=== PATIENT | male | born 1960 | race Hispanic/Latino ===

== ENCOUNTER 2017-11-05 21:15 | Emergency (ER) | payer SELFPAY ==
[2017-11-05] MEDS ORDERED: NA CHLORIDE 0.9% 1,000 ML ONE (21:46)
[2017-11-05] MEDS ORDERED: KETOROLAC 30 MG/ML INJ ONE (21:46)
[2017-11-05] MEDS ORDERED: ONDANSETRON 4 MG/2 ML VIAL ONE (21:46)
[2017-11-05 22:11] LABS: Absolute Lymphocytes (CBC) 3.4 K/uL (0.7-4.9); Absolute Monocytes 0.7 K/uL (0.1-1.3); Basophils % 0.6 % (0-1.3); Eosinophils % 7.1 % (0-4.4); Hematocrit 40.2 % (39.6-49.0); Lymphocytes % 43.5 % (15.3-44.8); MCH 32.6 pg (27.0-35.0); MCV 95.3 fL (80-100); MPV 8.2 fL (7.6-11.3); Monocytes % 9.4 % (3.3-12.3); RBC Red Blood Cell Count 4.22 M/uL (4.33-5.43)
[2017-11-05 22:29] LABS: ALT/SGPT 18 U/L (12-78); AST/SGOT 16 U/L (15-37); Albumin 3.7 g/dL (3.4-5.0); Alkaline Phosphatase 83 U/L (45-117); BUN Blood Urea Nitrogen 22 mg/dL (7-18); Bicarbonate 25 mmol/L (21-32); Bilirubin Direct < 0.1 mg/dL (0-0.2); Bilirubin Total 0.2 mg/dL (0.2-1.0); Glucose Level 117 mg/dL (74-106); Lipase 120 U/L (73-393); Potassium 3.7 mmol/L (3.5-5.1); Protein, Total 7.1 g/dL (6.4-8.2); Sodium Level 143 mmol/L (136-145)
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
[2017-11-06 00:49] LABS: Urine Blood NEGATIVE (NEG); Urine Glucose NEGATIVE (NEG); Urine Protein NEGATIVE (NEG); Urine Specific Gravity 1.015 (1.005-1.030)
[2017-11-06 00:50] VITALS: TEMP 99.1
[2017-11-06 00:51] VITALS: O2SAT 100
[2017-11-06 00:53] VITALS: BP 142/95
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
== END 2017-11-06 00:44 | disposition home or self-care (01) ==
LOC: ER 21:15
DX: S29.012A Strain of muscle and tendon of back wall of thorax, initial encounter (principal); V49.9XXA Car occupant (driver) (passenger) injured in unspecified traffic accident, initial encounter; E03.9 Hypothyroidism, unspecified
CPT/HCPCS: 36415; 70450; 71260; 72125; 74177; 80048; 80076; 81003; 83690; 85025; 86850; 86900; 86901; 96361; 96374; 96375; 99285; J2405; J7030; Q9967

== ENCOUNTER 2018-04-03 08:31 | Emergency (ER) | payer SELFPAY ==
--- NOTE | 2018-04-03 09:18 | ER ---
Nurse's Notes [facility] Name: Dario Lindsey Age: 57 yrs Sex: Male : 1960 Arrival Date: 04/03/2018 Time: 08:35 Bed 19 Private MD: None, None Diagnosis: Acute upper respiratory infection, unspecified;Acute pharyngitis Presentation: 04/03 08:38 Presenting complaint: Patient states: Sinus drainage/ congestion, cough and sore throat ss z 2 days. Denies fever. Transition of care: patient was not received from another setting of care. Onset of symptoms was April 01, 2018. Risk Assessment: Do you want to hurt yourself or someone else? Patient reports no desire to harm self or others. Initial Sepsis Screen: Does the patient meet any 2 criteria? No. Patient's initial sepsis screen is negative. Does the patient have a suspected source of infection? No. Patient's initial sepsis screen is negative. Care prior to arrival: None. 08:38 Method Of Arrival: Ambulatory ss 08:38 Acuity: DANIEL 4 ss Historical: - Allergies: 08:39 No Known Allergies; ss - PMHx: 08:39 Hypothyroidism; Hypertension; ss - PSHx: 08:39 None; ss - Immunization history:: Flu vaccine is not up to date. - Social history:: Smoking status: Patient uses tobacco products, denies chronic smoking, but will smoke occasionally. - Ebola Screening: : Patient denies exposure to infectious person Patient denies travel to an Ebola-affected area in the 21 days before illness onset. - Family history:: not pertinent. Screenin:50 Abuse screen: Denies threats or abuse. Denies injuries from another. Nutritional sv screening: No deficits noted. Tuberculosis screening: No symptoms or risk factors identified. Fall Risk None identified. Assessment: 08:50 General: Appears in no apparent distress. uncomfortable, Behavior is calm, cooperative, sv appropriate for age. Pain: Complains of pain in sore throat Pain currently is 7 out of 10 on a pain scale. Neuro: Level of Consciousness is awake, alert, obeys commands, Oriented to person, place, time, situation, Moves all extremities. Full function Gait is steady, Speech is normal. Respiratory: Reports cough that is non-productive, pain with cough Airway is patent Respiratory effort is even, unlabored, Respiratory pattern is regular, symmetrical. EENT: Oral mucosa is moist. Throat is pink. 09:32 Reassessment: Patient appears in no apparent distress at this time. No changes from sv previously documented assessment. Patient and/or family updated on plan of care and expected duration. Pain level reassessed. Patient is alert, oriented x 3, equal unlabored respirations, skin warm/dry/pink. Vital Signs: 08:39 BP 155 / 86; Pulse 86; Resp 17; Temp 97.7(TE); Pulse Ox 99% on R/A; Weight 72.57 kg; ss Pain 7/10; ED Course: 08:35 Patient arrived in ED. sb2 08:35 None, None is Private Physician. sb2 08:38 Triage completed. ss 08:39 Arm band placed on right wrist. ss 08:42 Birdie French, RN is Primary Nurse. sv 08:42 Torrey Goss MD is Attending Physician. curt 08:50 ED physician to see patient. sv 08:50 Patient has correct armband on for positive identification. Bed in low position. Head sv of bed elevated. 09:32 No provider procedures requiring assistance completed. Patient did not have IV access sv during this emergency room visit. Administered Medications: 09:32 Drug: Augmentin 875 mg Route: PO; sv 09:32 Follow up: Response: Medication administered at discharge. sv Outcome: 09:18 Discharge ordered by . [facility] 09:32 Discharged to home ambulatory. sv 09:32 Condition: stable 09:32 Discharge instructions given to patient, Instructed on discharge instructions, follow up and referral plans. medication usage, Demonstrated understanding of instructions, follow-up care, medications, Prescriptions given X 4. 09:32 Patient left the ED. sv Signatures: Birdie French, RN RN Torrey Morales MD MD cha Smirch, Shelby RN RN Adore Amaya sb2
--- NOTE | 2018-04-03 09:18 | EDPHYS ---
Physician Documentation [facility] Name: Dario Lindsey Age: 57 yrs Sex: Male : 1960 Arrival Date: 04/03/2018 Time: 08:35 Bed 19 Private MD: None, None ED Physician Torrey Goss HPI: 04/03 09:11 This 57 yrs old Male presents to ER via Ambulatory with complaints of Sore curt Throat, Cough. 09:11 The patient presents with sore throat. The patient describes throat pain as burning. curt Onset: The symptoms/episode began/occurred 2 day(s) ago. Severity of symptoms: At their worst the symptoms were mild, in the emergency department the symptoms are unchanged. Modifying factors: The symptoms are alleviated by nothing, the symptoms are aggravated by swallowing. Associated signs and symptoms: The patient has no apparent associated signs or symptoms. The patient has experienced similar episodes in the past, a few times. Historical: - Allergies: 08:39 No Known Allergies; ss - PMHx: 08:39 Hypothyroidism; Hypertension; ss - PSHx: 08:39 None; ss - Immunization history:: Flu vaccine is not up to date. - Social history:: Smoking status: Patient uses tobacco products, denies chronic smoking, but will smoke occasionally. - Ebola Screening: : Patient denies exposure to infectious person Patient denies travel to an Ebola-affected area in the 21 days before illness onset. - Family history:: not pertinent. ROS: 09:11 Constitutional: Negative for fever, chills, and weight loss, Eyes: Negative for injury, curt pain, redness, and discharge, Neck: Negative for injury, pain, and swelling, Cardiovascular: Negative for chest pain, palpitations, and edema, Respiratory: Negative for shortness of breath, cough, wheezing, and pleuritic chest pain, Abdomen/GI: Negative for abdominal pain, nausea, vomiting, diarrhea, and constipation, Back: Negative for injury and pain, : Negative for injury, bleeding, discharge, and swelling, MS/Extremity: Negative for injury and deformity, Skin: Negative for injury, rash, and discoloration, Neuro: Negative for headache, weakness, numbness, tingling, and seizure, Psych: Negative for depression, anxiety, suicide ideation, homicidal ideation, and hallucinations, Allergy/Immunology: Negative for hives, rash, and allergies, Endocrine: Negative for neck swelling, polydipsia, polyuria, polyphagia, and marked weight changes, Hematologic/Lymphatic: Negative for swollen nodes, abnormal bleeding, and unusual bruising. 09:11 ENT: Positive for difficulty swallowing, nasal discharge, rhinorrhea, sore throat. Exam: 09:11 Constitutional: This is a well developed, well nourished patient who is awake, alert, curt and in no acute distress. Head/Face: Normocephalic, atraumatic. Eyes: Pupils equal round and reactive to light, extra-ocular motions intact. Lids and lashes normal. Conjunctiva and sclera are non-icteric and not injected. Cornea within normal limits. Periorbital areas with no swelling, redness, or edema. Neck: Trachea midline, no thyromegaly or masses palpated, and no cervical lymphadenopathy. Supple, full range of motion without nuchal rigidity, or vertebral point tenderness. No Meningismus. Chest/axilla: Normal chest wall appearance and motion. Nontender with no deformity. No lesions are appreciated. Cardiovascular: Regular rate and rhythm with a normal S1 and S2. No gallops, murmurs, or rubs. Normal PMI, no JVD. No pulse deficits. Respiratory: Lungs have equal breath sounds bilaterally, clear to auscultation and percussion. No rales, rhonchi or wheezes noted. No increased work of breathing, no retractions or nasal flaring. Abdomen/GI: Soft, non-tender, with normal bowel sounds. No distension or tympany. No guarding or rebound. No evidence of tenderness throughout. Back: No spinal tenderness. No costovertebral tenderness. Full range of motion. Male : Normal genitalia with no discharge or lesions. Skin: Warm, dry with normal turgor. Normal color with no rashes, no lesions, and no evidence of cellulitis. MS/ Extremity: Pulses equal, no cyanosis. Neurovascular intact. Full, normal range of motion. Neuro: Awake and alert, GCS 15, oriented to person, place, time, and situation. Cranial nerves II-XII grossly intact. Motor strength 5/5 in all extremities. Sensory grossly intact. Cerebellar exam normal. Normal gait. Psych: Awake, alert, with orientation to person, place and time. Behavior, mood, and affect are within normal limits. 09:11 ENT: Posterior pharynx: Tonsils: with erythema, Uvula: midline, erythema, swelling, that is mild, erythema, that is mild, exudate, is not appreciated. Vital Signs: 08:39 BP 155 / 86; Pulse 86; Resp 17; Temp 97.7(TE); Pulse Ox 99% on R/A; Weight 72.57 kg; ss Pain 7/10; MDM: 08:43 Patient medically screened. [facility] 09:17 Data reviewed: vital signs, nurses notes. [facility] Administered Medications: 09:32 Drug: Augmentin 875 mg Route: PO; sv 09:32 Follow up: Response: Medication administered at discharge. sv Disposition: 04/03/18 09:18 Discharged to Home. Impression: Acute upper respiratory infection, unspecified, Acute pharyngitis. - Condition is Stable. - Discharge Instructions: Hypertension, Pharyngitis, Upper Respiratory Infection, Adult, Cool Mist Vaporizer, Hypertension, [id number], Pharyngitis, [id number], Cough, Adult, Sore Throat, [id number]. - Prescriptions for Cheratussin AC 10- 100 mg/5 mL Oral liquid - take 10 milliliter by ORAL route every 4 hours; 120 milliliter. Augmentin 875- 125 mg Oral Tablet - take 1 tablet by ORAL route every 12 hours for 10 days; 20 tablet. Claritin 10 mg Oral Tablet - take 1 tablet by ORAL route once daily As needed; 30 tablet. Medrol (Sundeep) 4 mg Oral Tablets, Dose Pack - take 1 tablet by ORAL route as directed - follow package instructions; 1 packet. - Work release form, Medication Reconciliation Form, Thank You Letter, Antibiotic Education, Prescription Opioid Use form. - Follow up: Private Physician; When: 2 - 3 days; Reason: Recheck today's complaints, Continuance of care, Re-evaluation by your physician. - Problem is new. - Symptoms have improved. Signatures: Birdie French RN RN Torrey Morales MD MD cha Smirch, Shelby, RN RN ss Corrections: (The following items were deleted from the chart) 09:32 09:18 04/03/2018 09:18 Discharged to Home. Impression: Acute upper respiratory sv infection, unspecified; Acute pharyngitis. Condition is Stable. Forms are Medication Reconciliation Form, Thank You Letter, Antibiotic Education, Prescription Opioid Use. Follow up: Private Physician; When: 2 - 3 days; Reason: Recheck today's complaints, Continuance of care, Re-evaluation by your physician. Problem is new. Symptoms have improved. curt
[2018-04-03] MEDS ORDERED: AMOX/K CLAV 875 MG TAB ONE (09:38)
[2018-04-03 09:42] VITALS: BP 155/86; TEMP 97.7; O2SAT 99
== END 2018-04-03 09:32 | disposition home or self-care (01) ==
LOC: ER 08:31
DX: J06.9 Acute upper respiratory infection, unspecified (principal); J02.9 Acute pharyngitis, unspecified; E03.9 Hypothyroidism, unspecified; I10 Essential (primary) hypertension
CPT/HCPCS: 99283

== ENCOUNTER 2018-04-11 09:01 | Emergency (ER) | payer BC, SELFPAY ==
--- NOTE | 2018-04-11 10:06 | EDPHYS ---
Physician Documentation [facility] Name: Dario Lindsey Age: 57 yrs Sex: Male : 1960 Arrival Date: 04/11/2018 Time: 09:04 Bed 8 Private MD: ED Physician Torrey Goss HPI: 04/11 09:47 This 57 yrs old Male presents to ER via Ambulatory with complaints of Fever, curt Cough. 09:47 The patient reports fever, that was measured at 100 degrees Fahrenheit. Onset: The curt symptoms/episode began/occurred 3 day(s) ago. Modifying factors: there are no obvious modifying factors. Associated signs and symptoms: Pertinent positives: chills, cough. Severity of symptoms: At their worst the symptoms were moderate in the emergency department the symptoms are unchanged. The patient has not experienced similar symptoms in the past. Historical: - Allergies: 09:10 No Known Allergies; aa5 - PMHx: 09:10 Hypertension; Hypothyroidism; aa5 - PSHx: 09:10 None; aa5 - Immunization history:: Flu vaccine is not up to date. - Social history:: Smoking status: Patient uses tobacco products, 4 cigarettes a day . - Ebola Screening: : No symptoms or risks identified at this time. - Family history:: not pertinent. ROS: 09:47 Eyes: Negative for injury, pain, redness, and discharge, ENT: Negative for injury, curt pain, and discharge, Neck: Negative for injury, pain, and swelling, Cardiovascular: Negative for chest pain, palpitations, and edema, Abdomen/GI: Negative for abdominal pain, nausea, vomiting, diarrhea, and constipation, Back: Negative for injury and pain, : Negative for injury, bleeding, discharge, and swelling, MS/Extremity: Negative for injury and deformity, Skin: Negative for injury, rash, and discoloration, Neuro: Negative for headache, weakness, numbness, tingling, and seizure, Psych: Negative for depression, anxiety, suicide ideation, homicidal ideation, and hallucinations, Allergy/Immunology: Negative for hives, rash, and allergies, Endocrine: Negative for neck swelling, polydipsia, polyuria, polyphagia, and marked weight changes, Hematologic/Lymphatic: Negative for swollen nodes, abnormal bleeding, and unusual bruising. 09:47 Constitutional: Positive for body aches, chills. 09:47 Respiratory: Positive for cough. Exam: 09:47 Constitutional: This is a well developed, well nourished patient who is awake, alert, curt and in no acute distress. Head/Face: Normocephalic, atraumatic. Eyes: Pupils equal round and reactive to light, extra-ocular motions intact. Lids and lashes normal. Conjunctiva and sclera are non-icteric and not injected. Cornea within normal limits. Periorbital areas with no swelling, redness, or edema. ENT: Nares patent. No nasal discharge, no septal abnormalities noted. Tympanic membranes are normal and external auditory canals are clear. Oropharynx with no redness, swelling, or masses, exudates, or evidence of obstruction, uvula midline. Mucous membranes moist. Neck: Trachea midline, no thyromegaly or masses palpated, and no cervical lymphadenopathy. Supple, full range of motion without nuchal rigidity, or vertebral point tenderness. No Meningismus. Chest/axilla: Normal chest wall appearance and motion. Nontender with no deformity. No lesions are appreciated. Cardiovascular: Regular rate and rhythm with a normal S1 and S2. No gallops, murmurs, or rubs. Normal PMI, no JVD. No pulse deficits. Respiratory: Lungs have equal breath sounds bilaterally, clear to auscultation and percussion. No rales, rhonchi or wheezes noted. No increased work of breathing, no retractions or nasal flaring. Abdomen/GI: Soft, non-tender, with normal bowel sounds. No distension or tympany. No guarding or rebound. No evidence of tenderness throughout. Back: No spinal tenderness. No costovertebral tenderness. Full range of motion. Male : Normal genitalia with no discharge or lesions. Skin: Warm, dry with normal turgor. Normal color with no rashes, no lesions, and no evidence of cellulitis. MS/ Extremity: Pulses equal, no cyanosis. Neurovascular intact. Full, normal range of motion. Neuro: Awake and alert, GCS 15, oriented to person, place, time, and situation. Cranial nerves II-XII grossly intact. Motor strength 5/5 in all extremities. Sensory grossly intact. Cerebellar exam normal. Normal gait. Psych: Awake, alert, with orientation to person, place and time. Behavior, mood, and affect are within normal limits. Vital Signs: 09:10 BP 147 / 89; Pulse 80; Resp 18 S; Temp 97.8(O); Pulse Ox 98% on R/A; Weight 73.48 kg aa5 (R); Height 5 ft. 7 in. (170.18 cm) (R); Pain 0/10; 09:10 Body Mass Index 25.37 (73.48 kg, 170.18 cm) aa5 MDM: 09:15 Patient medically screened. [facility] 09:48 Data reviewed: vital signs, nurses notes, lab test result(s), radiologic studies. [facility] 04/11 09:15 Order name: Influenza Screen (a \T\ B); Complete Time: 10:05 [facility] 04/11 09:15 Order name: Chest Pa And Lat (2 Views) XRAY [facility] 04/11 09:46 Order name: EKG; Complete Time: 09:47 [facility] 04/11 09:46 Order name: EKG - Nurse/Tech; Complete Time: 10:23 [facility] Administered Medications: 10:32 Drug: Zithromax 500 mg Route: PO; [facility] 10:38 Follow up: Response: Medication administered at discharge. aa5 Disposition: 04/11/18 10:06 Discharged to Home. Impression: Fever, unspecified, Cough. - Condition is Stable. - Discharge Instructions: Fever, Adult, Cool Mist Vaporizer, Cough, Adult, Faqh-vl-Grjh, Cough, Adult. - Prescriptions for Zithromax 500 mg Oral Tablet - take 1 tablet by ORAL route once daily for 4 days; 4 tablet. - Medication Reconciliation Form, Thank You Letter, Antibiotic Education, Prescription Opioid Use, Work release form form. - Follow up: Private Physician; When: 2 - 3 days; Reason: Recheck today's complaints, Continuance of care, Re-evaluation by your physician. - Problem is new. - Symptoms have improved. Signatures: Dispatcher [employer] EDMS Torrey Goss MD MD cha Calderon, Audri, RN RN aa5 Corrections: (The following items were deleted from the chart) 10:39 10:06 04/11/2018 10:06 Discharged to Home. Impression: Fever, unspecified; Cough. aa5 Condition is Stable. Discharge Instructions: Fever, Adult, Cool Mist Vaporizer, Cough, Adult, Gcrr-[id number], Cough, Adult. Prescriptions for Zithromax 500 mg Oral Tablet - take 1 tablet by ORAL route once daily for 4 days; 4 tablet. and Forms are Medication Reconciliation Form, Thank You Letter, Antibiotic Education, Prescription Opioid Use. Follow up: Private Physician; When: 2 - 3 days; Reason: Recheck today's complaints, Continuance of care, Re-evaluation by your physician. Problem is new. Symptoms have improved. curt
--- NOTE | 2018-04-11 10:06 | ER ---
Nurse's Notes [facility] Name: Dario Lindsey Age: 57 yrs Sex: Male : 1960 Arrival Date: 04/11/2018 Time: 09:04 Bed 8 Private MD: Diagnosis: Fever, unspecified;Cough Presentation: 04/11 09:10 Presenting complaint: Patient states: cough x 1-2 weeks ago. Pt reports cough is aa5 productive at times with whitish sputum. Pt also reports chest congestion and states "I think I had a fever last night". Pt states "my back hurts when I cough". Pt reports being seen here 04/03/18 and prescribed Augmentin. 09:10 Transition of care: patient was not received from another setting of care. Onset of aa5 symptoms was April 2018. Risk Assessment: Do you want to hurt yourself or someone else? Patient reports no desire to harm self or others. Initial Sepsis Screen: Does the patient meet any 2 criteria? No. Patient's initial sepsis screen is negative. Does the patient have a suspected source of infection? No. Patient's initial sepsis screen is negative. Care prior to arrival: None. 09:10 Method Of Arrival: Ambulatory aa5 09:10 Acuity: DANIEL 3 aa5 Historical: - Allergies: 09:10 No Known Allergies; aa5 - PMHx: 09:10 Hypertension; Hypothyroidism; aa5 - PSHx: 09:10 None; aa5 - Immunization history:: Flu vaccine is not up to date. - Social history:: Smoking status: Patient uses tobacco products, 4 cigarettes a day . - Ebola Screening: : No symptoms or risks identified at this time. - Family history:: not pertinent. Screenin:10 Abuse screen: Denies threats or abuse. Nutritional screening: No deficits noted. aa5 Tuberculosis screening: No symptoms or risk factors identified. Fall Risk None identified. Assessment: 09:10 General: Appears comfortable, Behavior is calm, cooperative. Pain: Complains of pain in aa5 back only with cough Pain currently is 0 out of 10 on a pain scale. Quality of pain is described as aching, sore. Neuro: Level of Consciousness is awake, alert, obeys commands, Oriented to person, place, time, situation. Cardiovascular: Heart tones S1 S2 present Rhythm is regular. Respiratory: Reports cough Airway is patent Respiratory effort is even, unlabored, Respiratory pattern is regular, symmetrical, Breath sounds are clear bilaterally. Denies shortness of breath. GI: No signs and/or symptoms were reported involving the gastrointestinal system. : No signs and/or symptoms were reported regarding the genitourinary system. EENT: No signs and/or symptoms were reported regarding the EENT system. Derm: Skin is dry, Skin is normal, Skin temperature is warm. Musculoskeletal: Range of motion: intact in all extremities. 10:38 Neuro: Level of Consciousness is awake, alert, obeys commands, Oriented to person, aa5 place, time, situation. Respiratory: Airway is patent Respiratory effort is even, unlabored, Respiratory pattern is regular, symmetrical. Derm: Skin is dry, Skin is normal, Skin temperature is warm. Vital Signs: 09:10 BP 147 / 89; Pulse 80; Resp 18 S; Temp 97.8(O); Pulse Ox 98% on R/A; Weight 73.48 kg aa5 (R); Height 5 ft. 7 in. (170.18 cm) (R); Pain 0/10; 09:10 Body Mass Index 25.37 (73.48 kg, 170.18 cm) aa5 ED Course: 09:04 Patient arrived in ED. mr 09:13 Hawa Lyle, RN is Primary Nurse. aa5 09:13 Arm band placed on Patient placed in an exam room, on a stretcher. aa5 09:13 Patient has correct armband on for positive identification. Bed in low position. Call aa5 light in reach. Side rails up X 1. Adult w/ patient. 09:14 Triage completed. aa5 09:15 Torrey Goss MD is Attending Physician. curt 09:30 Flu and/or RSV swab sent to lab. jb1 10:01 Patient moved to radiology via wheelchair. jb2 10:03 X-ray completed. Patient tolerated procedure well. Patient moved back from radiology. sw 10:03 Chest Pa And Lat (2 Views) XRAY In Process Unspecified. EDMS 10:24 EKG done, by commercial tire service technician. reviewed by Torrey Goss MD. at1 10:30 No provider procedures requiring assistance completed. Patient did not have IV access aa5 during this emergency room visit. Administered Medications: 10:32 Drug: Zithromax 500 mg Route: PO; aa5 10:38 Follow up: Response: Medication administered at discharge. aa5 Outcome: 10:06 Discharge ordered by . curt 10:38 Discharged to home ambulatory, with significant other. aa5 10:38 Condition: stable 10:38 Discharge instructions given to patient, Instructed on discharge instructions, follow up and referral plans. medication usage, Demonstrated understanding of instructions, follow-up care, medications, Prescriptions given X 1, Pt instructed to continue Augmentin by Dr. Goss. 10:39 Patient left the ED. aa5 Signatures: Dispatcher [employer] EDMS Magdy Suarez jb1 Torrey Goss MD MD cha Rivera, Martha Roblero, Gonsalo jb2 Hawa Lyle, BRITTANY RN aa5 Mariana Culp, casket liner EKG Tat1 Cally Aguilar Corrections: (The following items were deleted from the chart) 09:19 09:10 Presenting complaint: Patient states: cough x 1-2 weeks ago. Pt reports cough is aa5 productive at times with whitish sputum. Pt also reports chest congestion and states "I think I had a fever last night". Pt states "my back hurts when I cough" aa5 10:03 10:02 X-ray completed. Portable x-ray completed in exam room. Patient tolerated sw procedure well. sw
[2018-04-11] MEDS ORDERED: AZITHROMYCIN 250 MG TAB ONE (10:41)
--- NOTE | 2018-04-11 10:45 | RAD REPORT ---
EXAM DESCRIPTION: RAD - Chest Pa And Lat (2 Views) - 04/11/2018 10:05 am CLINICAL HISTORY: COUGH Chest pain. COMPARISON: No comparisons FINDINGS: The lungs are clear. The heart is normal in size. No displaced fractures. IMPRESSION: No acute or concerning finding suspected.
[2018-04-11 10:47] VITALS: BP 147/89; TEMP 97.8; O2SAT 98
--- NOTE | 2018-04-11 12:03 | EKG ---
Test Date: 2018-04-11 Test Time: 10:15:58 Configuration Engineer: VINH MEASUREMENT RESULTS: Intervals: Rate: 69 CO: 120 QRSD: 108 QT: 394 QTc: 422 [place]: P: 73 CO: 120 QRS: -2 T: 48 INTERPRETIVE STATEMENTS: Normal sinus rhythm Right bundle branch block Abnormal ECG No previous ECG available for comparison Electronically Signed On 04-11-18 12:02:42 [employer] by Denver Zarate
== END 2018-04-11 10:39 | disposition home or self-care (01) ==
LOC: ER 09:01
DX: R50.9 Fever, unspecified (principal); R05 Cough; R94.31 Abnormal electrocardiogram [ECG] [EKG]; I45.10 Unspecified right bundle-branch block; F17.210 Nicotine dependence, cigarettes, uncomplicated
CPT/HCPCS: 71046; 87804; 93005; 99284

== ENCOUNTER 2018-05-29 09:08 | Emergency (ER) | payer BC, SELFPAY ==
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
[2018-05-29] MEDS ORDERED: IBUPROFEN 400 MG TAB ONE (09:47)
[2018-05-29 10:11] VITALS: TEMP 97.3
[2018-05-29 10:12] VITALS: BP 148/87; O2SAT 99
== END 2018-05-29 10:07 | disposition home or self-care (01) ==
LOC: ER 09:08
DX: M62.830 Muscle spasm of back (principal); I10 Essential (primary) hypertension; E03.9 Hypothyroidism, unspecified; Z87.891 Personal history of nicotine dependence
CPT/HCPCS: 99282

== ENCOUNTER 2022-03-19 17:41 | Emergency (ER) | payer SELFPAY ==
--- OUTSIDE RECORDS SUMMARY | 2022-03-19 17:46 | XMS REPORT | Continuity of Care Document ---
:1960 Author Organization [facility] t Address [address] [place] [address] Care Team Providers Name Role Phone Nicky Lindsey Primary Care Physician [phone] Problems This patient has no known problems. Allergies, Adverse Reactions, Alerts This patient has no known allergies or adverse reactions. Medications Ordered Filled Start Stop Current Ordering Indication Dosage Frequency Signature Comments Components Source Medication Medication Date Date Medication? Clinician (SIG) Name Name TAKE 1 No TABLET BY 8-29 MOUTH ONCE 00:00: DAILY 00 atorvastati 2021-0 No 1mg n 40 mg 5-25 tablet 00:00: 00 amlodipine 2021-0 No 1mg 10 mg 5-25 tablet 00:00: 00 Dose 2021-0 No Unknown 5-25 00:00: 00 Dose 2021-0 No Unknown 3-12 00:00: 00 Dose 2021-0 No Unknown 3-12 00:00: 00 Dose 2021-0 No Unknown 3-12 00:00: 00 Dose 2021-0 No Unknown 3-12 00:00: 00 Dose 2021-0 No Unknown 3-12 00:00: 00 Dose 2021-0 No Unknown 3-12 00:00: 00 Dose 2021-0 No Unknown 3-12 00:00: 00 Dose 2021-0 No Unknown 3-12 00:00: 00 Dose 2021-0 No Unknown 3-12 00:00: 00 Dose 2021-0 No Unknown 3-12 00:00: 00 Dose 2021-0 No Unknown 3-12 00:00: 00 Dose 2021-0 No Unknown 3-12 00:00: 00 Dose 2021-0 No Unknown 3-12 00:00: 00 Dose 2022-0 No Unknown 3-12 00:00: 00 Dose 2022-0 No Unknown 3-12 00:00: 00 Dose 2022-0 No Unknown 3-12 00:00: 00 Dose 2022-0 No Unknown 3-12 00:00: 00 Dose 2022-0 No Unknown 3-12 00:00: 00 Dose 2022-0 No Unknown 3-12 00:00: 00 Dose 2022-0 No Unknown 3-12 00:00: 00 Dose 2022-0 No Unknown 3-12 00:00: 00 Dose 2022-0 No Unknown 3-12 00:00: 00 Dose 2022-0 No Unknown 3-12 00:00: 00 Dose 2022-0 No Unknown 3-12 00:00: 00 Dose 2022-0 No Unknown 3-12 00:00: 00 Dose 2022-0 No Unknown 3-12 00:00: 00 Dose 2022-0 No Unknown 3-12 00:00: 00 Dose 2022-0 No Unknown 3-12 00:00: 00 Dose 2022-0 No Unknown 3-12 00:00: 00 Dose 2022-0 No Unknown 3-12 00:00: 00 Dose 2022-0 No Unknown 3-12 00:00: 00 Dose 2022-0 No Unknown 3-12 00:00: 00 Dose 2022-0 No Unknown 3-12 00:00: 00 Dose 2022-0 No Unknown 3-12 00:00: 00 Dose 2022-0 No Unknown 3-12 00:00: 00 Dose 2022-0 No Unknown 3-12 00:00: 00 Dose 2022-0 No Unknown 3-12 00:00: 00 Dose 2022-0 No Unknown 3-12 00:00: 00 Dose 2022-0 No Unknown 3-12 00:00: 00 Dose 2022-0 No Unknown 3-12 00:00: 00 Dose 2022-0 No Unknown 3-12 00:00: 00 Dose 2022-0 No Unknown 3-12 00:00: 00 Dose 2022-0 No Unknown 3-12 00:00: 00 Dose 2022-0 No Unknown 3-12 00:00: 00 Dose 2022-0 No Unknown 3-12 00:00: 00 Dose 2022-0 No Unknown 3-12 00:00: 00 Dose 2022-0 No Unknown 3-12 00:00: 00 Dose 2022-0 No Unknown 3-12 00:00: 00 Dose 2022-0 No Unknown 3-12 00:00: 00 Dose 2022-0 No Unknown 3-12 00:00: 00 Dose 2022-0 No Unknown 3-12 00:00: 00 Dose 2022-0 No Unknown 3-12 00:00: 00 Dose 2022-0 No Unknown 3-12 00:00: 00 Dose 2022-0 No Unknown 3-12 00:00: 00 Dose 2022-0 No Unknown 3-12 00:00: 00 Dose 2022-0 No Unknown 3-12 00:00: 00 Dose 2022-0 No Unknown 3-12 00:00: 00 Dose 2-0 No Unknown 3-12 00:00: 00 Dose 2-0 No Unknown 3-12 00:00: 00 Dose 2022-0 No Unknown 3-12 00:00: 00 Dose 2022-0 No Unknown 3-12 00:00: 00 Dose 2-0 No Unknown 3-12 00:00: 00 Dose 2-0 No Unknown 3-12 00:00: 00 Dose 2-0 No Unknown 3-12 00:00: 00 amlodipine 2-0 No 1mg 10 mg 3-12 tablet 00:00: 00 Dose 2-0 No Unknown 3-12 00:00: 00 atorvastati 2-0 No 1mg n 40 mg 3-12 tablet 00:00: 00 Dose 2-0 No Unknown 3-12 00:00: 00 Dose 2022-0 No Unknown 3-12 00:00: 00 Dose 2022-0 No Unknown 3-12 00:00: 00 Dose 2022-0 No Unknown 3-12 00:00: 00 Dose 2022-0 No Unknown 3-12 00:00: 00 Dose 2022-0 No Unknown 3-12 00:00: 00 Dose 2022-0 No Unknown 3-12 00:00: 00 Dose 2022-0 No Unknown 3-12 00:00: 00 Dose 2022-0 No Unknown 3-12 00:00: 00 Dose 2022-0 No Unknown 3-12 00:00: 00 Dose 2022-0 No Unknown 3-12 00:00: 00 Dose 1-1 No Unknown 1-18 00:00: 00 amlodipine 2020-1 No 1mg 10 mg 1-18 tablet 00:00: 00 atorvastati 2020-1 No 1mg n 40 mg 1-18 tablet 00:00: 00 atorvastati 2020-0 No 1mg n 40 mg 8-12 tablet 00:00: 00 pravastatin 2020-0 No 1mg 20 mg 8-11 tablet 00:00: 00 Dose 2019-0 No Unknown 7-02 00:00: 00 cetirizine 2019-0 No 1mg 5 7-02 mg-pseudoep 00:00: hedrine ER 00 120 mg tablet,exte nded release,12h r prednisone 2019-0 No 1mg 20 mg 7-02 tablet 00:00: 00 fluticasone 2019-0 No 1mcg/ac propionate 7-02 tuation 50 00:00: mcg/actuati 00 on nasal spray,suspe nsion amoxicillin 2019-0 No 1mg 500 mg 7-02 capsule 00:00: 00 amlodipine 2019-0 No 1mg 10 mg 7-02 tablet 00:00: 00 amlodipine 2019-0 No 1mg 10 mg 7-02 tablet 00:00: 00 amlodipine 2018-0 No 1mg 5 mg tablet 9-29 00:00: 00 benazepril 2018-0 No 1mg 20 mg 9-29 tablet 00:00: 00 naproxen 2016-0 No 1mg 500 mg 7-29 tablet 00:00: 00 cyclobenzap 2016-0 No 1mg rine 10 mg 7-29 tablet 00:00: 00 amoxicillin 2015-0 No 2mg 500 mg 8-02 capsule 00:00: 00 Immunizations Ordered Immunization Filled Immunization Date Status Commen ts Source Name Name influenza, high-dose, 2021-06-11 Completed quadrivalent 00:00:00 Pneumococcal conjugate 2021-06-11 Completed P 00:00:00 Vital Signs Vital Name Observation Time Observation Value Comments Source BP Systolic 2022-03-11 13:36:00 126 mm[Hg] BP Diastolic 2022-03-11 13:36:00 75 mm[Hg] Weight Measured 2022-03-11 13:36:00 151.20 pounds Height Measured 2022-03-11 13:36:00 68.98 inches Body Temperature 2022-03-11 13:36:00 98.10 degrees Heart Rate 2022-03-11 13:36:00 68.00 /min Respiratory Rate 2022-03-11 13:36:00 BP Systolic 2022-01-25 16:09:00 154 mm[Hg] BP Diastolic 2022-01-25 16:09:00 82 mm[Hg] Weight Measured 2022-01-25 16:09:00 152.60 pounds Height Measured 2022-01-25 16:09:00 68.98 inches Body Temperature 2022-01-25 16:09:00 97.70 degrees Heart Rate 2022-01-25 16:09:00 67.00 /min Respiratory Rate 2022-01-25 16:09:00 16.00 /min BP Systolic 2021-08-24 16:41:00 129 mm[Hg] BP Diastolic 2021-08-24 16:41:00 72 mm[Hg] Weight Measured 2021-08-24 16:41:00 151.40 pounds Height Measured 2021-08-24 16:41:00 68.98 inches Body Temperature 2021-08-24 16:41:00 98.20 degrees Heart Rate 2021-08-24 16:41:00 75.00 /min Respiratory Rate 2021-08-24 16:41:00 18.00 /min BP Systolic 2021-06-11 09:20:00 136 mm[Hg] BP Diastolic 2021-06-11 09:20:00 74 mm[Hg] Weight Measured 2021-06-11 09:20:00 155.60 pounds Height Measured 2021-06-11 09:20:00 68.98 inches Body Temperature 2021-06-11 09:20:00 98.10 degrees Heart Rate 2021-06-11 09:20:00 63.00 /min Respiratory Rate 2021-06-11 09:20:00 21.00 /min BP Systolic 2021-02-17 16:36:00 126 mm[Hg] BP Diastolic 2021-02-17 16:36:00 67 mm[Hg] Weight Measured 2021-02-17 16:36:00 152.80 pounds Height Measured 2021-02-17 16:36:00 68.98 inches Body Temperature 2021-02-17 16:36:00 98.40 degrees Heart Rate 2021-02-17 16:36:00 76.00 /min Respiratory Rate 2021-02-17 16:36:00 24.00 /min BP Systolic 2020-10-30 08:43:00 131 mm[Hg] BP Diastolic 2020-10-30 08:43:00 71 mm[Hg] Weight Measured 2020-10-30 08:43:00 153.20 pounds Height Measured 2020-10-30 08:43:00 68.98 inches Body Temperature 2020-10-30 08:43:00 98.20 degrees Heart Rate 2020-10-30 08:43:00 67.00 /min Respiratory Rate 2020-10-30 08:43:00 17.00 /min BP Systolic 2020-06-19 09:38:00 116 mm[Hg] BP Diastolic 2020-06-19 09:38:00 72 mm[Hg] Weight Measured 2020-06-19 09:38:00 157.00 pounds Height Measured 2020-06-19 09:38:00 68.98 inches Body Temperature 2020-06-19 09:38:00 97.80 degrees Heart Rate 2020-06-19 09:38:00 77.00 /min Respiratory Rate 2020-06-19 09:38:00 16.00 /min BP Systolic 2018-10-01 08:21:00 138 mm[Hg] BP Diastolic 2018-10-01 08:21:00 79 mm[Hg] Weight Measured 2018-10-01 08:21:00 160.00 pounds Height Measured 2018-10-01 08:21:00 68.98 inches Body Temperature 2018-10-01 08:21:00 98.50 degrees Heart Rate 2018-10-01 08:21:00 72.00 /min Respiratory Rate 2018-10-01 08:21:00 16.00 /min BP Systolic 2017-12-29 13:48:00 158 mm[Hg] BP Diastolic 2017-12-29 13:48:00 88 mm[Hg] Weight Measured 2017-12-29 13:48:00 161.20 pounds Height Measured 2017-12-29 13:48:00 68.98 inches Body Temperature 2017-12-29 13:48:00 98.60 degrees Heart Rate 2017-12-29 13:48:00 75.00 /min Respiratory Rate 2017-12-29 13:48:00 18.00 /min BP Systolic 2015-10-29 08:43:00 138 mm[Hg] BP Diastolic 2015-10-29 08:43:00 90 mm[Hg] Weight Measured 2015-10-29 08:43:00 155.80 pounds Height Measured 2015-10-29 08:43:00 68.98 inches Body Temperature 2015-10-29 08:43:00 98.00 degrees Heart Rate 2015-10-29 08:43:00 78.00 /min Respiratory Rate 2015-10-29 08:43:00 17.00 /min Procedures This patient has no known procedures. Plan of Care Planned Activity Planned Date Details Comments Source Goal Plan of Care Note [code = 72489-7] Goal Plan of Care Note [code = 13880-4] Goal Plan of Care Note [code = 38818-2] Goal Plan of Care Note [code = 76011-7] Goal Plan of Care Note [code = 91022-3] Goal Plan of Care Note [code = 32202-3] Goal Plan of Care Note [code = 76295-2] Goal Plan of Care Note [code = 91472-7] Goal Plan of Care Note [code = 02126-7] Goal Plan of Care Note [code = 72657-9] Goal Plan of Care Note [code = 98352-4] Goal Plan of Care Note [code = 95225-8] Goal Plan of Care Note [code = 28933-7] Goal Plan of Care Note [code = 26899-9] Goal Plan of Care Note [code = 98302-7] Goal Plan of Care Note [code = 30406-8] Goal Plan of Care Note [code = 84900-8] Goal Plan of Care Note [code = 81601-1] Goal Plan of Care Note [code = 51920-6] Goal Plan of Care Note [code = 34286-4] Goal Plan of Care Note [code = 58468-1] Encounters Start End Encounter Admission Attending Care Care Encounter Source Date/Time Date/Time Type Type Clinicians Facility Department ID 2022-03-11 2022-03-11 Outpatient [facility] [id number] 022 Howie 13:26:46 13:26:46 1210 F Jose 2022-03-11 2022-03-11 Outpatient [id number] 00:00:00 00:00:00 Visit [id number] 2022-02-20 2022-02-20 Outpatient [facility] [id number] 022 Howie 14:10:30 14:10:30 1121 F Jose 2022-01-27 2022-01-27 Outpatient [facility] SFA [id number] 022 Howie 14:24:08 14:24:08 1028 F Jose 2022-01-25 2022-01-25 Outpatient [facility] [id number] 022 Howie 16:04:52 16:04:52 1026 F Jose Results Test Description Test Time Test Comments Results Result Comments Source CBC W/AUTO DIFF 2022-02-21 00:00:00 Test Item Value Reference Range Interpretation Comme nts WBC (test code = 1001) 8.9 K/UL RBC (test code = 1002) 4.12 M/UL HEMOGLOBIN (test code = 1003) 12.8 G/DL HEMATOCRIT (test code = 1004) 37.6 % MCV (test code = 1005) 91.3 fL MCH (test code = 1006) 31.1 PG MCHC (test code = 1007) 34.0 G/DL RDW (test code = 1038) 12.4 % NEUTROPHILS (test code = 1008) 46.3 % LYMPHOCYTES (test code = 1010) 31.4 % MONOCYTES (test code = 1011) 10.9 % EOSINOPHILS (test code = 1012) 10.4 % BASOPHILS (test code = 1013) 0.8 % IMMATURE GRANULOCYTES (test code = 1036) 0.2 % NUCLEATED RBCS (test code = 1065) 0.0 /100WBC'S PLATELET COUNT (test code = 1015) 233 K/UL ABSOLUTE NEUTROPHILS (test code = 1066) 4.14 K/UL ABSOLUTE LYMPHOCYTES (test code = 1067) 2.80 K/UL ABSOLUTE MONOCYTES (test code = 1068) 0.97 K/UL ABSOLUTE EOSINOPHILS (test code = 1040) 0.93 K/UL ABSOLUTE BASOPHILS (test code = 1069) 0.07 K/UL ABS IMMATURE GRANULOCYTES (test code = 1020) 0.02 K/UL ABS NUCLEATED RBCS (test code = 74474) 0.00 K/UL CBC W/AUTO [id number] 00:00:00 Test Item Value Reference Range Interpretation Comments WBC (test code = 1001) 8.9 K/UL RBC (test code = 1002) 4.12 M/UL HEMOGLOBIN (test code = 1003) 12.8 G/DL HEMATOCRIT (test code = 1004) 37.6 % MCV (test code = 1005) 91.3 fL MCH (test code = 1006) 31.1 PG MCHC (test code = 1007) 34.0 G/DL RDW (test code = 1038) 12.4 % NEUTROPHILS (test code = 1008) 46.3 % LYMPHOCYTES (test code = 1010) 31.4 % MONOCYTES (test code = 1011) 10.9 % EOSINOPHILS (test code = 1012) 10.4 % BASOPHILS (test code = 1013) 0.8 % IMMATURE GRANULOCYTES (test 0.2 % code = 1036) NUCLEATED RBCS (test code = 0.0 /100WBC'S 1065) PLATELET COUNT (test code = 233 K/UL 1015) ABSOLUTE NEUTROPHILS (test code 4.14 K/UL = 1066) ABSOLUTE LYMPHOCYTES (test code 2.80 K/UL = 1067) ABSOLUTE MONOCYTES (test code = 0.97 K/UL 1068) ABSOLUTE EOSINOPHILS (test code 0.93 K/UL = 1040) ABSOLUTE BASOPHILS (test code = 0.07 K/UL 1069) ABS IMMATURE GRANULOCYTES (test 0.02 K/UL code = 1020) ABS NUCLEATED RBCS (test code = 0.00 K/UL 45758) CBC W/AUTO [id number] 00:00:00 Test Item Value Reference Range Interpretation Comments WBC (test code = 1001) 8.9 K/UL RBC (test code = 1002) 4.12 M/UL HEMOGLOBIN (test code = 1003) 12.8 G/DL HEMATOCRIT (test code = 1004) 37.6 % MCV (test code = 1005) 91.3 fL MCH (test code = 1006) 31.1 PG MCHC (test code = 1007) 34.0 G/DL RDW (test code = 1038) 12.4 % NEUTROPHILS (test code = 1008) 46.3 % LYMPHOCYTES (test code = 1010) 31.4 % MONOCYTES (test code = 1011) 10.9 % EOSINOPHILS (test code = 1012) 10.4 % BASOPHILS (test code = 1013) 0.8 % IMMATURE GRANULOCYTES (test 0.2 % code = 1036) NUCLEATED RBCS (test code = 0.0 /100WBC'S 1065) PLATELET COUNT (test code = 233 K/UL 1015) ABSOLUTE NEUTROPHILS (test code 4.14 K/UL = 1066) ABSOLUTE LYMPHOCYTES (test code 2.80 K/UL = 1067) ABSOLUTE MONOCYTES (test code = 0.97 K/UL 1068) ABSOLUTE EOSINOPHILS (test code 0.93 K/UL = 1040) ABSOLUTE BASOPHILS (test code = 0.07 K/UL 1069) ABS IMMATURE GRANULOCYTES (test 0.02 K/UL code = 1020) ABS NUCLEATED RBCS (test code = 0.00 K/UL 23672) HEMOGLOBIN [id number] 00:00:00 Test Item Value Reference Range Interpretation Comments HEMOGLOBIN A1c (test code = 33826) 5.9 % HEMOGLOBIN [id number] 00:00:00 Test Item Value Reference Range Interpretation Comments HEMOGLOBIN A1c (test code = 98342) 5.9 % HEMOGLOBIN [id number] 00:00:00 Test Item Value Reference Range Interpretation Comments HEMOGLOBIN A1c (test code = 62179) 5.9 % LIPID [id number] 00:00:00 Test Item Value Reference Range Interpretation Comments CHOLESTEROL (test code = 2210) 130 MG/DL TRIGLYCERIDES (test code = 2232) 207 MG/DL HDL CHOLESTEROL (test code = 2220) 47 MG/DL CALC LDL CHOL (test code = 2237) 56 MG/DL RISK RATIO LDL/HDL (test code = 1.19 RATIO 2238) LIPID [id number] 00:00:00 Test Item Value Reference Range Interpretation Comments CHOLESTEROL (test code = 2210) 130 MG/DL TRIGLYCERIDES (test code = 2232) 207 MG/DL HDL CHOLESTEROL (test code = 2220) 47 MG/DL CALC LDL CHOL (test code = 2237) 56 MG/DL RISK RATIO LDL/HDL (test code = 1.19 RATIO 2238) COMPREHENSIVE METABOLIC [id number] 00:00:00 Test Item Value Reference Range Interpretation Comments GLUCOSE (test code = 2217) 114 MG/DL BUN (test code = 2208) 12 MG/DL CREATININE (test code = 2214) 0.69 MG/DL eGFR (2020 CKD-EPI) (test 105 ML/MIN/1.73 code = 70636) CALC BUN/CREAT (test code = 17 RATIO 2235) SODIUM (test code = 2231) 143 MEQ/L POTASSIUM (test code = 2228) 4.3 MEQ/L CHLORIDE (test code = 2215) 109 MEQ/L CARBON DIOXIDE (test code = 23 MEQ/L 2205) CALCIUM (test code = 2209) 9.3 MG/DL PROTEIN, TOTAL (test code = 7.1 G/DL 2228) ALBUMIN (test code = 2201) 4.8 G/DL CALC GLOBULIN (test code = 2.3 G/DL 224) CALC A/G RATIO (test code = 2.1 RATIO 2234) BILIRUBIN, TOTAL (test code = <0.2 MG/DL 2206) ALKALINE PHOSPHATASE (test 95 U/L code = 220) AST (test code = 2218) 26 U/L ALT (test code = 2219) 18 U/L COMPREHENSIVE METABOLIC [id number] 00:00:00 Test Item Value Reference Range Interpretation Comments GLUCOSE (test code = 2217) 114 MG/DL BUN (test code = 2208) 12 MG/DL CREATININE (test code = 2214) 0.69 MG/DL eGFR (2020 CKD-EPI) (test 105 ML/MIN/1.73 code = 51300) CALC BUN/CREAT (test code = 17 RATIO 2235) SODIUM (test code = 2231) 143 MEQ/L POTASSIUM (test code = 2228) 4.3 MEQ/L CHLORIDE (test code = 2215) 109 MEQ/L CARBON DIOXIDE (test code = 23 MEQ/L 2205) CALCIUM (test code = 2209) 9.3 MG/DL PROTEIN, TOTAL (test code = 7.1 G/DL 2228) ALBUMIN (test code = 2201) 4.8 G/DL CALC GLOBULIN (test code = 2.3 G/DL 224) CALC A/G RATIO (test code = 2.1 RATIO 2234) BILIRUBIN, TOTAL (test code = <0.2 MG/DL 2206) ALKALINE PHOSPHATASE (test 95 U/L code = 2204) AST (test code = 2218) 26 U/L ALT (test code = 2219) 18 U/L PSA, [id number] 01:31:10 Test Item Value Reference Range Interpretation Comments PSA, TOTAL 0.99 NG/ML See_Comment NOTE: Methodol ogy is Eulogio (test code = Jerry Electroch emiluminescence 2606) Immunoassay tra ceable to WHO reference stand juan 96/760. UNLESS OTHERWIS E INDICATED, ALL TESTING PERFORM ED ATCLINICAL PATHOLOGY [facility]. [address] [place] [id number] LABORATORY DIRE CTOR: JERAD SERRANO M.D. CLIA NUMBER [id number] [place]. [id number] [A utomated message] The sy stem which generated this result transmitted ref erence range: <=4.00. The ref erence range was not used to int erpret this result as fely l/abnormal. LIPID [id number] 00:11:50 Test Item Value Reference Range Interpretation Comments CHOLESTEROL (test 158 MG/DL <200 code = 2210) TRIGLYCERIDES (test 70 MG/DL <150 code = 2232) HDL CHOLESTEROL (test 59 MG/DL >39 code = 2220) CALC LDL CHOL (test 84 MG/DL <100 NOTE: C ALCULATED LDL code = 2237) IS BASED ON BIJAL-ROCA METHOD WHICHINCLUDES ADJUSTABLE TRIGLYCERIDE:VL DL CHOLESTEROL RAT IO.THIS FACTOR VARIES B Y MEASURED TRIGLY CERIDE AND NON-HDLCHOL ESTEROL CONCENTRATIONS WITH INCREASED CALCU LATED LDL SEENIN HIGH ER TRIGLYCERIDE OR LOWER NON-HDL SPECIME NS. FOR MOREINFORMATION , SEE CLIENT ANNOUNCE MENT AT [email or web address] [email or web address] LDL/HDL 1.42 RATIO <3.55 (test code = 2238) COMPREHENSIVE METABOLIC [id number] 00:11:50 Test Item Value Reference Range Interpretation Comments GLUCOSE (test code = 106 MG/DL 70-99 H 2216) BUN (test code = 14 MG/DL 11-22) CREATININE (test 0.75 MG/DL 0.80-1.40 L code = 2214) eGFR (2020 CKD-EPI) 103 >60 (test code = 18461) ML/MIN/1.73 CALC BUN/CREAT (test 19 RATIO 6-28 code = 2235) SODIUM (test code = 141 MEQ/L 044-590 1695) POTASSIUM (test code 4.5 MEQ/L 3.5-5.4 = 2228) CHLORIDE (test code 104 MEQ/L 95-107 = 2215) CARBON DIOXIDE (test 23 MEQ/L 19-31 code = 2206) CALCIUM (test code = 9.4 MG/DL 8.5-10.5 2208) PROTEIN, TOTAL (test 7.1 G/DL 6.1-8.3 code = 2229) ALBUMIN (test code = 4.6 G/DL 3.5-5.2 2200) CALC GLOBULIN (test 2.5 G/DL 1.9-3.7 code = 2240) CALC A/G RATIO (test 1.8 RATIO 1.0-2.6 code = 2234) BILIRUBIN, TOTAL 0.5 MG/DL See_Comment [Automated message] (test code = 2207) The syste m which generated this result transmit tiffany reference range : <=1.2. The refe rence range was not u sed to interpret th is result as normal/abnormal . ALKALINE PHOSPHATASE 83 U/L 40-123 (test code = 2204) AST (test code = 18 U/L 9-50 2217) ALT (test code = 11 U/L 5-50 2218) LIPID [id number] 00:00:00 Test Item Value Reference Range Interpretation Comments CHOLESTEROL (test code = 2210) 158 MG/DL TRIGLYCERIDES (test code = 2232) 70 MG/DL HDL CHOLESTEROL (test code = 2220) 59 MG/DL CALC LDL CHOL (test code = 2237) 84 MG/DL RISK RATIO LDL/HDL (test code = 1.42 RATIO 2238) LIPID [id number] 00:00:00 Test Item Value Reference Range Interpretation Comments CHOLESTEROL (test code = 2210) 158 MG/DL TRIGLYCERIDES (test code = 2232) 70 MG/DL HDL CHOLESTEROL (test code = 2220) 59 MG/DL CALC LDL CHOL (test code = 2237) 84 MG/DL RISK RATIO LDL/HDL (test code = 1.42 RATIO 2238) COMPREHENSIVE METABOLIC [id number] 00:00:00 Test Item Value Reference Range Interpretation Comments GLUCOSE (test code = 2217) 106 MG/DL BUN (test code = 2208) 14 MG/DL CREATININE (test code = 2214) 0.75 MG/DL eGFR (2020 CKD-EPI) (test 103 ML/MIN/1.73 code = 74149) CALC BUN/CREAT (test code = 19 RATIO 2235) SODIUM (test code = 2231) 141 MEQ/L POTASSIUM (test code = 2228) 4.5 MEQ/L CHLORIDE (test code = 2215) 104 MEQ/L CARBON DIOXIDE (test code = 23 MEQ/L 220) CALCIUM (test code = 2209) 9.4 MG/DL PROTEIN, TOTAL (test code = 7.1 G/DL 2228) ALBUMIN (test code = 2201) 4.6 G/DL CALC GLOBULIN (test code = 2.5 G/DL 2240) CALC A/G RATIO (test code = 1.8 RATIO 2234) BILIRUBIN, TOTAL (test code = 0.5 MG/DL 2206) ALKALINE PHOSPHATASE (test 83 U/L code = 220) AST (test code = 2218) 18 U/L ALT (test code = 2219) 11 U/L COMPREHENSIVE METABOLIC [id number] 00:00:00 Test Item Value Reference Range Interpretation Comments GLUCOSE (test code = 2217) 106 MG/DL BUN (test code = 2208) 14 MG/DL CREATININE (test code = 2214) 0.75 MG/DL eGFR (2020 CKD-EPI) (test 103 ML/MIN/1.73 code = 82755) CALC BUN/CREAT (test code = 19 RATIO 2235) SODIUM (test code = 2231) 141 MEQ/L POTASSIUM (test code = 2228) 4.5 MEQ/L CHLORIDE (test code = 2215) 104 MEQ/L CARBON DIOXIDE (test code = 23 MEQ/L 2206) CALCIUM (test code = 2209) 9.4 MG/DL PROTEIN, TOTAL (test code = 7.1 G/DL 2228) ALBUMIN (test code = 2201) 4.6 G/DL CALC GLOBULIN (test code = 2.5 G/DL 2240) CALC A/G RATIO (test code = 1.8 RATIO 2234) BILIRUBIN, TOTAL (test code = 0.5 MG/DL 2206) ALKALINE PHOSPHATASE (test 83 U/L code = 2204) AST (test code = 2218) 18 U/L ALT (test code = 2219) 11 U/L PSA, [id number] 00:00:00 Test Item Value Reference Range Interpretation Comments PSA, TOTAL (test code = 2606) 0.99 NG/ML PSA, [id number] 00:00:00 Test Item Value Reference Range Interpretation Comments PSA, TOTAL (test code = 2606) 0.99 NG/ML PSA, [id number] 00:00:00 Test Item Value Reference Range Interpretation Comments PSA, TOTAL (test code = 2606) 0.99 NG/ML CBC W/AUTO DIFF WITH [id number] 05:34:29 Test Item Value Reference Range Interpretation Comments WBC (test code = 9.5 K/UL 3.5-11.0 1001) RBC (test code = 4.35 M/UL 4.50-6.10 L 1002) HEMOGLOBIN (test code 13.8 G/DL 13.5-17.0 = 1003) HEMATOCRIT (test code 40.1 % 40.0-51.0 = 1004) MCV (test code = 92.2 fL 80.0-99.0 1005) MCH (test code = 31.7 PG 25.0-33.0 1006) MCHC (test code = 34.4 G/DL 31.0-36.0 1007) RDW (test code = 13.4 % 11.5-15.0 1038) NEUTROPHILS (test 43.8 % code = 1008) LYMPHOCYTES (test 37.1 % code = 1010) MONOCYTES (test code 7.4 % = 1011) EOSINOPHILS (test 10.9 % code = 1012) BASOPHILS (test code 0.6 % = 1013) IMMATURE GRANULOCYTES 0.2 % (test code = 1036) NUCLEATED RBCS (test 0.0 /100 WBC'S See_Comment [Aut omated code = 1065) message] The sy stem which generated this result transmitted reference range : 0.0. The refere nce range was not u sed to interpret th is result as normal/abnormal . PLATELET COUNT (test 293 K/UL 130-400 code = 1015) ABSOLUTE NEUTROPHILS 4.14 K/UL 1.50-7.50 (test code = 1066) ABSOLUTE LYMPHOCYTES 3.51 K/UL 1.00-4.00 (test code = 1067) ABSOLUTE MONOCYTES 0.70 K/UL 0.20-1.00 (test code = 1068) ABSOLUTE EOSINOPHILS 1.03 K/UL 0.00-0.50 H (test code = 1040) ABSOLUTE BASOPHILS 0.06 K/UL 0.00-0.20 (test code = 1069) ABS IMMATURE 0.02 K/UL 0.00-0.10 GRANULOCYTES (test code = 1020) ABS NUCLEATED RBCS 0.00 K/UL 0.00-0.11 (test code = 47347) HEMOGLOBIN [id number] 04:28:13 Test Item Value Reference Range Interpretation Comments HEMOGLOBIN A1c (test code = 73952) 5.6 % 4.2-5.6 CBC W/AUTO [id number] 00:00:00 Test Item Value Reference Range Interpretation Comments WBC (test code = 1001) 9.5 K/UL RBC (test code = 1002) 4.35 M/UL HEMOGLOBIN (test code = 1003) 13.8 G/DL HEMATOCRIT (test code = 1004) 40.1 % MCV (test code = 1005) 92.2 fL MCH (test code = 1006) 31.7 PG MCHC (test code = 1007) 34.4 G/DL RDW (test code = 1038) 13.4 % NEUTROPHILS (test code = 1008) 43.8 % LYMPHOCYTES (test code = 1010) 37.1 % MONOCYTES (test code = 1011) 7.4 % EOSINOPHILS (test code = 1012) 10.9 % BASOPHILS (test code = 1013) 0.6 % IMMATURE GRANULOCYTES (test 0.2 % code = 1036) NUCLEATED RBCS (test code = 0.0 /100WBC'S 1065) PLATELET COUNT (test code = 293 K/UL 1015) ABSOLUTE NEUTROPHILS (test code 4.14 K/UL = 1066) ABSOLUTE LYMPHOCYTES (test code 3.51 K/UL = 1067) ABSOLUTE MONOCYTES (test code = 0.70 K/UL 1068) ABSOLUTE EOSINOPHILS (test code 1.03 K/UL = 1040) ABSOLUTE BASOPHILS (test code = 0.06 K/UL 1069) ABS IMMATURE GRANULOCYTES (test 0.02 K/UL code = 1020) ABS NUCLEATED RBCS (test code = 0.00 K/UL 00104) CBC W/AUTO [id number] 00:00:00 Test Item Value Reference Range Interpretation Comments WBC (test code = 1001) 9.5 K/UL RBC (test code = 1002) 4.35 M/UL HEMOGLOBIN (test code = 1003) 13.8 G/DL HEMATOCRIT (test code = 1004) 40.1 % MCV (test code = 1005) 92.2 fL MCH (test code = 1006) 31.7 PG MCHC (test code = 1007) 34.4 G/DL RDW (test code = 1038) 13.4 % NEUTROPHILS (test code = 1008) 43.8 % LYMPHOCYTES (test code = 1010) 37.1 % MONOCYTES (test code = 1011) 7.4 % EOSINOPHILS (test code = 1012) 10.9 % BASOPHILS (test code = 1013) 0.6 % IMMATURE GRANULOCYTES (test 0.2 % code = 1036) NUCLEATED RBCS (test code = 0.0 /100WBC'S 1065) PLATELET COUNT (test code = 293 K/UL 1015) ABSOLUTE NEUTROPHILS (test code 4.14 K/UL = 1066) ABSOLUTE LYMPHOCYTES (test code 3.51 K/UL = 1067) ABSOLUTE MONOCYTES (test code = 0.70 K/UL 1068) ABSOLUTE EOSINOPHILS (test code 1.03 K/UL = 1040) ABSOLUTE BASOPHILS (test code = 0.06 K/UL 1069) ABS IMMATURE GRANULOCYTES (test 0.02 K/UL code = 1020) ABS NUCLEATED RBCS (test code = 0.00 K/UL 96798) CBC W/AUTO [id number] 00:00:00 Test Item Value Reference Range Interpretation Comments WBC (test code = 1001) 9.5 K/UL RBC (test code = 1002) 4.35 M/UL HEMOGLOBIN (test code = 1003) 13.8 G/DL HEMATOCRIT (test code = 1004) 40.1 % MCV (test code = 1005) 92.2 fL MCH (test code = 1006) 31.7 PG MCHC (test code = 1007) 34.4 G/DL RDW (test code = 1038) 13.4 % NEUTROPHILS (test code = 1008) 43.8 % LYMPHOCYTES (test code = 1010) 37.1 % MONOCYTES (test code = 1011) 7.4 % EOSINOPHILS (test code = 1012) 10.9 % BASOPHILS (test code = 1013) 0.6 % IMMATURE GRANULOCYTES (test 0.2 % code = 1036) NUCLEATED RBCS (test code = 0.0 /100WBC'S 1065) PLATELET COUNT (test code = 293 K/UL 1015) ABSOLUTE NEUTROPHILS (test code 4.14 K/UL = 1066) ABSOLUTE LYMPHOCYTES (test code 3.51 K/UL = 1067) ABSOLUTE MONOCYTES (test code = 0.70 K/UL 1068) ABSOLUTE EOSINOPHILS (test code 1.03 K/UL = 1040) ABSOLUTE BASOPHILS (test code = 0.06 K/UL 1069) ABS IMMATURE GRANULOCYTES (test 0.02 K/UL code = 1020) ABS NUCLEATED RBCS (test code = 0.00 K/UL 40023) HEMOGLOBIN [id number] 00:00:00 Test Item Value Reference Range Interpretation Comments HEMOGLOBIN A1c (test code = 50302) 5.6 % HEMOGLOBIN [id number] 00:00:00 Test Item Value Reference Range Interpretation Comments HEMOGLOBIN A1c (test code = 65363) 5.6 % HEMOGLOBIN [id number] 00:00:00 Test Item Value Reference Range Interpretation Comments HEMOGLOBIN A1c (test code = 39043) 5.6 % LIPID [id number] 00:00:00 Test Item Value Reference Range Interpretation Comments CHOLESTEROL (test code = 2210) 178 MG/DL TRIGLYCERIDES (test code = 2232) 126 MG/DL HDL CHOLESTEROL (test code = 2220) 41 MG/DL CALC LDL CHOL (test code = 2237) 113 MG/DL RISK RATIO LDL/HDL (test code = 2.76 RATIO 2238) LIPID [id number] 00:00:00 Test Item Value Reference Range Interpretation Comments CHOLESTEROL (test code = 2210) 178 MG/DL TRIGLYCERIDES (test code = 2232) 126 MG/DL HDL CHOLESTEROL (test code = 2220) 41 MG/DL CALC LDL CHOL (test code = 2237) 113 MG/DL RISK RATIO LDL/HDL (test code = 2.76 RATIO 2238) CBC W/AUTO [id number] 00:00:00 Test Item Value Reference Range Interpretation Comments WBC (test code = 1001) 9.7 K/UL RBC (test code = 1002) 4.37 M/UL HEMOGLOBIN (test code = 1003) 13.8 G/DL HEMATOCRIT (test code = 1004) 40.4 % MCV (test code = 1005) 92.4 fL MCH (test code = 1006) 31.6 PG MCHC (test code = 1007) 34.2 G/DL RDW (test code = 1038) 12.6 % NEUTROPHILS (test code = 1008) 41.4 % LYMPHOCYTES (test code = 1010) 41.5 % MONOCYTES (test code = 1011) 8.0 % EOSINOPHILS (test code = 1012) 8.1 % BASOPHILS (test code = 1013) 0.8 % IMMATURE GRANULOCYTES (test 0.2 % code = 1036) NUCLEATED RBCS (test code = 0.0 /100WBC'S 1065) PLATELET COUNT (test code = 286 K/UL 1015) ABSOLUTE NEUTROPHILS (test code 4.02 K/UL = 1066) ABSOLUTE LYMPHOCYTES (test code 4.03 K/UL = 1067) ABSOLUTE MONOCYTES (test code = 0.78 K/UL 1068) ABSOLUTE EOSINOPHILS (test code 0.79 K/UL = 1040) ABSOLUTE BASOPHILS (test code = 0.08 K/UL 1069) ABS IMMATURE GRANULOCYTES (test 0.02 K/UL code = 1020) ABS NUCLEATED RBCS (test code = 0.00 K/UL 27623) CBC W/AUTO [id number] 00:00:00 Test Item Value Reference Range Interpretation Comments WBC (test code = 1001) 9.7 K/UL RBC (test code = 1002) 4.37 M/UL HEMOGLOBIN (test code = 1003) 13.8 G/DL HEMATOCRIT (test code = 1004) 40.4 % MCV (test code = 1005) 92.4 fL MCH (test code = 1006) 31.6 PG MCHC (test code = 1007) 34.2 G/DL RDW (test code = 1038) 12.6 % NEUTROPHILS (test code = 1008) 41.4 % LYMPHOCYTES (test code = 1010) 41.5 % MONOCYTES (test code = 1011) 8.0 % EOSINOPHILS (test code = 1012) 8.1 % BASOPHILS (test code = 1013) 0.8 % IMMATURE GRANULOCYTES (test 0.2 % code = 1036) NUCLEATED RBCS (test code = 0.0 /100WBC'S 1065) PLATELET COUNT (test code = 286 K/UL 1015) ABSOLUTE NEUTROPHILS (test code 4.02 K/UL = 1066) ABSOLUTE LYMPHOCYTES (test code 4.03 K/UL = 1067) ABSOLUTE MONOCYTES (test code = 0.78 K/UL 1068) ABSOLUTE EOSINOPHILS (test code 0.79 K/UL = 1040) ABSOLUTE BASOPHILS (test code = 0.08 K/UL 1069) ABS IMMATURE GRANULOCYTES (test 0.02 K/UL code = 1020) ABS NUCLEATED RBCS (test code = 0.00 K/UL 30841) CBC W/AUTO [id number] 00:00:00 Test Item Value Reference Range Interpretation Comments WBC (test code = 1001) 9.7 K/UL RBC (test code = 1002) 4.37 M/UL HEMOGLOBIN (test code = 1003) 13.8 G/DL HEMATOCRIT (test code = 1004) 40.4 % MCV (test code = 1005) 92.4 fL MCH (test code = 1006) 31.6 PG MCHC (test code = 1007) 34.2 G/DL RDW (test code = 1038) 12.6 % NEUTROPHILS (test code = 1008) 41.4 % LYMPHOCYTES (test code = 1010) 41.5 % MONOCYTES (test code = 1011) 8.0 % EOSINOPHILS (test code = 1012) 8.1 % BASOPHILS (test code = 1013) 0.8 % IMMATURE GRANULOCYTES (test 0.2 % code = 1036) NUCLEATED RBCS (test code = 0.0 /100WBC'S 1065) PLATELET COUNT (test code = 286 K/UL 1015) ABSOLUTE NEUTROPHILS (test code 4.02 K/UL = 1066) ABSOLUTE LYMPHOCYTES (test code 4.03 K/UL = 1067) ABSOLUTE MONOCYTES (test code = 0.78 K/UL 1068) ABSOLUTE EOSINOPHILS (test code 0.79 K/UL = 1040) ABSOLUTE BASOPHILS (test code = 0.08 K/UL 1069) ABS IMMATURE GRANULOCYTES (test 0.02 K/UL code = 1020) ABS NUCLEATED RBCS (test code = 0.00 K/UL 32582) CBC W/AUTO [id number] 00:00:00 Test Item Value Reference Range Interpretation Comments WBC (test code = 1001) 10.6 K/UL RBC (test code = 1002) 4.27 M/UL HEMOGLOBIN (test code = 1003) 13.3 G/DL HEMATOCRIT (test code = 1004) 39.1 % MCV (test code = 1005) 91.6 fL MCH (test code = 1006) 31.1 PG MCHC (test code = 1007) 34.0 G/DL RDW (test code = 1038) 12.7 % NEUTROPHILS (test code = 1008) 43.7 % LYMPHOCYTES (test code = 1010) 38.3 % MONOCYTES (test code = 1011) 7.3 % EOSINOPHILS (test code = 1012) 10.0 % BASOPHILS (test code = 1013) 0.7 % PLATELET COUNT (test code = 1015) 269 K/UL CBC W/AUTO [id number] 00:00:00 Test Item Value Reference Range Interpretation Comments WBC (test code = 1001) 10.6 K/UL RBC (test code = 1002) 4.27 M/UL HEMOGLOBIN (test code = 1003) 13.3 G/DL HEMATOCRIT (test code = 1004) 39.1 % MCV (test code = 1005) 91.6 fL MCH (test code = 1006) 31.1 PG MCHC (test code = 1007) 34.0 G/DL RDW (test code = 1038) 12.7 % NEUTROPHILS (test code = 1008) 43.7 % LYMPHOCYTES (test code = 1010) 38.3 % MONOCYTES (test code = 1011) 7.3 % EOSINOPHILS (test code = 1012) 10.0 % BASOPHILS (test code = 1013) 0.7 % PLATELET COUNT (test code = 1015) 269 K/UL CBC W/AUTO [id number] 00:00:00 Test Item Value Reference Range Interpretation Comments WBC (test code = 1001) 10.6 K/UL RBC (test code = 1002) 4.27 M/UL HEMOGLOBIN (test code = 1003) 13.3 G/DL HEMATOCRIT (test code = 1004) 39.1 % MCV (test code = 1005) 91.6 fL MCH (test code = 1006) 31.1 PG MCHC (test code = 1007) 34.0 G/DL RDW (test code = 1038) 12.7 % NEUTROPHILS (test code = 1008) 43.7 % LYMPHOCYTES (test code = 1010) 38.3 % MONOCYTES (test code = 1011) 7.3 % EOSINOPHILS (test code = 1012) 10.0 % BASOPHILS (test code = 1013) 0.7 % PLATELET COUNT (test code = 1015) 269 K/UL HEMOGLOBIN [id number] 00:00:00 Test Item Value Reference Range Interpretation Comments HEMOGLOBIN A1c (test code = 99746) 6.0 % HEMOGLOBIN [id number] 00:00:00 Test Item Value Reference Range Interpretation Comments HEMOGLOBIN A1c (test code = 09816) 6.0 % HEMOGLOBIN [id number] 00:00:00 Test Item Value Reference Range Interpretation Comments HEMOGLOBIN A1c (test code = 59305) 6.0 % TROPONIN T [ADDED]2020-07-02 00:00:00 Test Item Value Reference Range Interpretation Comments TROPONIN T (test code = 4017) <0.010 UG/L TROPONIN T [ADDED]2020-07-02 00:00:00 Test Item Value Reference Range Interpretation Comments TROPONIN T (test code = 4017) <0.010 UG/L TROPONIN T [ADDED]2020-06-24 00:00:00 Test Item Value Reference Range Interpretation Comments TROPONIN T (test code TEST NOT PERFORMED UG/L = 4017) TROPONIN T [ADDED]2020-06-24 00:00:00 Test Item Value Reference Range Interpretation Comments TROPONIN T (test code TEST NOT PERFORMED UG/L = 4017) CBC W/AUTO [id number] 00:00:00 Test Item Value Reference Range Interpretation Comments WBC (test code = 1001) TEST NOT PERFORMED K/UL RBC (test code = 1002) TEST NOT PERFORMED M/UL HEMOGLOBIN (test code = TEST NOT PERFORMED 1003) G/DL HEMATOCRIT (test code = TEST NOT PERFORMED % 1004) MCV (test code = 1005) TEST NOT PERFORMED fL MCH (test code = 1006) TEST NOT PERFORMED PG MCHC (test code = 1007) TEST NOT PERFORMED G/DL RDW (test code = 1038) TEST NOT PERFORMED % NEUTROPHILS (test code = TEST NOT PERFORMED % 1008) LYMPHOCYTES (test code = TEST NOT PERFORMED % 1010) MONOCYTES (test code = TEST NOT PERFORMED % 1011) EOSINOPHILS (test code = TEST NOT PERFORMED % 1012) BASOPHILS (test code = TEST NOT PERFORMED % 1013) PLATELET COUNT (test TEST NOT PERFORMED code = 1015) K/UL CBC W/AUTO [id number] 00:00:00 Test Item Value Reference Range Interpretation Comments WBC (test code = 1001) TEST NOT PERFORMED K/UL RBC (test code = 1002) TEST NOT PERFORMED M/UL HEMOGLOBIN (test code = TEST NOT PERFORMED 1003) G/DL HEMATOCRIT (test code = TEST NOT PERFORMED % 1004) MCV (test code = 1005) TEST NOT PERFORMED fL MCH (test code = 1006) TEST NOT PERFORMED PG MCHC (test code = 1007) TEST NOT PERFORMED G/DL RDW (test code = 1038) TEST NOT PERFORMED % NEUTROPHILS (test code = TEST NOT PERFORMED % 1008) LYMPHOCYTES (test code = TEST NOT PERFORMED % 1010) MONOCYTES (test code = TEST NOT PERFORMED % 1011) EOSINOPHILS (test code = TEST NOT PERFORMED % 1012) BASOPHILS (test code = TEST NOT PERFORMED % 1013) PLATELET COUNT (test TEST NOT PERFORMED code = 1015) K/UL CBC W/AUTO [id number] 00:00:00 Test Item Value Reference Range Interpretation Comments WBC (test code = 1001) TEST NOT PERFORMED K/UL RBC (test code = 1002) TEST NOT PERFORMED M/UL HEMOGLOBIN (test code = TEST NOT PERFORMED 1003) G/DL HEMATOCRIT (test code = TEST NOT PERFORMED % 1004) MCV (test code = 1005) TEST NOT PERFORMED fL MCH (test code = 1006) TEST NOT PERFORMED PG MCHC (test code = 1007) TEST NOT PERFORMED G/DL RDW (test code = 1038) TEST NOT PERFORMED % NEUTROPHILS (test code = TEST NOT PERFORMED % 1008) LYMPHOCYTES (test code = TEST NOT PERFORMED % 1010) MONOCYTES (test code = TEST NOT PERFORMED % 1011) EOSINOPHILS (test code = TEST NOT PERFORMED % 1012) BASOPHILS (test code = TEST NOT PERFORMED % 1013) PLATELET COUNT (test TEST NOT PERFORMED code = 1015) K/UL HEMOGLOBIN [id number] 00:00:00 Test Item Value Reference Range Interpretation Comments HEMOGLOBIN A1c (test TEST NOT PERFORMED % code = 41514) HEMOGLOBIN [id number] 00:00:00 Test Item Value Reference Range Interpretation Comments HEMOGLOBIN A1c (test TEST NOT PERFORMED % code = 92857) HEMOGLOBIN [id number] 00:00:00 Test Item Value Reference Range Interpretation Comments HEMOGLOBIN A1c (test TEST NOT PERFORMED % code = 74555) COMPREHENSIVE METABOLIC [id number] 00:00:00 Test Item Value Reference Range Interpretation Comments GLUCOSE (test code = 2217) 103 MG/DL BUN (test code = 2208) 13 MG/DL CREATININE (test code = 2214) 0.73 MG/DL eGFR AMER. (test code 117 ML/MIN/1.73 = 06415) eGFR NON- AMER. (test 101 ML/MIN/1.73 code = 37949) CALC BUN/CREAT (test code = 18 RATIO 2235) SODIUM (test code = 2231) 139 MEQ/L POTASSIUM (test code = 2228) 4.4 MEQ/L CHLORIDE (test code = 2215) 106 MEQ/L CARBON DIOXIDE (test code = 22 MEQ/L 2205) CALCIUM (test code = 2209) 9.1 MG/DL PROTEIN, TOTAL (test code = 7.3 G/DL 2228) ALBUMIN (test code = 2201) 4.7 G/DL CALC GLOBULIN (test code = 2.6 G/DL 2239) CALC A/G RATIO (test code = 1.8 RATIO 2234) BILIRUBIN, TOTAL (test code = 0.4 MG/DL 2206) ALKALINE PHOSPHATASE (test 79 U/L code = 2204) AST (test code = 2218) 18 U/L ALT (test code = 2219) 13 U/L COMPREHENSIVE METABOLIC [id number] 00:00:00 Test Item Value Reference Range Interpretation Comments GLUCOSE (test code = 2217) 103 MG/DL BUN (test code = 2208) 13 MG/DL CREATININE (test code = 2214) 0.73 MG/DL eGFR AMER. (test code 117 ML/MIN/1.73 = 81136) eGFR NON- AMER. (test 101 ML/MIN/1.73 code = 34147) CALC BUN/CREAT (test code = 18 RATIO 2235) SODIUM (test code = 2231) 139 MEQ/L POTASSIUM (test code = 2228) 4.4 MEQ/L CHLORIDE (test code = 2215) 106 MEQ/L CARBON DIOXIDE (test code = 22 MEQ/L 220) CALCIUM (test code = 2209) 9.1 MG/DL PROTEIN, TOTAL (test code = 7.3 G/DL 2228) ALBUMIN (test code = 2201) 4.7 G/DL CALC GLOBULIN (test code = 2.6 G/DL 2239) CALC A/G RATIO (test code = 1.8 RATIO 2233) BILIRUBIN, TOTAL (test code = 0.4 MG/DL 2206) ALKALINE PHOSPHATASE (test 79 U/L code = 2204) AST (test code = 2218) 18 U/L ALT (test code = 2219) 13 U/L LIPID [id number] 00:00:00 Test Item Value Reference Range Interpretation Comments CHOLESTEROL (test code = 2210) 186 MG/DL TRIGLYCERIDES (test code = 2232) 142 MG/DL HDL CHOLESTEROL (test code = 2220) 47 MG/DL CALC LDL CHOL (test code = 2237) 114 MG/DL RISK RATIO LDL/HDL (test code = 2.43 RATIO 2238) LIPID [id number] 00:00:00 Test Item Value Reference Range Interpretation Comments CHOLESTEROL (test code = 2210) 186 MG/DL TRIGLYCERIDES (test code = 2232) 142 MG/DL HDL CHOLESTEROL (test code = 2220) 47 MG/DL CALC LDL CHOL (test code = 2237) 114 MG/DL RISK RATIO LDL/HDL (test code = 2.43 RATIO 2238)
[2022-03-19 18:21] LABS: Absolute Lymphocytes (CBC) 3.7 K/uL (0.7-4.9); Hematocrit 39.5 % (39.6-49.0); Lymphocytes % 44.9 % (15.3-44.8); MPV 7.4 fL (7.6-11.3)
[2022-03-19 18:34] LABS: Potassium 3.8 mmol/L (3.5-5.1)
[2022-03-19 18:35] LABS: Albumin 3.9 g/dL (3.4-5.0); Bilirubin Total 0.4 mg/dL (0.2-1.0); Protein, Total 7.5 g/dL (6.4-8.2)
--- NOTE | 2022-03-19 18:42 | RAD REPORT ---
EXAM DESCRIPTION: CT - Stone Protocol - 03/19/2022 6:24 pm CLINICAL HISTORY: left flank pain COMPARISON: <Comparisons> TECHNIQUE: Axial 3 mm thick images were obtained without oral or IV contrast. The [id number]-[id number] span s the entirety of the system including uppermost abdomen and lung bases. All CT scans are performed using dose optimization technique as appropriate and may include automated exposure control or mA/KV adjustment according to patient size. FINDINGS: No hydronephrosis is present and no obstructing ureteral calculi. No suspicious renal mass es. Isodense masses and pyelonephritis are not excluded on a stone protocol CT scan. No significant a drenal finding. Urinary bladder is mostly contracted which limits assessment. Wall thickening is not suspected and no bladder calculi present. Prostate gland and seminal vesicles within range of normal. Imaged portions of the liver, spleen and pancreas show no suspicious findings on non-contrast imaging . Gallbladder is tightly contracted. No biliary tree dilatation. No stomach or small bowel abnormality. Stomach is filled with food and fluid. No wall thickening seen . Moderately large stool volume fills the right-side of the colon. No appendicitis. No mass or bulky lymphadenopathy. Fat extends into the origin of each inguinal canal. Minimal fat onl y umbilical hernia present. No free air, free fluid or inflammatory stranding. No significant bony abnormality. IMPRESSION: Noncontrast CT abdomen and pelvis imaging, as detailed above, shows no acute or emergent finding. Isodense masses and pyelonephritis are not excluded on stone protocol technique.
[2022-03-19] MEDS ORDERED: KETOROLAC 30 MG/ML INJ ONE (18:52)
[2022-03-19 19:00] LABS: Urine Blood Negative (Negative); Urine Glucose Negative (Negative); Urine Protein Negative (Negative)
[2022-03-19 19:22] LABS: Blood Morphology Comment NOT SEEN (NOT SEEN); Platelet Estimate ADEQ
--- NOTE | 2022-03-19 19:22 | EDPHYS ---
Physician Documentation [facility] Name: Dario Dey Age: 61 yrs Sex: Male : 1960 Arrival Date: 03/19/2022 Time: 17:45 Bed 14 Private MD: ED Physician Alvina Hughes HPI: 03/19 17:36 This 61 yrs old Male presents to ER via Ambulatory with complaints of Flank [facility] Pain, repeated falls. 17:36 61-year-old male with history of hypertension, hypothyroidism the presents emerged [facility] department with complaints of left-sided back pain beginning approximately a month ago. Patient states symptoms are worse with range of motion. Patient now complains of pain and weakness in his left leg. Patient has had previous episode of sciatica which was relieved after an injection years ago per . Patient denies any urinary or bowel issues. Patient also states having a right knee abscess which she is currently on antibiotics for which has improved with antibiotics. Denies fever or chills. Historical: - Allergies: 17:57 No Known Allergies; hb - Home Meds: 17:57 levothyroxine oral [Active]; lisinopril Oral [Active]; hb - PMHx: 17:57 Hypertension; Hypothyroidism; hb - Immunization history:: Adult Immunizations up to date. - Social history:: Smoking status: Patient denies any tobacco usage or history of. ROS: 17:36 Constitutional: Negative for fever, chills, and weight loss, Cardiovascular: Negative [facility] for chest pain, palpitations, and edema, Respiratory: Negative for shortness of breath, cough, wheezing, and pleuritic chest pain. 17:36 Back: Positive for pain with movement. 17:36 MS/extremity: Positive for pain. 17:36 Skin: Positive for abscess. 17:36 All other systems are negative. Exam: 17:36 Constitutional: This is a well developed, well nourished patient who is awake, alert, jmm and in no acute distress. Head/Face: atraumatic. Eyes: EOMI, no conjunctival erythema appreciated ENT: Moist Mucus Membranes Neck: Trachea midline, Supple Chest/axilla: Normal chest wall appearance and motion. Cardiovascular: Regular rate and rhythm. No edema appreciated Respiratory: Normal respirations, no respiratory distress appreciated Abdomen/GI: Non distended Back: Normal ROM 17:36 Back: muscle spasm, is appreciated in the left low back. 17:36 Skin: Small abscess noted to the right knee, no purulent drainage or surrounding erythema appreciated. 17:36 Neuro: Extensor hallucis longus intact bilaterally. 17:36 Psych: Behavior/mood is pleasant, cooperative. Vital Signs: 17:56 BP 165 / 79; Pulse 84; Resp 16; Temp 97.8; Pulse Ox 100% on R/A; Weight 77.11 kg; hb Height 5 ft. 6 in. (167.64 cm); Pain 3/10; 19:10 BP 143 / 83; Pulse 64; Resp 16; Pulse Ox 100% on R/A; jb4 17:56 Body Mass Index 27.44 (77.11 kg, 167.64 cm) hb MDM: 17:56 Patient medically screened. [facility] 19:20 Data reviewed: vital signs, nurses notes. Counseling: I had a detailed discussion with giovanni the patient and/or guardian regarding: the historical points, exam findings, and any diagnostic results supporting the discharge/admit diagnosis, radiology results, the need for outpatient follow up, to return to the emergency department if symptoms worsen or persist or if there are any questions or concerns that arise at home. ED course: Pain is alleviated in the ED. Physical exam appears consistent with muscle spasm/sciatica. I do not currently suspect cord compression or cauda equina. Patient advised to follow spine and otherwise given strict return precautions. Patient understood and agrees to plan of care.. 03/19 17:56 Order name: CBC with Diff; Complete Time: 19:25 [facility] 03/19 17:56 Order name: CMP; Complete Time: 18:35 [facility] 03/19 17:56 Order name: CT Stone Protocol; Complete Time: 18:44 [facility] 03/19 18:24 Order name: Manual Differential; Complete Time: 19:25 [facility] 03/19 19:00 Order name: Urine Dipstick-Ancillary; Complete Time: 19:04 [facility] 03/19 17:56 Order name: Saline Lock; Complete Time: 18:07 [facility] 03/19 17:58 Order name: Urine Dipstick-Ancillary (obtain specimen); Complete Time: 18:59 [facility] 03/19 19:05 Order name: Wound Care: wrap the right knee; Complete Time: 19:14 [facility] Administered Medications: 18:53 Drug: Ketorolac 30 mg Route: IVP; Site: right forearm; kc6 19:40 Follow up: Response: No adverse reaction jb4 Disposition Summary: 03/19/22 19:21 Discharge Ordered Location: Home [facility] Condition: Stable jm Diagnosis - Sciatica, left side jmm - Cutaneous abscess of the right knee [facility] Followup: [facility] - With: Private Physician - When: 2 - 3 days - Reason: Recheck today's complaints, Continuance of care, Re-evaluation by your physician Discharge Instructions: - Discharge Summary Sheet [facility] - Back Exercises jmm - Sciatica Rehab-SportsMed [facility] Forms: - Medication Reconciliation Form [facility] - Thank You Letter [facility] - Antibiotic Education [facility] - Prescription Opioid Use [facility] - Work release form jb4 Prescriptions: - Zanaflex 4 mg Oral Tablet - take 1 tablet by ORAL route every 8 hours As needed; 20 tablet; Refills: 0, [facility] Product Selection Permitted - Diclofenac Sodium 75 mg Oral Tablet Sustained Release - take 1 tablet by ORAL route 2 times per day; 30 tablet; Refills: 0, Product [facility] Selection Permitted Signatures: Dispatcher [employer] Nitin Brumfield PA PA Haylie Parisi RN RN Idania Abarca RN RN kc6 Rufino Stubbs RN jb4
--- NOTE | 2022-03-19 19:22 | ER ---
Nurse's Notes [facility] Name: Dario Dey Age: 61 yrs Sex: Male : 1960 Arrival Date: 03/19/2022 Time: 17:45 Bed 14 Private MD: Diagnosis: Sciatica, left side;Cutaneous abscess of the right knee Presentation: 03/19 17:56 Chief complaint: Left low back pain and left leg weakness x 1 month. Coronavirus hb screen: At this time, the client does not indicate any symptoms associated with coronavirus-19. Ebola Screen: No symptoms or risks identified at this time. Initial Sepsis Screen: Does the patient meet any 2 criteria? No. Patient's initial sepsis screen is negative. Does the patient have a suspected source of infection? No. Patient's initial sepsis screen is negative. Risk Assessment: Do you want to hurt yourself or someone else? Patient reports no desire to harm self or others. Onset of symptoms was January 2022. 17:56 Method Of Arrival: Ambulatory hb 17:56 Acuity: DANIEL 3 hb Historical: - Allergies: 17:57 No Known Allergies; hb - Home Meds: 17:57 levothyroxine oral [Active]; lisinopril Oral [Active]; hb - PMHx: 17:57 Hypertension; Hypothyroidism; hb - Immunization history:: Adult Immunizations up to date. - Social history:: Smoking status: Patient denies any tobacco usage or history of. Screenin:12 [facility] ED Fall Risk Assessment (Adult) History of falling in the last 3 months, kc6 including since admission Yes- fall prone (multiple falls) (3 pts) Confusion or Disorientation No (0 pts) Intoxicated or Sedated No (0 pts) Impaired Gait Yes (1 pt) Mobility Assist Device Used No (0 pt) Altered Elimination No (0 pt) Score/Fall Risk Level 3 or more points = High Risk Oriented to surroundings, Maintained a safe environment, Educated pt \T\ family on fall prevention, incl call for assistance when getting out of bed, Assessed \T\ reinforced patient's understanding of fall precautions, Provided non-skid footwear, Hourly rounding (assess needs \T\ fall precautionary measures) done, Used ambulatory aids as needed (educated on \T\ assisted with), Used gait belt as appropriate Apply high fall risk patient identification: yellow non skid footwear/ fall signage, Remained w/in arm's length of patient and in sight while toileting, Offered frequent toileting (1:1 observation), Remained with patient while ambulating, Utilized family, sitter, or virtual cork tipper as indicated. Abuse screen: Denies threats or abuse. Denies injuries from another. Nutritional screening: No deficits noted. Tuberculosis screening: No symptoms or risk factors identified. Assessment: 18:13 General: Appears in no apparent distress. comfortable, Behavior is calm, cooperative, kc6 appropriate for age. Pain: Denies pain. Neuro: Fleming Agitation-Sedation Scale (RASS): 0 - Alert and Calm Level of Consciousness is awake, alert, obeys commands, Oriented to person, place, time, situation, Appropriate for age. Cardiovascular: Heart tones S1 S2 present Capillary refill < 3 seconds. Respiratory: Airway is patent Trachea midline Respiratory effort is even, unlabored, Respiratory pattern is regular, symmetrical, Breath sounds are clear bilaterally. GI: No signs and/or symptoms were reported involving the gastrointestinal system. : No signs and/or symptoms were reported regarding the genitourinary system. EENT: No signs and/or symptoms were reported regarding the EENT system. Derm: No signs and/or symptoms reported regarding the dermatologic system. Derm: Skin is intact, Skin is pink, warm \T\ dry. Musculoskeletal: Reports weakness in left leg. 19:10 Reassessment: Patient appears in no apparent distress at this time. Patient and/or jb4 family updated on plan of care and expected duration. Pain level reassessed. Patient is alert, oriented x 3, equal unlabored respirations, skin warm/dry/pink. Vital Signs: 17:56 BP 165 / 79; Pulse 84; Resp 16; Temp 97.8; Pulse Ox 100% on R/A; Weight 77.11 kg; hb Height 5 ft. 6 in. (167.64 cm); Pain 3/10; 19:10 BP 143 / 83; Pulse 64; Resp 16; Pulse Ox 100% on R/A; jb4 17:56 Body Mass Index 27.44 (77.11 kg, 167.64 cm) hb ED Course: 17:45 Patient arrived in ED. as 17:47 Nitin Whitman PA is PHCP. kay 17:47 Alvina Hughes MD is Attending Physician. [facility] 17:57 Triage completed. hb 17:58 Arm band placed on. hb 18:08 Idania Santoyo, RN is Primary Nurse. kc6 18:08 Inserted saline lock: 18 gauge in right antecubital area, using aseptic technique. kb3 Blood collected. 18:15 Patient has correct armband on for positive identification. Bed in low position. Call kc6 light in reach. Side rails up X2. Adult w/ patient. 18:26 CT Stone Protocol In Process Unspecified. EDMS 19:10 No provider procedures requiring assistance completed. IV discontinued, intact, jb4 bleeding controlled, No redness/swelling at site. Pressure dressing applied. Administered Medications: 18:53 Drug: Ketorolac 30 mg Route: IVP; Site: right forearm; kc6 19:40 Follow up: Response: No adverse reaction jb4 Medication: 18:15 VIS not applicable for this client. kc6 Outcome: 19:21 Discharge ordered by MD. [facility] 19:39 Discharged to home ambulatory. jb4 19:39 Condition: stable 19:39 Discharge instructions given to patient, family, Instructed on discharge instructions, no drinking with medication, no driving heavy equipment, medication usage, Demonstrated understanding of instructions, follow-up care, medications, Prescriptions given X 2. 19:41 Patient left the ED. jb4 Signatures: Dispatcher [employer] EDMS Nitin Whitman PA PA jmm Martinez, Amelia as Baxter, Heather, RN RN Rufino Stubbs RN RN jb4 Idania Santoyo, RN BRITTANY kc6 Peg Nogueira, BRITTANY RN kb3
[2022-03-19 20:21] VITALS: TEMP 97.8; O2SAT 100
[2022-03-19 20:22] VITALS: BP 143/83
== END 2022-03-19 19:41 | disposition home or self-care (01) ==
LOC: ER 17:41
DX: M54.32 Sciatica, left side (principal); L02.415 Cutaneous abscess of right lower limb; I10 Essential (primary) hypertension; E03.9 Hypothyroidism, unspecified
CPT/HCPCS: 36415; 74176; 76377; 80053; 81003; 85025; 96374; 99284

== ENCOUNTER 2023-03-04 17:54 | Emergency (ER) | payer SELFPAY ==
--- OUTSIDE RECORDS SUMMARY | 2023-03-04 18:00 | XMS REPORT | Continuity of Care Document ---
:1960 Author Organization [facility] t Address [address] [facility] [address] [place] [address] Care Team Providers Name Role Phone PCP, PATIENT DOES NOT HAVE A Primary Care Physician UnavailABIMAEL Lockhart Attending Clinician Unavailable KRYSTLE CRUZ Attending Clinician Unavailable JESUS ALBERTO WORRELL Attending Clinician Unavailable LJ FISCHER Attending Clinician Unavailable EUNICE ZUNIGA Attending Clinician Unavailable CLARA SAVAGE Attending Clinician Unavailable KRYSTA KOO Attending Clinician Unavailable LAW ERNST Attending Clinician Unavailable OLIVIA CAMPOVERDE Attending Clinician Unavailable ROGER PARSON Attending Clinician Unavailable MICHAELA ROBISON Attending Clinician Unavailable SARAH VEGA Attending Clinician Unavailable LAB90 Attending Clinician Unavailable Miguel Shelton MD Attending Clinician MIGUEL SHELTON Attending Clinician Unavailable CAMERON MERCADO Attending Clinician Unavailable ADAL TA Attending Clinician Unavailable Adal Ta MD Attending Clinician Doctor Unassigned, [place] Attending Clinician Unavailable Cameron Mercado MD Attending Clinician JESUS ALBERTO WORRELL Admitting Clinician Unavailable ADAL TA Admitting Clinician Unavailable Payers Payer Name Policy Type Policy Number Effective Date Expiration Date Bam DUVAL SEYBOLD - [id number] 2022 [employer] 00:00:00 [employer]ET[employer] MP CVS 9 [id number] 2022 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 00:00:00 ON 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 MEDICARE PART A [id number] 2022 \\T\\ B 00:00:00 Problems Condition Condition Condition Status Onset Resolution Last Treating Co mments Source Name Details Category Date Date Treatment Clinician Date Leg Leg Disease Active 2022-04 Univers swelling swelling 1-14 ity of 00:00: [place] 00 Medical Branch Edema of Edema of Disease Active 2022-04 Kelse y both lower both lower 0-20 Se ybold extremitie extremitie 00:00: - s s 00 Externa l 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 ic lateral ic lateral 00:00: - sclerosis) sclerosis) 00 Ex terna (multi (multi l HCC) HCC) Dysphonia Dysphonia Disease Active Maya sey 9-22 Seybold 00:00: - 00 Externa l Screening Screening Disease Active Maya sey for lung for lung 10-09 Seybol d cancer cancer 00:00: - 00 Externa l Prediabete Prediabete Disease Active Negro bourgeois s s 7-10 Seybold 00:00: - 00 Externa l Hypertensi Hypertensi Disease Active Negro bourgeois on on 09-08 Seybold 00:00: - 00 Externa l Hyperlipid Hyperlipid Disease Active Negro bourgeois emia emia 09-08 Seybold 00:00: - 00 Externa l Cervical Cervical Disease Active Kelse y spinal spinal 09-08 Seybold stenosis stenosis 00:00: - 00 Externa l Cauda Cauda Disease Active Alejandra equina equina 09-08 Seybold spinal spinal 00:00: - cord cord 00 Externa injury injury l Lumbar Lumbar Disease Active Alejandra stenosis stenosis 09-08 Seybol d 00:00: - 00 Externa l Back pain Back pain Disease Active Maya sey with with 09-08 Seybold history of history of 00:00: - spinal spinal 00 Externa surgery surgery l Allergies, Adverse Reactions, Alerts Allergy Allergy Status Severity Reaction(s) Onset Inactive Treating Comm ents Source Name Type Date Date Clinician NO KNOWN Drug Active [facility] [place] Social [facility] Social Habit Start Date Stop Date Quantity Comments Source Sexual orientation Univer [facility] Gender identity Alejandra cartwright - External History of tobacco Cigarette Smoker Alejandra Gama - use External History of Social 2023-02-13 2023-02-13 Univers ity of function 00:00:00 00:00:00 [facility] Alcohol intake 2023-01-26 2023-01-26 Ex-drinker Alejandra tabor - 00:00:00 00:00:00 (finding) External Education 2022-10-09 2022-10-09 9 Alejandra Gama - 00:00:00 00:00:00 External Tobacco Comment 2022-09-07 2022-09-07 Stopped 5-6 Alejandra foster - 00:00:00 00:00:00 months ago External Cigarettes smoked 2022-09-07 2022-09-07 Alejandra Gama - current (pack per 00:00:00 00:00:00 Externa l day) - Reported Cigarette 2022-09-07 2022-09-07 Alejandra Gama - pack-years 00:00:00 00:00:00 External Exposure to 2022-06-12 2022-06-22 Not sure [facility] SARS-CoV-2 (event) 00:00:00 08:49:00 [facility] Tobacco use and 2022-05-02 2022-05-02 Smokeless Universit y of exposure 00:00:00 00:00:00 tobacco non-user [facility] Sex Ass[birth year] At [birth year] Alejandra cartwright - 00:00:00 00:00:00 External Smoking Status Start Date Stop Date Source Ex-smoker 2022-09-07 00:00:00 2022-09-07 00:00:00 Alejandra foster - External Never smoked tobacco [facility] Medications Ordered Filled Start Stop Current Ordering Indication Dosage Frequency Signature Comments Components Source Medication Medication Date Date Medication? Clinician (SIG) Name Name furosemide 2022-04 No 40mg 40 mg, IV U nivers (LASIX) 04-15 Push, ity of injection 23:00: 23:[place] :[place] dose, On Medical Tue Branch 02/13/23 at 1700, JUDD HYDROcodone 2022-04- No 1{tbl} 1 tablet, Univers -acetaminop 04-15 Oral, ity of hen (NORCO 22:30: 22:46 ONCE, 1 Bhavesh as 5) 5-325 mg 00 :00 dose, On Medi gokul tablet 1 Tue Branch tablet 02/13/23 at 1630, JUDD hydroCHLORO 2022-04 Yes [id number] 25mg Take 1 Alejandra thiazide 25 0-23 tablet (25 Se ybold MG oral 00:00: mg total) - Tablet 00 by mouth Externa daily. l hydroCHLORO 2022-04 Yes [id number] 25mg Take 1 Alejandra thiazide 25 0-23 tablet (25 Se ybold MG oral 00:00: mg total) - Tablet 00 by mouth Externa daily. l hydroCHLORO 2022-04 Yes [id number] 25mg Take 1 Alejandra thiazide 25 0-20 tablet (25 Se ybold MG oral 00:00: mg total) - Tablet 00 by mouth Externa daily. l Sertraline 2022-04 Yes [id number] 25mg Take 1 K elsey HCl 25 MG 0-20 tablet (25 Seyb old oral Tablet 00:00: mg total) - 00 by mouth Externa daily. l Sertraline 2022-04 Yes [id number] 25mg Take 1 K elsey HCl 25 MG 0-20 tablet (25 Seyb old oral Tablet 00:00: mg total) - 00 by mouth Externa daily. l Sertraline 2022-04 Yes [id number] 25mg Take 1 K elsey HCl 25 MG 0-20 tablet (25 Seyb old oral Tablet 00:00: mg total) - 00 by mouth Externa daily. l Pantoprazol 2022-04 Yes 40mg Take 1 Precious ey e Sodium 40 0-10 tablet (40 Se ybold MG oral 00:00: mg total) - Tablet 00 by mouth Externa Delayed daily. l Response Pantoprazol 2022-04 Yes 40mg Take 1 Precious ey e Sodium 40 0-10 tablet (40 Se ybold MG oral 00:00: mg total) - Tablet 00 by mouth Externa Delayed daily. l Response Pantoprazol 2022-1 Yes 40mg Take 1 Precious ey e Sodium 40 0-10 tablet (40 Se ybold MG oral 00:00: mg total) - Tablet 00 by mouth Externa Delayed daily. l Response Riluzole 50 2022-0 Yes [id number] 1{tbl} TAKE 1 Alejandra MG oral 9-28 TABLET BY Seybold Tablet 00:00: MOUTH - 00 TWICE A Externa DAY l Riluzole 50 2022-0 Yes [id number] 1{tbl} TAKE 1 Alejandra MG oral 9-28 TABLET BY Seybold Tablet 00:00: MOUTH - 00 TWICE A Externa DAY l Riluzole 50 2022-0 Yes [id number] 1{tbl} TAKE 1 Alejandra MG oral 9-28 TABLET BY Seybold Tablet 00:00: MOUTH - 00 TWICE A Externa DAY l Riluzole 50 2022-0 Yes [id number] 50{tbl} TAKE 50 Alejandra MG oral 9-26 TABLETS BY Seybol d Tablet 00:00: MOUTH 2 - 00 TIMES Externa DAILY. l Riluzole 50 2022-0 Yes [id number] 50{tbl} TAKE 50 Alejandra MG oral 9-26 TABLETS BY Seybol d Tablet 00:00: MOUTH 2 - 00 TIMES Externa DAILY. l Riluzole 50 2022-0 2023- No [id number] 50{tbl} Take 50 Alejandra MG oral 9-26 09-26 tablets by Seybo ld Tablet 00:00: 00:00 mouth 2 - 00 :00 times Externa daily. l Pantoprazol 2022-0 Yes Alejandra e Sodium 40 9-12 Seybold MG oral 00:00: - Tablet 00 Externa Delayed l Response Benzonatate 2022-0 Yes Alejandra 100 MG oral 9-12 Seybold Capsule 00:00: - 00 Externa l FLUTICASONE 2022-0 Yes Alejandra PROPIONATE, 9-12 Seybold NASAL, 50 00:00: - MCG/ACT 00 Externa nasal l Suspension Pantoprazol 2022-0 Yes Alejandra e Sodium 40 9-12 Seybold MG oral 00:00: - Tablet 00 Externa Delayed l Response Benzonatate 3-0 Yes Alejandra 100 MG oral 9-12 Seybold Capsule 00:00: - 00 Externa l FLUTICASONE 3-0 Yes Alejandra PROPIONATE, 9-12 Seybold NASAL, 50 00:00: - MCG/ACT 00 Externa nasal l Suspension Pantoprazol 3-0 Yes Alejandra e Sodium 40 9-12 Seybold MG oral 00:00: - Tablet 00 Externa Delayed l Response Benzonatate 3-0 Yes Alejandra 100 MG oral 9-12 Seybold Capsule 00:00: - 00 Externa l FLUTICASONE 3-0 Yes Alejandra PROPIONATE, 9-12 Seybold NASAL, 50 00:00: - MCG/ACT 00 Externa nasal l Suspension Pantoprazol 3-0 Yes Alejandra e Sodium 40 9-12 Seybold MG oral 00:00: - Tablet 00 Externa Delayed l Response FLUTICASONE 2022-0 Yes Alejandra PROPIONATE, 9-12 Seybold NASAL, 50 00:00: - MCG/ACT 00 Externa nasal l Suspension Pantoprazol 2022-0 Yes Alejandra e Sodium 40 9-12 Seybold MG oral 00:00: - Tablet 00 Externa Delayed l Response FLUTICASONE 3-0 Yes Alejandra PROPIONATE, 9-12 Seybold NASAL, 50 00:00: - MCG/ACT 00 Externa nasal l Suspension FLUTICASONE 3-0 Yes Alejandra PROPIONATE, 9-12 Seybold NASAL, 50 00:00: - MCG/ACT 00 Externa nasal l Suspension FLUTICASONE 3-0 Yes Alejandra PROPIONATE, 9-12 Seybold NASAL, 50 00:00: - MCG/ACT 00 Externa nasal l Suspension FLUTICASONE 3-0 Yes Alejandra PROPIONATE, 9-12 Seybold NASAL, 50 00:00: - MCG/ACT 00 Externa nasal l Suspension Benzonatate 2022-0 2023- No Kelse y 100 MG oral 12-12 Seybold Capsule 00:00: 00:00 - 00 :00 Externa l Benzonatate 3-0 2023- No Kelse y 100 MG oral 12-12 Seybold Capsule 00:00: 00:00 - 00 :00 Externa l Baclofen 10 2022-0 Yes 1 po q HS K elsey MG oral 9 x 7 days, Seybold Tablet 00:00: then 1 po - 00 BID x 7 Externa days, then l 1 po TID. Baclofen 10 Yes 1 po q HS K elsey MG oral 12-01 x 7 days, Seybold Tablet 00:00: then 1 po - 00 BID x 7 Externa days, then l 1 po TID. Baclofen Yes 1 po q HS K elsey MG oral 9 x 7 days, Seybold Tablet 00:00: then 1 po - 00 BID x 7 Externa days, then l 1 po TID. Baclofen Yes 1 po q HS K elsey MG oral 12-01 x 7 days, Seybold Tablet 00:00: then 1 po - 00 BID x 7 Externa days, then l 1 po TID. Baclofen 2022- No 1 po q HS Alejandra MG oral 12-01 x 7 days, Seybol d Tablet 00:00: 00:00 then 1 po - 00 :00 BID x 7 Externa days, then l 1 po TID. Baclofen 10 2022- No 1 po q HS Alejandra MG oral 12-01 x 7 days, Seybol d Tablet 00:00: 00:00 then 1 po - 00 :00 BID x 7 Externa days, then l 1 po TID. Baclofen Yes 1 po q HS K elsey MG oral 11-16 x 7 days, Seybold Tablet 00:00: then 1 po - 00 BID x 7 Externa days, then l 1 po TID Baclofen 10 2022- No 1 po q HS Alejandra MG oral 11-16 x 7 days, Seybol d Tablet 00:00: 00:00 then 1 po - 00 :00 BID x 7 Externa days, then l 1 po TID Pregabalin 2022- No [id number] 75mg Take 1 Alejandra 75 MG oral 10-11-17 capsule Seybo ld Capsule 00:00: 00:00 (75 mg - 00 :00 total) by Externa mouth l daily Diclofenac 2023-0 Yes [id number] 75mg Q.5D Take 1 K elsey Sodium 75 7-10 tablet (75 Seyb old MG oral 00:00: mg total) - Tablet 00 by mouth 2 Externa Delayed times l Response daily as needed Diclofenac 2022-0 Yes [id number] 75mg Q.5D Take 1 K elsey Sodium 75 7-10 tablet (75 Seyb old MG oral 00:00: mg total) - Tablet 00 by mouth 2 Externa Delayed times l Response daily as needed Diclofenac 2022-0 Yes [id number] 75mg Q.5D Take 1 K elsey Sodium 75 7-10 tablet (75 Seyb old MG oral 00:00: mg total) - Tablet 00 by mouth 2 Externa Delayed times l Response daily as needed Diclofenac 2022-0 Yes [id number] 75mg Q.5D Take 1 K elsey Sodium 75 7-10 tablet (75 Seyb old MG oral 00:00: mg total) - Tablet 00 by mouth 2 Externa Delayed times l Response daily as needed Diclofenac 2022-0 Yes [id number] 75mg Q.5D Take 1 K elsey Sodium 75 7-10 tablet (75 Seyb old MG oral 00:00: mg total) - Tablet 00 by mouth 2 Externa Delayed times l Response daily as needed Diclofenac 2022-0 Yes [id number] 75mg Q.5D Take 1 Alejandra Sodium 75 7-10 tablet (75 Seyb old MG oral 00:00: mg total) - Tablet 00 by mouth 2 Externa Delayed times l Response daily as needed Diclofenac 2022-0 Yes [id number] 75mg Q.5D Take 1 Alejandra Sodium 75 7-10 tablet (75 Seyb old MG oral 00:00: mg total) - Tablet 00 by mouth 2 Externa Delayed times l Response daily as needed Diclofenac 2022-0 Yes [id number] 75mg Q.5D Take 1 K elsey Sodium 75 7-10 tablet (75 Seyb old MG oral 00:00: mg total) - Tablet 00 by mouth 2 Externa Delayed times l Response daily as needed Diclofenac 2022-0 202- No [id number] 75mg Q.5D Take 1 Alejandra Sodium 75 7-10 10-20 tablet (75 Sey bold MG oral 00:00: 00:00 mg total) - Tablet 00 :00 by mouth 2 Externa Delayed times l Response daily as needed Diclofenac 2022-0 2023- No [id number] 75mg Q.5D Take 1 Alejandra Sodium 75 7-10 07-10 tablet (75 Sey bold MG oral 00:00: 00:00 mg total) - Tablet 00 :00 by mouth 2 Externa Delayed times l Response daily as needed LOSARTAN 0 2022- No Take by Kelse y POTASSIUM - 06-09 mouth Seybold OR 11:17: 00:00 - 05 :00 Externa l amLODIPine- 2022-0 2022- No 1{tbl} Take 1 K elsey Atorvastati -12 06- tablet by Se ybold n 10-10 MG 11:08: 00:00 mouth - oral Tablet 49 :00 daily Externa l Losartan 2022-0 Yes [id number] 50mg Take 1 Maya sey Potassium 6-09 tablet (50 Seyb old (COZAAR) 50 00:00: mg total) - MG oral 00 by mouth Externa Tablet daily l Atorvastati 2022-0 Yes [id number] 40mg Take 1 Alejandra n Calcium 6-09 tablet (40 Seyb old 40 MG oral 00:00: mg total) - Tablet 00 by mouth Externa nightly l Amlodipine 2022-0 Yes [id number] 10mg Take 1 K elsey Besylate 6-09 tablet (10 Seybo ld (Norvasc) 00:00: mg total) - 10 MG oral 00 by mouth Exter na Tablet daily l Losartan 2022-0 Yes [id number] 50mg Take 1 Maya sey Potassium 6-09 tablet (50 Seyb old (COZAAR) 50 00:00: mg total) - MG oral 00 by mouth Externa Tablet daily l Atorvastati 2022-0 Yes [id number] 40mg Take 1 Alejandra n Calcium 6-09 tablet (40 Seyb old 40 MG oral 00:00: mg total) - Tablet 00 by mouth Externa nightly l Amlodipine 2022-0 Yes [id number] 10mg Take 1 K elsey Besylate 6-09 tablet (10 Seybo ld (Norvasc) 00:00: mg total) - 10 MG oral 00 by mouth Exter na Tablet daily l Losartan 2022-0 Yes [id number] 50mg Take 1 Maya sey Potassium 6-09 tablet (50 Seyb old (COZAAR) 50 00:00: mg total) - MG oral 00 by mouth Externa Tablet daily l Atorvastati 3-0 Yes [id number] 40mg Take 1 Alejandra n Calcium 6-09 tablet (40 Seyb old 40 MG oral 00:00: mg total) - Tablet 00 by mouth Externa nightly l Amlodipine 2023-0 Yes [id number] 10mg Take 1 K elsey Besylate 6-09 tablet (10 Seybo ld (Norvasc) 00:00: mg total) - 10 MG oral 00 by mouth Exter na Tablet daily l Losartan 3-0 Yes [id number] 50mg Take 1 Maya sey Potassium 6-09 tablet (50 Seyb old (COZAAR) 50 00:00: mg total) - MG oral 00 by mouth Externa Tablet daily l Atorvastati 3-0 Yes [id number] 40mg Take 1 Alejandra n Calcium 6-09 tablet (40 Seyb old 40 MG oral 00:00: mg total) - Tablet 00 by mouth Externa nightly l Amlodipine 3-0 Yes [id number] 10mg Take 1 K elsey Besylate 6-09 tablet (10 Seybo ld (Norvasc) 00:00: mg total) - 10 MG oral 00 by mouth Exter na Tablet daily l Losartan 3-0 Yes [id number] 50mg Take 1 Maya sey Potassium 6-09 tablet (50 Seyb old (COZAAR) 50 00:00: mg total) - MG oral 00 by mouth Externa Tablet daily l Atorvastati 3-0 Yes [id number] 40mg Take 1 Alejandra n Calcium 6-09 tablet (40 Seyb old 40 MG oral 00:00: mg total) - Tablet 00 by mouth Externa nightly l Amlodipine 3-0 Yes [id number] 10mg Take 1 K elsey Besylate 6-09 tablet (10 Seybo ld (Norvasc) 00:00: mg total) - 10 MG oral 00 by mouth Exter na Tablet daily l Losartan 3-0 Yes [id number] 50mg Take 1 Maya sey Potassium 6-09 tablet (50 Seyb old (COZAAR) 50 00:00: mg total) - MG oral 00 by mouth Externa Tablet daily l Atorvastati 3-0 Yes [id number] 40mg Take 1 Alejandra n Calcium 6-09 tablet (40 Seyb old 40 MG oral 00:00: mg total) - Tablet 00 by mouth Externa nightly l Amlodipine 2023-0 Yes [id number] 10mg Take 1 K elsey Besylate 6-09 tablet (10 Seybo ld (Norvasc) 00:00: mg total) - 10 MG oral 00 by mouth Exter na Tablet daily l Losartan 3-0 Yes [id number] 50mg Take 1 Maya sey Potassium 6-09 tablet (50 Seyb old (COZAAR) 50 00:00: mg total) - MG oral 00 by mouth Externa Tablet daily l Atorvastati 3-0 Yes [id number] 40mg Take 1 Alejandra n Calcium 6-09 tablet (40 Seyb old 40 MG oral 00:00: mg total) - Tablet 00 by mouth Externa nightly l Amlodipine 3-0 Yes [id number] 10mg Take 1 K elsey Besylate 6-09 tablet (10 Seybo ld (Norvasc) 00:00: mg total) - 10 MG oral 00 by mouth Exter na Tablet daily l Losartan 3-0 Yes [id number] 50mg Take 1 Maya sey Potassium 6-09 tablet (50 Seyb old (COZAAR) 50 00:00: mg total) - MG oral 00 by mouth Externa Tablet daily l Atorvastati 3-0 Yes [id number] 40mg Take 1 Alejandra n Calcium 6-09 tablet (40 Seyb old 40 MG oral 00:00: mg total) - Tablet 00 by mouth Externa nightly l Losartan 2023-0 Yes [id number] 50mg Take 1 Maya sey Potassium 6-09 tablet (50 Seyb old (COZAAR) 50 00:00: mg total) - MG oral 00 by mouth Externa Tablet daily l Atorvastati 3-0 Yes [id number] 40mg Take 1 Alejandra n Calcium 6-09 tablet (40 Seyb old 40 MG oral 00:00: mg total) - Tablet 00 by mouth Externa nightly l Losartan 2023-0 Yes [id number] 50mg Take 1 Maya sey Potassium 6-09 tablet (50 Seyb old (COZAAR) 50 00:00: mg total) - MG oral 00 by mouth Externa Tablet daily l Atorvastati 3-0 Yes [id number] 40mg Take 1 Alejandra n Calcium 6-09 tablet (40 Seyb old 40 MG oral 00:00: mg total) - Tablet 00 by mouth Externa nightly l Losartan 3-0 Yes [id number] 50mg Take 1 Maya sey Potassium 6-09 tablet (50 Seyb old (COZAAR) 50 00:00: mg total) - MG oral 00 by mouth Externa Tablet daily l Atorvastati 2022-0 Yes [id number] 40mg Take 1 Alejandra n Calcium 6-09 tablet (40 Seyb old 40 MG oral 00:00: mg total) - Tablet 00 by mouth Externa nightly l Amlodipine 2022-0 Yes [id number] 10mg Take 1 K elsey Besylate 6-09 tablet (10 Seybo ld (Norvas) 00:00: mg total) - 10 MG oral 00 by mouth Exter na Tablet daily l Losartan 2022-0 Yes [id number] 50mg Take 1 Maya sey Potassium 6-09 tablet (50 Seyb old (COZAAR) 50 00:00: mg total) - MG oral 00 by mouth Externa Tablet daily l Atorvastati 2022-0 Yes [id number] 40mg Take 1 Alejandra n Calcium 6-09 tablet (40 Seyb old 40 MG oral 00:00: mg total) - Tablet 00 by mouth Externa nightly l Amlodipine 3-0 Yes [id number] 10mg Take 1 K elsey Besylate 6-09 tablet (10 Seybo ld (Norvasc) 00:00: mg total) - 10 MG oral 00 by mouth Exter na Tablet daily l Amlodipine 3-0 2023- No [id number] 10mg Take 1 Alejandra Besylate 6-09 10-20 tablet (10 Seyb old (Norvasc) 00:00: 00:00 mg total) - 10 MG oral 00 :00 by mouth Exter na Tablet daily l Atorvastati 3-0 2023- No 40mg Take 1 Maya sey n Calcium 5-26 06-09 tablet (40 Sey bold 40 MG oral 00:00: 00:00 mg total) - Tablet 00 :00 by mouth Externa nightly l Pregabalin 2023-0 Yes 75mg Take 1 Kelse y 75 MG oral 5-15 capsule Seybol d Capsule 00:00: (75 mg - 00 total) by Externa mouth l daily Pregabalin 3-0 Yes 75mg Take 1 Kelse y 75 MG oral 5-15 capsule Seybol d Capsule 00:00: (75 mg - 00 total) by Externa mouth l daily gabapentin 2023-0 Yes [id number] 300mg Take 1 Univers 300 mg 1-31 capsule by ity of capsule 00:00: mouth in [place] 00 the Medical morning Branch and 1 capsule at noon and 1 capsule in the evening. methylPREDN 2023-0 Yes [id number] Take by Univers ISolone 4 1-31 mouth ity of mg tablets 00:00: [place] CT[place]. Medical follow Branch package directions meloxicam 2023-0 Yes [id number] 15mg Take 1 U nivers (MOBIC) 15 1-31 tablet by ity of mg tablet 00:00: mouth in [facility] 00 the Medical morning. Branch methocarbam 2023-0 Yes [id number] 750mg Take 1 Univers oL 750 mg 1-31 tablet by ity o f tablet 00:00: mouth in [place] [address] the Medical morning Branch and 1 tablet in the evening. gabapentin 2023-0 Yes [id number] 300mg Take 1 Univers 300 mg 1-31 capsule by ity of capsule 00:00: mouth in [place] the Medical morning Branch and 1 capsule at noon and 1 capsule in the evening. methylPREDN 2023-0 Yes [id number] Take by Univers ISolone 4 -31 mouth ity of mg tablets 00:00: [place] CTIONS. Medical follow Branch package directions meloxicam 2023-0 Yes [id number] 15mg Take 1 U nivers (MOBIC) 15 1-31 tablet by ity of mg tablet 00:00: mouth in [facility] 00 the Medical morning. Branch methocarbam 2023-0 Yes [id number] 750mg Take 1 Univers oL 750 mg 1-31 tablet by ity o f tablet 00:00: mouth in [place] [address] the Medical morning Branch and 1 tablet in the evening. gabapentin 2023-0 Yes [id number] 300mg Take 1 Univers 300 mg 1-31 capsule by ity of capsule 00:00: mouth in [place] [address] the Medical morning Branch and 1 capsule at noon and 1 capsule in the evening. methylPREDN 2023-0 Yes [id number] Take by Univers ISolone 4 1-31 mouth ity of mg tablets 00:00: [place] CTIONS. Medical follow Branch package directions meloxicam 2023-0 Yes [id number] 15mg Take 1 U nivers (MOBIC) 15 1-31 tablet by ity of mg tablet 00:[place]: [place] the Medical morning. Branch methocarbam 2023-0 Yes [id number] 750mg Take 1 Univers oL 750 mg 1-31 tablet by ity o f tablet 00:00: mouth in [place] 00 the Medical morning Branch and 1 tablet in the evening. gabapentin 2023-0 Yes [id number] 300mg Take 1 Univers 300 mg 1-31 capsule by ity of capsule 00:00: mouth in [place] 00 the Medical morning Branch and 1 capsule at noon and 1 capsule in the evening. methylPREDN 2023-0 Yes [id number] Take by Univers ISolone 4 1-31 mouth ity of mg tablets 00:00: [place] CTIONS. Medical follow Branch package directions meloxicam 3-0 Yes [id number] 15mg Take 1 U nivers (MOBIC) 15 1-31 tablet by ity of mg tablet 00:00: [place] the Medical morning. Branch methocarbam 3-0 Yes [id number] 750mg Take 1 Univers oL 750 mg 1-31 tablet by ity o f tablet 00:00: mouth in [place] 00 the Medical morning Branch and 1 tablet in the evening. gabapentin 2023-0 Yes [id number] 300mg Take 1 Univers 300 mg 1-31 capsule by ity of capsule 00:00: mouth in [place] 00 the Medical morning Branch and 1 capsule at noon and 1 capsule in the evening. methylPREDN 2023-0 Yes [id number] Take by Univers ISolone 4 1-31 mouth ity of mg tablets 00:00: [place] CTIONS. Medical follow Branch package directions meloxicam 3-0 Yes [id number] 15mg Take 1 U nivers (MOBIC) 15 1-31 tablet by ity of mg tablet 00:00: [place] the Medical morning. Branch methocarbam 2023-0 Yes [id number] 750mg Take 1 Univers oL 750 mg 1-31 tablet by ity o f tablet 00:00: mouth in [place] 00 the Medical morning Branch and 1 tablet in the evening. gabapentin 2023-0 Yes [id number] 300mg Take 1 Univers 300 mg 1-31 capsule by ity of capsule 00:00: mouth in [place] 00 the Medical morning Branch and 1 capsule at noon and 1 capsule in the evening. methylPREDN 2023-0 Yes [id number] Take by Univers ISolone 4 1-31 mouth ity of mg tablets 00:00: [place] CTIONS. Medical follow Branch package directions meloxicam 2023-0 Yes [id number] 15mg Take 1 U nivers (MOBIC) 15 1-31 tablet by ity of mg tablet 00:00: mouth in [facility] 00 the Medical morning. Branch methocarbam 2023-0 Yes [id number] 750mg Take 1 Univers oL 750 mg 1-31 tablet by ity o f tablet 00:00: mouth in [place] the Medical morning Branch and 1 tablet in the evening. gabapentin 2023-0 Yes [id number] 300mg Take 1 Univers 300 mg 1-31 capsule by ity of capsule 00:00: mouth in [place] [address] the Medical morning Branch and 1 capsule at noon and 1 capsule in the evening. methylPREDN 2023-0 Yes [id number] Take by Univers ISolone 4 1-31 mouth ity of mg tablets 00:00: [place] CTIONS. Medical follow Branch package directions meloxicam 2023-0 Yes [id number] 15mg Take 1 U nivers (MOBIC) 15 1-31 tablet by ity of mg tablet 00:00: mouth in [facility] 00 the Medical morning. Branch methocarbam 2023-0 Yes [id number] 750mg Take 1 Univers oL 750 mg 1-31 tablet by ity o f tablet 00:00: mouth in [place] 00 the Medical morning Branch and 1 tablet in the evening. gabapentin 2023-0 Yes [id number] 300mg Take 1 Univers 300 mg 1-31 capsule by ity of capsule 00:00: mouth in [place] [address] the Medical morning Branch and 1 capsule at noon and 1 capsule in the evening. methylPREDN 2023-0 Yes [id number] Take by Univers ISolone 4 1-31 mouth ity of mg tablets 00:00: [place] CTIONS. Medical follow Branch package directions meloxicam 2023-0 Yes [id number] 15mg Take 1 [facility] nivers (MOBIC) 15 1-31 tablet by ity of mg tablet 00:[place] the Medical morning. Branch methocarbam 2023-0 Yes [id number] 750mg Take 1 [facility] oL 750 mg 1-31 tablet by ity o f tablet 00:00: mouth in [place] 00 the Medical morning Branch and 1 tablet in the evening. gabapentin 2023-0 Yes [id number] 300mg Take 1 [facility] 300 mg 1-31 capsule by ity of capsule 00:00: mouth in [place] 00 the Medical morning Branch and 1 capsule at noon and 1 capsule in the evening. methylPREDN 2023-0 Yes [id number] Take by [facility] ISolone 4 1-31 mouth ity of mg tablets 00:00: [place] CTIONS. Medical follow Branch package directions meloxicam 3-0 Yes [id number] 15mg Take 1 U nivers (MOBIC) 15 1-31 tablet by ity of mg tablet 00:00: [facility]. Branch methocarbam 3-0 Yes [id number] 750mg Take 1 [facility] oL 750 mg 1-31 tablet by ity o f tablet 00:00: mouth in [place] the Medical morning Branch and 1 tablet in the evening. gabapentin 3-0 Yes [id number] 300mg Take 1 [facility] 300 mg 1-31 capsule by ity of capsule 00:00: mouth in [place] 00 the Medical morning Branch and 1 capsule at noon and 1 capsule in the evening. methylPREDN 2023-0 Yes [id number] Take by [facility] ISolone 4 31 mouth ity of mg tablets 00:00: [place] CTIONS. Medical follow Branch package directions meloxicam 3-0 Yes [id number] 15mg Take 1 [facility] nivers (MOBIC) 15 1-31 tablet by ity of mg tablet 00:00: [place] the Medical morning. Branch methocarbam 2023-0 Yes [id number] 750mg Take 1 [facility] oL 750 mg 1-31 tablet by ity o f tablet 00:00: mouth in [place] 00 the Medical morning Branch and 1 tablet in the evening. gabapentin 2023-0 Yes [id number] 300mg Take 1 [facility] 300 mg 1-31 capsule by ity of capsule 00:00: mouth in [place] 00 the Medical morning Branch and 1 capsule at noon and 1 capsule in the evening. methylPREDN 2023-0 Yes [id number] Take by [facility] ISolone 4 1-31 mouth ity of mg tablets 00:00: [place] 00 CTIONS. Medical follow Branch package directions meloxicam 2023-0 Yes [id number] 15mg Take 1 U nivers (MOBIC) 15 1-31 tablet by ity of mg tablet 00:00: mouth in [facility] 00 the Medical morning. Branch methocarbam 2023-0 Yes [id number] 750mg Take 1 [facility] oL 750 mg 1-31 tablet by ity o f tablet 00:00: mouth in [place] 00 the Medical morning Branch and 1 tablet in the evening. gabapentin 2023-0 Yes [id number] 300mg Take 1 [facility] 300 mg 1-31 capsule by ity of capsule 00:00: mouth in [place] the Medical morning Branch and 1 capsule at noon and 1 capsule in the evening. methylPREDN 2023-0 Yes [id number] Take by [facility] ISolone 4 1-31 mouth ity of mg tablets 00:00: [place] CTIONS. Medical follow Branch package directions meloxicam 2023-0 Yes [id number] 15mg Take 1 [facility] nivers (MOBIC) 15 1-31 tablet by ity of mg tablet 00:00: mouth in [facility] 00 the Medical morning. Branch methocarbam 2023-0 Yes [id number] 750mg Take 1 [facility] oL 750 mg 1-31 tablet by ity o f tablet 00:00: mouth in [place] 00 the Medical morning Branch and 1 tablet in the evening. gabapentin 2023-0 Yes [id number] 300mg Take 1 [facility] 300 mg 1-31 capsule by ity of capsule 00:00: mouth in [place] 00 the Medical morning Branch and 1 capsule at noon and 1 capsule in the evening. methylPREDN 2023-0 Yes [id number] Take by [facility] ISolone 4 1-31 mouth ity of mg tablets 00:00: [place] CTIONS. Medical follow Branch package directions meloxicam 2023-0 Yes [id number] 15mg Take 1 U nivers (MOBIC) 15 1-31 tablet by ity of mg tablet 00:00: [place] the Medical morning. Branch methocarbam 2023-0 Yes [id number] 750mg Take 1 [facility] oL 750 mg 1-31 tablet by ity o f tablet 00:00: mouth in [place] 00 the Medical morning Branch and 1 tablet in the evening. gabapentin 2023-0 Yes [id number] 300mg Take 1 [facility] 300 mg 1-31 capsule by ity of capsule 00:00: mouth in [place] 00 the Medical morning Branch and 1 capsule at noon and 1 capsule in the evening. methylPREDN 2023-0 Yes [id number] Take by [facility] ISolone 4 1-31 mouth ity of mg tablets 00:00: [place] 00 CTIONS. Medical follow Branch package directions meloxicam 2023-0 Yes [id number] 15mg Take 1 U nivers (MOBIC) 15 1-31 tablet by ity of mg tablet 00:00: mouth in [facility] the Medical morning. Branch methocarbam 3-0 Yes [id number] 750mg Take 1 [facility] oL 750 mg 1-31 tablet by ity o f tablet 00:00: mouth in [place] the Medical morning Branch and 1 tablet in the evening. gabapentin 3-0 Yes [id number] 300mg Take 1 [facility] 300 mg 1-31 capsule by ity of capsule 00:00: mouth in [place] the Medical morning Branch and 1 capsule at noon and 1 capsule in the evening. methylPREDN 2023-0 Yes [id number] Take by [facility] ISolone 4 1-31 mouth ity of mg tablets 00:00: [place] 00 CTIONS. Medical follow Branch package directions meloxicam 2023-0 Yes [id number] 15mg Take 1 U nivers (MOBIC) 15 1-31 tablet by ity of mg tablet 00:00: [place] the Medical morning. Branch methocarbam 2023-0 Yes [id number] 750mg Take 1 [facility] oL 750 mg 1-31 tablet by ity o f tablet 00:00: mouth in [place] 00 the Medical morning Branch and 1 tablet in the evening. gabapentin 2023-0 Yes [id number] 300mg Take 1 [facility] 300 mg 1-31 capsule by ity of capsule 00:00: mouth in [place] 00 the Medical morning Branch and 1 capsule at noon and 1 capsule in the evening. methylPREDN 2023-0 Yes [id number] Take by [facility] ISolone 4 1-31 mouth ity of mg tablets 00:00: [place] CTIONS. Medical follow Branch package directions meloxicam 2023-0 Yes [id number] 15mg Take 1 [facility] nivers (MOBIC) 15 1-31 tablet by ity of mg tablet 00:00: [place] 00 the Medical morning. Branch methocarbam 2023-0 Yes [id number] 750mg Take 1 [facility] oL 750 mg 1-31 tablet by ity o f tablet 00:00: mouth in [place] 00 the Medical morning Branch and 1 tablet in the evening. gabapentin 2023-0 Yes [id number] 300mg Take 1 [facility] 300 mg 1-31 capsule by ity of capsule 00:00: mouth in [place] 00 the Medical morning Branch and 1 capsule at noon and 1 capsule in the evening. methylPREDN 2023-0 Yes [id number] Take by [facility] ISolone 4 1-31 mouth ity of mg tablets 00:00: [place] 00 CTIONS. Medical follow Branch package directions meloxicam 2023-0 Yes [id number] 15mg Take 1 U nivers (MOBIC) 15 1-31 tablet by ity of mg tablet 00:00: mouth in [facility] 00 the Medical morning. Branch methocarbam 2023-0 Yes [id number] 750mg Take 1 [facility] oL 750 mg 1-31 tablet by ity o f tablet 00:00: mouth in [place] 00 the Medical morning Branch and 1 tablet in the evening. gabapentin 2023-0 Yes [id number] 300mg Take 1 [facility] 300 mg 1-31 capsule by ity of capsule 00:00: mouth in [place] 00 the Medical morning Branch and 1 capsule at noon and 1 capsule in the evening. methylPREDN 2023-0 Yes [id number] Take by [facility] ISolone 4 1-31 mouth ity of mg tablets 00:00: [place] 00 CTIONS. Medical follow Branch package directions meloxicam 2023-0 Yes [id number] 15mg Take 1 U nivers (MOBIC) 15 1-31 tablet by ity of mg tablet 00:00: mouth in [place] the Medical morning. Branch methocarbam 3-0 Yes [id number] 750mg Take 1 [facility] oL 750 mg 1-31 tablet by ity o f tablet 00:00: mouth in [place] 00 the Medical morning Branch and 1 tablet in the evening. gabapentin 2023-0 Yes [id number] 300mg Take 1 [facility] 300 mg 1-31 capsule by ity of capsule 00:00: mouth in [place] 00 the Medical morning Branch and 1 capsule at noon and 1 capsule in the evening. methylPREDN 2023-0 Yes [id number] Take by [facility] ISolone 4 1-31 mouth ity of mg tablets 00:00: [place] CTIONS. Medical follow Branch package directions meloxicam 3-0 Yes [id number] 15mg Take 1 U nivers (MOBIC) 15 1-31 tablet by ity of mg tablet 00:00: mouth in [facility] 00 the Medical morning. Branch methocarbam 3-0 Yes [id number] 750mg Take 1 [facility] oL 750 mg 1-31 tablet by ity o f tablet 00:00: mouth in [place] the Medical morning Branch and 1 tablet in the evening. methylPREDN 2023-0 Yes [id number] Take by [facility] ISolone 4 1-31 mouth ity of mg tablets 00:00: [place] CTIONS. Medical follow Branch package directions meloxicam 3-0 Yes [id number] 15mg Take 1 U nivers (MOBIC) 15 1-31 tablet by ity of mg tablet 00:00: mouth in [facility] 00 the Medical morning. Branch methocarbam 3-0 Yes [id number] 750mg Take 1 [facility] oL 750 mg 1-31 tablet by ity o f tablet 00:00: mouth in [place] 00 the Medical morning Branch and 1 tablet in the evening. gabapentin 2023-0 Yes [id number] 300mg Take 1 [facility] 300 mg 1-31 capsule by ity of capsule 00:00: mouth in [place] 00 the Medical morning Branch and 1 capsule at noon and 1 capsule in the evening. methylPREDN 2023-0 Yes [id number] Take by [facility] ISolone 4 1-31 mouth ity of mg tablets 00:00: [place] CTIONS. Medical follow Branch package directions meloxicam 2023-0 Yes [id number] 15mg Take 1 U nivers (MOBIC) 15 1-31 tablet by ity of mg tablet 00:00: mouth in [place] [address] the Medical morning. Branch methocarbam 2023-0 Yes [id number] 750mg Take 1 [facility] oL 750 mg 1-31 tablet by ity o f tablet 00:00: mouth in [place] [address] the Medical morning Branch and 1 tablet in the evening. gabapentin 2023-0 Yes [id number] 300mg Take 1 [facility] 300 mg 1-31 capsule by ity of capsule 00:00: mouth in [place] [address] the Medical morning Branch and 1 capsule at noon and 1 capsule in the evening. methylPREDN 2023-0 Yes [id number] Take by [facility] ISolone 4 1-31 mouth ity of mg tablets 00:00: [place] 00 CTIONS. Medical follow Branch package directions meloxicam 2023-0 Yes [id number] 15mg Take 1 U nivers (MOBIC) 15 1-31 tablet by ity of mg tablet 00:00: mouth in [place] [address] the Medical morning. Branch methocarbam 3-0 Yes [id number] 750mg Take 1 [facility] oL 750 mg 1-31 tablet by ity o f tablet 00:00: mouth in [place] [address] the Medical morning Branch and 1 tablet in the evening. gabapentin 2023-0 Yes [id number] 300mg Take 1 [facility] 300 mg 1-31 capsule by ity of capsule 00:00: mouth in [place] [address] the Medical morning Branch and 1 capsule at noon and 1 capsule in the evening. TAKE 1 2021-0 No TABLET BY 8-29 MOUTH ONCE 00:00: DAILY 00 atorvastati 2-0 No 1mg n 40 mg 5-25 tablet 00:00: 00 amlodipine 2-0 No 1mg 10 mg 5-25 tablet 00:00: 00 Dose 2-0 No Unknown 5-25 00:00: 00 amlodipine 2022-0 No 1mg 10 mg 3-12 tablet 00:00: 00 Dose 2-0 No Unknown 3-12 00:00: 00 atorvastati 2-0 No 1mg n 40 mg 3-12 tablet 00:00: 00 Dose 2022-0 No Unknown 3-12 [...] 2022-0 No Unknown 3-12 00:00: 00 Dose 2021-1 No Unknown 1-18 00:00: 00 amlodipine 2020-1 No 1mg 10 mg 1-18 tablet 00:00: 00 atorvastati 2020-1 No 1mg n 40 mg 1-18 tablet 00:00: 00 atorvastati 2020-0 No 1mg n 40 mg 8-12 tablet 00:00: 00 pravastatin 1-0 No 1mg 20 mg 8-11 tablet 00:00: 00 Dose 2019-0 No Unknown 7-02 00:00: 00 cetirizine 2018-0 No 1mg 5 7-02 mg-pseudoep 00:00: hedrine ER 00 120 mg tablet,exte nded release,12h r prednisone 2019-0 No 1mg 20 mg 7-02 tablet 00:00: 00 fluticasone 2019-0 No 1mcg/ac propionate 7-02 tuation 50 00:00: mcg/actuati 00 on nasal spray,suspe nsion amoxicillin 2018-0 No 1mg 500 mg 7-02 capsule 00:00: 00 amlodipine 2019-0 No 1mg 10 mg 7-02 tablet 00:00: 00 amlodipine 2019-0 No 1mg 10 mg 7-02 tablet 00:00: 00 amlodipine 2018-0 No 1mg 5 mg tablet 9-29 00:00: 00 benazepril 2018-0 No 1mg 20 mg 9-29 tablet 00:00: 00 naproxen 2016-0 No 1mg 500 mg 7-29 tablet 00:00: 00 cyclobenzap 2015-0 No 1mg rine 10 mg 7-29 tablet 00:00: 00 amoxicillin 2015-0 No 2mg 500 mg 8-02 capsule 00:00: 00 Immunizations Ordered Filled Date Status Comments Source Immunization Name Immunization Name influenza, 2021-06-11 Completed high-dose, 00:00:00 quadrivalent Pneumococcal 2021-06-11 Completed conjugate P 00:00:00 SARS-COV-2 COVID-19 2020-07-13 Completed Unive rsity of PFIZER VACCINE 00:00:00 [facility] SARS-COV-2 COVID-19 2020-07-13 Completed Unive rsity of PFIZER VACCINE 00:00:00 [facility] SARS-COV-2 COVID-19 2020-07-13 Completed Unive rsity of PFIZER VACCINE 00:00:00 [facility] SARS-COV-2 COVID-19 2020-07-13 Completed Unive rsity of PFIZER VACCINE 00:00:00 [facility] SARS-COV-2 COVID-19 2020-07-13 Completed Unive rsity of PFIZER VACCINE 00:00:00 [facility] SARS-COV-2 COVID-19 2020-07-13 Completed Unive rsity of PFIZER VACCINE 00:00:00 [facility] SARS-COV-2 COVID-19 2020-07-13 Completed Unive rsity of PFIZER VACCINE 00:00:00 [facility] SARS-COV-2 COVID-19 2020-07-13 Completed Unive rsity of PFIZER VACCINE 00:00:00 [facility] SARS-COV-2 COVID-19 2020-07-13 Completed Unive rsity of PFIZER VACCINE 00:00:00 [facility] SARS-COV-2 COVID-19 2020-07-13 Completed Unive rsity of PFIZER VACCINE 00:00:00 [facility] SARS-COV-2 COVID-19 2020-07-13 Completed Unive rsity of PFIZER VACCINE 00:00:00 [facility] SARS-COV-2 COVID-19 2020-07-13 Completed Unive rsity of PFIZER VACCINE 00:00:00 [facility] SARS-COV-2 COVID-19 2020-07-13 Completed Unive rsity of PFIZER VACCINE 00:00:00 [facility] SARS-COV-2 COVID-19 2020-07-13 Completed Unive rsity of PFIZER VACCINE 00:00:00 [facility] SARS-COV-2 COVID-19 2020-07-13 Completed Unive rsity of PFIZER VACCINE 00:00:00 [facility] Branch SARS-COV-2 COVID-19 2020-07-13 Completed Unive rsity of PFIZER VACCINE 00:00:00 [place] [facility] Branch SARS-COV-2 COVID-19 2020-07-13 Completed Unive rsity of PFIZER VACCINE 00:00:00 [facility] Branch SARS-COV-2 COVID-19 2020-07-13 Completed Unive rsity of PFIZER VACCINE 00:00:00 [facility] Branch SARS-COV-2 COVID-19 2020-07-13 Completed Unive rsity of PFIZER VACCINE 00:00:00 [facility] Branch SARS-COV-2 COVID-19 2020-07-13 Completed Unive rsity of PFIZER VACCINE 00:00:00 [facility] Branch SARS-COV-2 COVID-19 2020-07-13 Completed Unive rsity of PFIZER VACCINE 00:00:00 [facility] Branch SARS-COV-2 COVID-19 2020-06-22 Completed Unive rsity of PFIZER VACCINE 00:00:00 [facility] Branch SARS-COV-2 COVID-19 2020-06-22 Completed Unive rsity of PFIZER VACCINE 00:00:00 [facility] Branch SARS-COV-2 COVID-19 2020-06-22 Completed Unive rsity of PFIZER VACCINE 00:00:00 [facility] Branch SARS-COV-2 COVID-19 2020-06-22 Completed Unive rsity of PFIZER VACCINE 00:00:00 [facility] Branch SARS-COV-2 COVID-19 2020-06-22 Completed Unive rsity of PFIZER VACCINE 00:00:00 [facility] Branch SARS-COV-2 COVID-19 2020-06-22 Completed Unive rsity of PFIZER VACCINE 00:00:00 [facility] Branch SARS-COV-2 COVID-19 2020-06-22 Completed Unive rsity of PFIZER VACCINE 00:00:00 [facility] Branch SARS-COV-2 COVID-19 2020-06-22 Completed Unive rsity of PFIZER VACCINE 00:00:00 [facility] Branch SARS-COV-2 COVID-19 2020-06-22 Completed Unive rsity of PFIZER VACCINE 00:00:00 [facility] Branch SARS-COV-2 COVID-19 2020-06-22 Completed Unive rsity of PFIZER VACCINE 00:00:00 [facility] SARS-COV-2 COVID-19 2020-06-22 Completed Unive rsity of PFIZER VACCINE 00:00:00 [facility] SARS-COV-2 COVID-19 2020-06-22 Completed Unive rsity of PFIZER VACCINE 00:00:00 [facility] SARS-COV-2 COVID-19 2020-06-22 Completed Unive rsity of PFIZER VACCINE 00:00:00 [facility] SARS-COV-2 COVID-19 2020-06-22 Completed Unive rsity of PFIZER VACCINE 00:00:00 [facility] SARS-COV-2 COVID-19 2020-06-22 Completed Unive rsity of PFIZER VACCINE 00:00:00 [facility] SARS-COV-2 COVID-19 2020-06-22 Completed Unive rsity of PFIZER VACCINE 00:00:00 [facility] SARS-COV-2 COVID-19 2020-06-22 Completed Unive rsity of PFIZER VACCINE 00:00:00 [facility] SARS-COV-2 COVID-19 2020-06-22 Completed Unive rsity of PFIZER VACCINE 00:00:00 [facility] SARS-COV-2 COVID-19 2020-06-22 Completed Unive rsity of PFIZER VACCINE 00:00:00 [facility] SARS-COV-2 COVID-19 2020-06-22 Completed Unive rsity of PFIZER VACCINE 00:00:00 [facility] SARS-COV-2 COVID-19 2020-06-22 Completed Unive rsity of PFIZER VACCINE 00:00:00 [facility] Influenza Virus Unknown Completed Alejandra Se ybold - Vaccine, External Quadrivalent, High Dose, Age 65 And Up Pneumococcal Unknown Completed Alejandra Seybo ld - Vaccine, Conjugate [employer] 13 Influenza Virus Unknown Completed Alejandra Se ybold - Vaccine, External Quadrivalent, High Dose, Age 65 And Up Pneumococcal Unknown Completed Alejandra Seybo ld - Vaccine, Conjugate [employer] 13 Influenza Virus Unknown Completed Alejandra Se ybold - Vaccine, External Quadrivalent, High Dose, Age 65 And Up Pneumococcal Unknown Completed Alejandra Seybo ld - Vaccine, Conjugate [employer] 13 Influenza Virus Unknown Completed Alejandra Se ybold - Vaccine, External Quadrivalent, High Dose, Age 65 And Up Pneumococcal Unknown Completed Alejandra Seybo ld - Vaccine, Conjugate [employer] 13 Influenza Virus Unknown Completed Alejandra Se ybold - Vaccine, External Quadrivalent, High Dose, Age 65 And Up Pneumococcal Unknown Completed Alejandra Seybo ld - Vaccine, Conjugate [employer] 13 Influenza Virus Unknown Completed Alejandra Se ybold - Vaccine, External Quadrivalent, High Dose, Age 65 And Up Pneumococcal Unknown Completed Alejandra Seybo ld - Vaccine, Conjugate [employer] 13 Influenza Virus Unknown Completed Alejandra Se ybold - Vaccine, External Quadrivalent, High Dose, Age 65 And Up Pneumococcal Unknown Completed Alejandra Seybo ld - Vaccine, Conjugate [employer] 13 Influenza Virus Unknown Completed Alejandra Se ybold - Vaccine, External Quadrivalent, High Dose, Age 65 And Up Pneumococcal Unknown Completed Alejandra Seybo ld - Vaccine, Conjugate [employer] 13 SARS-COV-2 COVID-19 Unknown Completed Unive rsity of PFIZER VACCINE [facility] SARS-COV-2 COVID-19 Unknown Completed Unive rsity of PFIZER VACCINE [facility] Vital Signs Vital Name Observation Time Observation Value Comments Source Systolic blood 2023-02-13 22:57:00 135 [facility] Diastolic blood 2023-02-13 22:57:00 70 mm[Hg] [facility] Heart rate 2023-02-13 22:57:00 94 /min [facility] Body temperature 2023-02-13 22:57:00 36.89 [facility] Respiratory rate 2023-02-13 22:57:00 17 /min [facility] Oxygen saturation in 2023-02-13 22:57:00 97 /min [facility] Arterial blood by [facility] Pulse oximetry [place] Body height 2023-02-13 19:28:00 170.2 cm [facility] Body weight 2023-02-13 19:28:00 68.04 kg [facility] BMI 2023-02-13 19:28:00 23.49 kg/m2 [facility] Systolic blood 2023-01-19 18:09:00 112 mm[Hg] Alejandra [facility] pressure External Diastolic blood 2023-01-19 18:09:00 62 mm[Hg] Mayase y Seybold - pressure External Heart rate 2023-01-19 18:09:00 84 /min Alejandra Kuhn eybold - External Body temperature 2023-01-19 18:09:00 36.56 Albertina Precious ey Seybold - External Respiratory rate 2023-01-19 18:09:00 18 /min Precious ey Seybold - External Body height 2023-01-19 18:09:00 180.3 cm Alejandra Kuhn eybold - External Body weight 2023-01-19 18:09:00 68.04 kg Alejandra Kuhn eybold - External BMI 2023-01-19 18:09:00 20.92 kg/m2 Alejandra Kuhn eybold - External Oxygen saturation in 2023-01-19 18:09:00 96 /min Alejandra Seybold - Arterial blood by External Pulse oximetry Systolic blood 2022-12-27 16:03:00 114 mm[Hg] Alejandra Seybold - pressure External Diastolic blood 2022-12-27 16:03:00 69 mm[Hg] Mayase y Seybold - pressure External Heart rate 2022-12-27 16:03:00 86 /min Alejandra Kuhn eybold - External Body temperature 2022-12-27 16:03:00 37.22 Alberitna Precious ey Seybold - External Respiratory rate 2022-12-27 16:03:00 16 /min Precious jarrell Seybold - External Body height 2022-12-27 16:03:00 180.3 cm Alejandra Kuhn eybold - External Oxygen saturation in 2022-12-27 16:03:00 99 /min Alejandra Seybold - Arterial blood by External Pulse oximetry Systolic blood 2022-12-26 13:27:00 121 mm[Hg] Alejandra Seybold - pressure External Diastolic blood 2022-12-26 13:27:00 76 mm[Hg] Mayase y Seybold - pressure External Heart rate 2022-12-26 13:27:00 91 /min Alejandra S eybold - External Body temperature 2022-12-26 13:27:00 36.67 Albertina Precious ey Seybold - External Respiratory rate 2022-12-26 13:27:00 17 /min Precious ey Seybold - External Body height 2022-12-26 13:27:00 180.3 cm Alejandra S eybold - External Body weight 2022-12-26 13:27:00 68.04 kg Alejandra S eybold - External BMI 2022-12-26 13:27:00 20.92 kg/m2 Alejandra S eybold - External Oxygen saturation in 2022-12-26 13:27:00 99 /min Alejandra Seybold - Arterial blood by External Pulse oximetry Systolic blood 2022-12-22 21:25:00 122 mm[Hg] Alejandra Seybold - pressure External Diastolic blood 2022-12-22 21:25:00 65 mm[Hg] Tamra y Seybold - pressure External Heart rate 2022-12-22 21:25:00 89 /min Alejandra S eybold - External Body temperature 2022-12-22 21:25:00 37.06 Albertina Precious ey Seybold - External Respiratory rate 2022-12-22 21:25:00 15 /min Precious ey Seybold - External Body height 2022-12-22 21:25:00 180.3 cm Alejandra S eybold - External Body weight 2022-12-22 21:25:00 68.04 kg Alejandra S eybold - External BMI 2022-12-22 21:25:00 20.92 kg/m2 Alejandra S eybold - External Oxygen saturation in 2022-12-22 21:25:00 99 /min Alejandra Lexold - Arterial blood by External Pulse oximetry Body height 2022-12-01 14:32:00 180.3 cm Alejandra S eybold - External Body weight 2022-12-01 14:32:00 68.04 kg Alejandra S eybold - External BMI 2022-12-01 14:32:00 20.92 kg/m2 Alejandra S eybold - External Body height 2022-11-16 14:47:00 177.8 cm Alejandra S eybold - External Body weight 2022-11-16 14:47:00 68.493 kg Alejandra S eybold - External BMI 2022-11-16 14:47:00 21.67 kg/m2 Alejandra S eybold - External Systolic blood 2022-10-09 15:21:00 124 mm[Hg] Alejandra Seybold - pressure External Diastolic blood 2022-10-09 15:21:00 64 mm[Hg] Mayase y Seybold - pressure External Heart rate 2022-10-09 15:21:00 91 /min Alejandra Kuhn eybold - External Body temperature 2022-10-09 15:21:00 36 Albertina Precious ey Seybold - External Respiratory rate 2022-10-09 15:21:00 20 /min Precious ey Seybold - External Body height 2022-10-09 15:21:00 170.2 cm Alejandra Kuhn eybold - External Body weight 2022-10-09 15:21:00 70.308 kg Alejandra Kuhn eybold - External BMI 2022-10-09 15:21:00 24.28 kg/m2 Alejandra Kuhn eybold - External Oxygen saturation in 2022-10-09 15:21:00 100 /min Alejandra Lexkelly - Arterial blood by External Pulse oximetry Systolic blood 2022-09-08 15:53:00 152 mm[Hg] Alejandra Seybold - pressure External Diastolic blood 2022-09-08 15:53:00 84 mm[Hg] Tamra y Seybold - pressure External Heart rate 2022-09-08 15:53:00 87 /min Alejandra Kuhn eybold - External Body temperature 2022-09-08 15:53:00 36.61 Albertina Precious ey Seybold - External Respiratory rate 2022-09-08 15:53:00 15 /min Precious jarrell Seybold - External Body height 2022-09-08 15:53:00 170.2 cm Alejandra Kuhn eybold - External Body weight 2022-09-08 15:53:00 68.04 kg Alejandra Kuhn eybold - External BMI 2022-09-08 15:53:00 23.49 kg/m2 Alejandra Kuhn eybold - External Oxygen saturation in 2022-09-08 15:53:00 99 /min Alejandra Krugerybold - Arterial blood by External Pulse oximetry Systolic blood 2022-06-28 20:00:00 122 mm[Hg] [facility] of [facility] [facility] Diastolic blood 2022-06-28 20:00:00 88 mm[Hg] [facility] Heart rate 2022-06-28 20:00:00 69 /min [facility] Respiratory rate 2022-06-28 20:00:00 20 /min [facility] Oxygen saturation in 2022-06-28 20:00:00 100 /min [facility] Arterial blood by [facility] Pulse oximetry Branch Body temperature 2022-06-28 16:57:00 36.5 Albertina [facility] Body weight 2022-06-28 16:57:00 68.493 kg [facility] BMI 2022-06-28 16:57:00 23.65 kg/m2 [facility] Systolic blood 2022-06-22 14:08:00 131 mm[Hg] [facility] Diastolic blood 2022-06-22 14:08:00 83 mm[Hg] [facility] Heart rate 2022-06-22 14:08:00 74 /min [facility] Body temperature 2022-06-22 14:08:00 36.11 Albertina [facility] Body height 2022-06-22 14:08:00 170.2 cm [facility] Body weight 2022-06-22 14:08:00 68.493 kg [facility] BMI 2022-06-22 14:08:00 23.65 kg/m2 [facility] Systolic blood 2022-06-22 14:08:00 131 mm[Hg] [facility] Diastolic blood 2022-06-22 14:08:00 83 mm[Hg] [facility] Heart rate 2022-06-22 14:08:00 74 /min [facility] Body temperature 2022-06-22 14:08:00 36.11 Albertina [facility] Body height 2022-06-22 14:08:00 170.2 cm [facility] Body weight 2022-06-22 14:08:00 68.493 kg [facility] BMI 2022-06-22 14:08:00 23.65 kg/m2 [facility] Systolic blood 2022-06-22 14:08:00 131 mm[Hg] [facility] Diastolic blood 2022-06-22 14:08:00 83 mm[Hg] [facility] Heart rate 2022-06-22 14:08:00 74 /min [facility] Body temperature 2022-06-22 14:08:00 36.11 Albertina [facility] Body height 2022-06-22 14:08:00 170.2 cm [facility] Body weight 2022-06-22 14:08:00 68.493 kg [facility] BMI 2022-06-22 14:08:00 23.65 kg/m2 [facility] Systolic blood 2022-06-22 14:08:00 131 mm[Hg] [facility] Diastolic blood 2022-06-22 14:08:00 83 mm[Hg] [facility] Heart rate 2022-06-22 14:08:00 74 /min [facility] Body temperature 2022-06-22 14:08:00 36.11 Albertina [facility] Body height 2022-06-22 14:08:00 170.2 cm [facility] Body weight 2022-06-22 14:08:00 68.493 kg [facility] BMI 2022-06-22 14:08:00 23.65 kg/m2 [facility] Systolic blood 2022-05-02 19:59:00 121 mm[Hg] [facility] Diastolic blood 2022-05-02 19:59:00 68 mm[Hg] [facility] Heart rate 2022-05-02 19:59:00 71 /min [facility] Body temperature 2022-05-02 19:59:00 35.78 Albertina [facility] Body weight 2022-05-02 19:59:00 68.901 kg [facility] BP Systolic 2022-03-11 13:36:00 126 mm[Hg] BP [...] Respiratory Rate 2015-10-29 08:43:00 17.00 /min Procedures Procedure Date / Time Performed Performing Clinician [facility] e ASSIGNMENT OF BENEFITS 2023-02-13 22:23:31 Doctor Unassigned, No [facility] Name [facility] AC PANEL 21 + LACTIC 2023-02-13 21:58:00 Jesus Alberto Worrell [facility] ACID [facility] TROPONIN I 2023-02-13 21:57:00 Jesus Alberto [facility] HEPATIC FUNCTION PANEL 2023-02-13 21:57:00 Jesus Alberto Worrell [facility] ([id number]) [facility] (ALB,T.PRO,BILI T,BU/BC,ALT,AST,ALK PHOS) BASIC METABOLIC PANEL 2023-02-13 21:57:00 Jesus Alberto Worrell [facility] (NA, K, CL, CO2, Medical Branch GLUCOSE, BUN, CREATININE, CA) CBC WITH DIFF 2023-02-13 21:57:00 Jesus Alberto [facility] N-TERMINAL PRO-BNP 2023-02-13 21:57:00 Jesus Alberto Worrell [facility] XR CHEST 1 VW 2023-02-13 20:47:32 Jesus Alberto [facility] CONSENT/REFUSAL FOR 2023-02-13 19:23:45 Doctor Unassigned, No [facility] [place] DI[facility] AND Name Medical Branch TREATMENT CERVICAL SPINE - 2 2022-11-16 16:22:30 Krystle Cruz Se ybold - VIEW External XR CHEST 2 VW 2022-06-28 18:26:23 Keyon Adal [facility] XR NECK SOFT TISSUE 2022-06-28 18:26:23 [facility]al [facility] TROPONIN I 2022-06-28 18:10:00 Keyon Adal [facility] COMP. METABOLIC PANEL 2022-06-28 18:10:[address] [facility] ([id number]) Medical Branch CBC WITH DIFF 2022-06-28 18:10:00 Keyon Adal [facility] N-TERMINAL PRO-BNP 2022-06-28 18:10:00 Adal Ta [facility] COVID-19 (ID NOW RAPID 2022-06-28 18:10:00 Adal Ta [facility] TESTING) Medical Branch NOTICE OF PRIVACY 2022-06-28 16:56:56 Doctor Unassigned, No [facility] CONSENT/REFUSAL FOR 2022-06-28 16:52:21 Doctor Unassigned, No [facility] [place] DI[facility]IS AND Name Medical Branch TREATMENT CONSENT/REFUSAL FOR 2022-06-22 13:51:24 Doctor Unassigned, No [facility] [place] DIAGNOSIS AND Name Medical Branch TREATMENT EXTERNAL PROVIDER 2022-05-31 06:01:00 Doctor Unassigned, No Univ ersity [facility] RECORDS Name Medical Branch Plan of Care Planned Activity Planned Date Details Comments Source Goal Plan of Care Note [code = 97581-2] Goal Plan of Care Note [code = 11243-7] Goal Plan of Care Note [code = 46267-7] Goal Plan of Care Note [code = 05487-0] Goal Plan of Care Note [code = 56236-8] Goal Plan of Care Note [code = 97235-8] Goal Plan of Care Note [code = 78206-9] Goal Plan of Care Note [code = 57177-1] Goal Plan of Care Note [code = 94091-5] Goal Plan of Care Note [code = 86513-6] Goal Plan of Care Note [code = 11429-9] Goal Plan of Care Note [code = 27250-3] Goal Plan of Care Note [code = 26691-3] Goal Plan of Care Note [code = 47653-3] Goal Plan of Care Note [code = 73002-8] Goal Plan of Care Note [code = 69381-7] Goal Plan of Care Note [code = 17046-4] Goal Plan of Care Note [code = 31804-4] Goal Plan of Care Note [code = 61124-1] Goal Plan of Care Note [code = 93713-5] Goal Plan of Care Note [code = 05736-7] Encounters Start End Encounter Admission Attending Care Care Encounter Source Date/Time Date/Time Type Type Clinicians Facility Department ID 2022-10-19 Outpatient [facility] [id number] [place] 13:45:24 [id number] 2023-05-11 2023-05-11 Outpatient TANIA [facility] [id number] [place] 10:00:00 10:00:00 [facility] 2023-04-25 2023-04-25 Outpatient KRYSTLE CRUZ [id number] Alejandra 13:15:00 13:15:00 Seybol d 2023-02-13 2023-02-13 Emergency X STILGENBAUE [facility] ERT [id number] Univers 13:33:00 17:12:00 JESUS ALBERTO Fuentes o f [facility] 2023-02-13 2023-02-13 Emergency Stilgenbaue [facility] 1.2.840.114 [id number] Univers 13:33:00 17:12:00 [facility] 350.1.13.10 kita hancock [place] 4.2.7.2.686 [facility] [phone] [address] 2023-02-13 2023-02-13 Outpatient ALEJANDRA FISCHER [id number] Alejandra 10:00:00 10:00:00 LJ Lexol d 2023-02-12 2023-02-12 Outpatient ALEJANDRA ZUNIGA [id number] Alejandra 00:00:00 00:00:00 EUNICE Seybol d 2023-02-10 2023-02-10 Outpatient PREZAS, ALEJANDRA DUVAL [id number] Alejandra 00:00:00 00:00:00 EUNICE Seybol d 2023-02-05 2023-02-05 Outpatient PREZASALEJANDRA [id number] Alejandra 11:15:00 11:15:00 EUNICE Seybol d 2023-01-29 2023-01-29 Outpatient ALEJANDRA SAVAGE [id number] Alejandra 00:00:00 00:00:00 CLARA Seybol d 2023-01-26 2023-01-26 Outpatient KRYSTA KOO [id number] Alejandra 09:00:00 09:00:00 Seybol d 2023-01-26 2023-01-26 Outpatient ALEJANDRA ERNST [id number] Alejandra 08:00:00 08:00:00 LAW Seybol d 2023-01-26 2023-01-26 Outpatient PREZAS, ALEJANDRA DUVAL [id number] Alejandra 00:00:00 00:00:00 EUNICE Seybol d 2023-01-24 2023-01-24 Outpatient ALEJANDRA ERNST [id number] Alejandra 13:15:00 13:15:00 LAW Seybol d 2023-01-24 2023-01-24 Outpatient PREZAALEJANDRA Kuhn [id number] Alejandra 00:00:00 00:00:00 EUNICE Seybol d 2023-01-22 2023-01-22 Outpatient PREZASALEJANDRA [id number] Alejandra 00:00:00 00:00:00 EUNICE Seybol d 2023-01-22 2023-01-22 Outpatient PREZASALEJANDRA [id number] Alejandra 00:00:00 00:00:00 EUNICE Seybol d 2023-01-19 2023-01-19 Outpatient PREZASALEJANDRA [id number] Alejandra 13:15:00 13:15:00 EUNICE Seybol d 2023-01-18 2023-01-18 Outpatient KRYSTA KOO ALEJANDRA [id number] Alejandra 13:00:00 13:00:00 Seybol d 2023-01-18 2023-01-18 Outpatient ALEAJNDRA ZUNIGA [id number] Alejandra 00:00:00 00:00:00 EUNICE Seybol d 2023-01-10 2023-01-10 Outpatient ALEJANDRA SAVAGE [id number] Alejandra 13:30:00 13:30:00 CLARA Seybol d 2023-01-09 2023-01-09 Outpatient ALEJANDRA ZUNIGA [id number] Alejandra 10:45:00 10:45:00 EUNICE Seybol d 2023-01-09 2023-01-09 Outpatient ALEJANDRA SAVAGE [id number] Alejandra 00:00:00 00:00:00 CLARA Seybol d 2023-01-05 2023-01-05 Outpatient OLIVIA CAMPOVERDE [id number] Alejandra 00:00:00 00:00:00 Seybol d 2023-01-04 2023-01-04 Outpatient OLIVIA CAMPOVERDE [id number] Alejandra 00:00:00 00:00:00 Seybol d 2023-01-04 2023-01-04 Outpatient OLIVIA CAMPOVERDE [id number] Alejandra 00:00:00 00:00:00 Seybol d 2023-01-03 2023-01-03 Outpatient ALEJANDRA SAVAGE [id number] Alejandra 14:00:00 14:00:00 CLARA Seybol d 2023-01-02 2023-01-02 Outpatient ALEJANDRA ZUNIGA [id number] Alejandra 13:30:00 13:30:00 EUNICE Seybol d 2023-01-02 2023-01-02 Outpatient ALEJANDRA SAVAGE [id number] Alejandra 10:00:00 10:00:00 CLARA Seybol d 2023-01-02 2023-01-02 Outpatient ALEJANDRA PARSON [id number] Alejandra 10:00:00 10:00:00 ROGER Seybo ld 2023-01-02 2023-01-02 Outpatient OLIVIA CAMPOVERDE ALEJANDRA DUVAL [id number] Alejandra 00:00:00 00:00:00 Seybol d 2023-01-02 2023-01-02 Outpatient KRYSTA KOO ALEJANDRA DUVAL [id number] Alejandra 00:00:00 00:00:00 Seybol d 2023-01-01 2023-01-01 Outpatient ALEJANDRA ZUNIGA [id number] Alejandra 00:00:00 00:00:00 EUNICE Seybol d 2022-12-28 2022-12-28 Outpatient ALEJANDRA SAVAGE [id number] Alejandra 00:00:00 00:00:00 CLAAR Seybol d 2022-12-28 2022-12-28 Outpatient GILLESERICEBENEZER DUVAL [id number] Alejandra 00:00:00 00:00:00 Seybol d 2022-12-27 2022-12-27 Outpatient ALEJANDRA SAVAGE [id number] Alejandra 10:30:00 10:30:00 CLARA Seybol d 2022-12-27 2022-12-27 Outpatient ERIC CAMPOVERDEEBENEZER DUVAL [id number] Alejandra 09:00:00 09:00:00 Seybol d 2022-12-27 2022-12-27 Outpatient OLIVIA CAMPOVERDE ALEJANDRA DUVAL [id number] Alejandra 00:00:00 00:00:00 Seybol d 2022-12-27 2022-12-27 Outpatient GILLES OLIVIA DUVAL [id number] Alejandra 00:00:00 00:00:00 Seybol d 2022-12-26 2022-12-26 Outpatient ALEJANDRA ROBISON [id number] Alejandra 15:00:00 15:00:00 MICHAELA Seybol d 2022-12-26 2022-12-26 Outpatient ALEJANDRA SAVAGE [id number] Alejandra 08:15:00 08:15:00 CLARA Seybol d 2022-12-26 2022-12-26 Outpatient ALEJANDRA SAVAGE [id number] Alejandra 00:00:00 00:00:00 CLARA Seybol d 2022-12-22 2022-12-22 Outpatient PREZAS ALEJANDRA DUVAL [id number] Alejandra 16:45:00 16:45:00 EUNICE Seybol d 2022-12-18 2022-12-18 Outpatient PREZAS, ALEJADNRA DUVAL [id number] Alejandra 00:00:00 00:00:00 EUNICE Seybol d 2022-12-15 2022-12-15 Outpatient PREZAS, ALEJANDRA DUVAL [id number] Alejandra 00:00:00 00:00:00 EUNICE Seybol d 2022-12-15 2022-12-15 Outpatient PREZAS, ALEJANDRA DUVAL [id number] Alejandra 00:00:00 00:00:00 EUNICE Seybol d 2022-12-14 2022-12-14 Outpatient SAVAGEALEJANDRA MEDINA [id number] Alejandra 10:30:00 10:30:00 CLARA Seybol d 2022-12-13 2022-12-13 Outpatient ALEJANDRA SAVAGE [id number] Alejandra 00:00:00 00:00:00 CLARA Seybol d 2022-12-11 2022-12-11 Outpatient PREZAS, ALEJANDRA DUVAL [id number] Alejandra 00:00:00 00:00:00 EUNICE Seybol d 2022-12-11 2022-12-11 Outpatient PREZASALEJANDRA [id number] Alejandra 00:00:00 00:00:00 EUNICE Seybol d 2022-12-11 2022-12-11 Outpatient PREZASALEJANDRA [id number] Alejandra 00:00:00 00:00:00 EUNICE Seybol d 2022-12-01 2022-12-01 Outpatient KRYSTLE CRUZ [id number] Alejandra 08:30:00 08:30:00 Seybol d 2022-11-28 2022-11-28 Outpatient ALEJANDRA DUVAL [id number] Alejandra 13:00:00 13:00:00 Seybol d 2022-11-24 2022-11-24 Outpatient ALEJANDRA DUVAL [id number] Alejandra 11:45:00 11:45:00 Seybol d 2022-11-24 2022-11-24 Outpatient SARAH VEGA ALEJANDRA ALEJANDRA [id number] Alejandra 10:15:00 10:15:00 Seybol d 2022-11-24 2022-11-24 Outpatient EFRAIN ALEJANDRA DUVAL [id number] Alejandra 00:00:00 00:00:00 EUNICE Seybol d 2022-11-22 2022-11-22 Outpatient ALEJANDRA DUVAL [id number] Alejandra 11:00:00 11:00:00 Seybol d 2022-11-17 2022-11-17 Outpatient ALEJANDRA DUVAL [id number] Alejandra 11:00:00 11:00:00 Seybol d 2022-11-16 2022-11-16 Outpatient ALEJANDRA DUVAL [id number] Alejandra 13:05:00 13:05:00 Seybol d 2022-11-16 2022-11-16 Outpatient ALEJANDRA DUVAL [id number] Alejandra 13:00:00 13:00:00 Seybol d 2022-11-16 2022-11-16 Outpatient ALEJANDRA DUVAL [id number] Alejandra 10:50:00 10:50:00 Seybol d 2022-11-16 2022-11-16 Outpatient KRYSTLE CRUZ ALEJANDRA DUVAL [id number] Alejandra 09:30:00 09:30:00 Seybol d 2022-11-07 2022-11-07 Outpatient PREALEJANDRA LIN [id number] Alejandra 00:00:00 00:00:00 EUNICE Seybol d 2022-10-10 2022-10-10 Outpatient PREZAALEJANDRA Kuhn [id number] Alejandra 00:00:00 00:00:00 EUNICE Seybol d 2022-10-10 2022-10-10 Outpatient PREZAALEJANDRA uKhn [id number] Alejandra 00:00:00 00:00:00 EUNICE Seybol d 2022-10-09 2022-10-09 Outpatient LAB90 ALEJANDRA DUVAL [id number] Alejandra 11:30:00 11:30:00 Seybol d 2022-10-09 2022-10-09 Outpatient ALEJANDRA ZUNIGA [id number] Alejandra 10:45:00 10:45:00 EUNICE Seybol d 2022-10-06 2022-10-06 Outpatient PREZAS, ALEJANDRA DUVAL [id number] Alejandra 00:00:00 00:00:00 EUNICE Seybol d 2022-10-02 2022-10-02 Outpatient PREZAS, ALEJANDRA DUVAL [id number] Alejandra 15:45:00 15:45:00 EUNICE Seybol d 2022-09-28 2022-09-28 Outpatient PREZAS, ALEJANDRA DUVAL [id number] Alejandra 00:00:00 00:00:00 EUNICE Seybol d 2022-09-12 2022-09-12 Outpatient PREZAS, ALEJANDRA DUVAL [id number] Alejandra 00:00:00 00:00:00 EUNICE Seybol d 2022-09-12 2022-09-12 Outpatient PREZAS, ALEJANDRA DUVAL [id number] Alejandra 00:00:00 00:00:00 EUNICE Seybol d 2022-09-12 2022-09-12 Outpatient PREZAS, ALEJANDRA DUVAL [id number] Alejandra 00:00:00 00:00:00 EUNICE Seybol d 2022-09-11 2022-09-11 Outpatient PREZAS, ALEJANDRA DUVAL [id number] Alejandra 00:00:00 00:00:00 EUNICE Seybol d 2022-09-11 2022-09-11 Outpatient PREZAS, ALEJANDRA DUVAL [id number] Alejandra 00:00:00 00:00:00 EUNICE Seybol d 2022-09-08 2022-09-08 Outpatient LAB90 ALEJANDRA DUVAL [id number] Alejandra 11:30:00 11:30:00 Seybol d 2022-09-08 2022-09-08 Outpatient PREZAS, ALEJANDRA DUVAL [id number] Alejandra 10:30:00 10:30:00 EUNICE Seybol d 2022-08-25 2022-08-25 Outpatient [facility] [id number] Howie 17:29:35 17:29:35 0526 F Jose 2022-07-17 2022-07-17 Telephone [facility] 1.2.840.114 [id number] Univers 00:00:00 00:00:00 , Miguel SPECIALTY 350.1.13.10 ity of CARE 4.2.7.2.686 [facility] AT [id number] Ny malik BELTRAN [address] [place] [address] 2022-07-13 2022-07-13 Outpatient R [facility] [id number] Univers 09:30:00 09:30:00 , MIGUEL ity of [facility] 2022-06-29 2022-06-29 Telephone [facility] 1.2.840.114 [id number] Univers 00:00:00 00:00:00 , Miguel SPECIALTY 350.1.13.10 ity of CARE 4.2.7.2.[address] [place] [address] AT [id number] Ny malik [address] 2022-06-28 2022-06-28 Emergency X [facility] ERT [id number] Univers 11:58:00 15:57:00 ADAL itcyndie [facility] 2022-06-28 2022-06-28 [facility] 1.2.996.090 [id number] Univers 11:58:00 15:57:00 Adal SR 350.1.13.10 i ty [facility] 4.2.7.2.686 [facility] [id number] [place] [address] [place] 2022-06-28 2022-06-28 Emergency X [facility] ERT [id number] Univers 11:58:00 15:57:00 ADAL ity [facility] 2022-06-27 2022-06-27 Telephone [facility] 1.2.840.114 [id number] Univers 00:00:00 00:00:00 , Miguel SPECIALTY 350.1.13.10 ity of CARE 4.2.7.2.[address] [place] [address] AT [id number] Ny malik BELTRAN [address] [place] [address] 2022-06-22 2022-06-22 Outpatient R [facility] [id number] Univers 08:45:00 10:25:40 , MIGUEL ity of [facility] 2022-06-22 2022-06-22 [facility] 1.2.840.114 [id number] Univers 08:45:00 10:25:40 Visit , Miguel SPECIALTY 350.1.13.10 [place]2.[place] [facility] [id number] Ny malik BELTRAN [address] [place] [address] 2022-06-22 2022-06-22 [facility] [id number] Univers 08:45:00 10:25:40 , MIGUEL ity of [facility] 2022-06-22 2022-06-22 Office [facility] 1.2.840.114 [id number] Univers 08:45:00 10:25:40 Visit , Miguel SPECIALTY 350.1.13.10 ity [place] [id number] Ny anupabraham [address] 2022-06-22 2022-06-22 Orders Doctor MOMIN 1.2.840.114 [id number] Univers 00:00:00 00:00:00 Only Unassigned, PARISH 350.1.13.10 ity of [facility] 4.2.7.2.686 Bhavesh as [id number] [address] 2022-06-06 2022-06-06 Telephone [facility] 1.2.840.114 [id number] Univers 00:00:00 00:00:00 Cameron SPECIALTY 350.1.13.10 ity of [facility] [place]2.7.2.[place] [id number] Ny anupabraahm BELTRAN [address] [place] [address] 2022-05-31 2022-05-31 Orders Doctor MERRILL 1.2.840.114 [id number] Univers 00:00:00 00:00:00 Only Unassigned, PARISH 350.1.13.10 ity of [facility] 4.2.7.2.686 Bhavesh as [phone] [address] 2022-05-30 2022-05-30 Telephone [facility] 1.2.840.114 [id number] Univers 00:00:00 00:00:00 Cameron SPECIALTY 350.1.13.10 ity of [place] [facility] [place] [facility] [phone] Ny malik BELTRAN [address] [facility] 2022-05-26 2022-05-26 Outpatient [facility] [id number] Howie 15:49:01 15:49:01 0224 F Jose 2022-05-25 2022-05-25 Telephone [facility] 1.2.840.114 [id number] Univers 00:00:00 00:00:00 Cameron SPECIALTY 350.1.13.10 ity of [place] [facility] [facility] [id number] Ny malik [facility] 2022-05-22 2022-05-22 Telephone [facility] 1.2.840.114 [id number] Univers 00:00:00 00:00:00 Cameron SPECIALTY 350.1.13.10 ity of [place] [facility] 4[place].2.[place] [facility] [id number] Ny malik BELTRAN [address] [place] [address] 2022-05-22 2022-05-22 Telephone [facility] 1.2.840.114 [id number] Univers 00:00:00 00:00:00 Cameron SPECIALTY 350.1.13.10 ity of [place] [facility] [facility] [id number] Ny malik BELTRAN [address] [place] [address] 2022-05-05 2022-05-05 Outpatient Alfredo MERCADO [facility] [id number] Univers 00:00:00 00:00:00 CAMERON ity [facility] 2022-05-05 2022-05-05 Outpatient Alfredo MERCADO [facility] [id number] Univers 00:00:00 00:00:00 CAMERON ity [facility] 2022-05-05 2022-05-05 [facility] 1.2.840.114 [id number] Univers 00:00:00 00:00:00 Cameron SPECIALTY 350.1.13.10 ity of [place] [id number] Me dical VICTORY 198 [facility] 2022-05-02 2022-05-02 [facility] 1.2.780.412 [id number] Univers 14:07:28 23:59:00 Encounter [place] SPECIALTY 350.1.13.10 ity of [place] [id number] Me dical VICTORY 809 [facility] 2022-05-02 2022-05-02 [facility] 1.2.967.395 [id number] Univers 14:07:13 23:59:00 Encounter [place] SPECIALTY 350.1.13.10 ity of [place] [id number] Me dical VICTORY 809 [facility] 2022-05-02 2022-05-02 Office [facility] 1.2.840.114 [id number] [facility] 13:50:00 15:25:31 Visit [place] SPECIALTY 350.1.13.10 ity of [place] [id number] Ny dical VICTORY 198 [facility] 2022-05-02 2022-05-02 Outpatient [facility] [id number] Univers 14:07:07 14:06:00 CAMERON ity of [facility] 2022-05-02 2022-05-02 [facility] 1.2.908.626 [id number] Univers 14:05:00 14:06:00 Encounter [place] SPECIALTY 350.1.13.10 ity of [place] [id number] Me dical VICTORY 809 [facility] 2022-03-11 2022-03-11 Outpatient [facility] [id number] Howie 13:26:46 13:26:46 1210 Jovani Garcia 2022-03-11 2022-03-11 Outpatient [id number] 00:00:00 00:00:00 Visit [id number] 2022-02-20 2022-02-20 Outpatient [facility] [id number] 022 Howie 14:10:30 14:10:30 1121 F Jose 2022-01-27 2022-01-27 Outpatient [facility] [id number] 022 Howie 14:24:08 14:24:08 1028 F Jose 2022-01-25 2022-01-25 Outpatient [facility] [id number] 022 Howie 16:04:52 16:04:52 1026 F Jose Results Test Description Test Time Test Comments Results Result Comments Source AC PANEL 21 + LACTIC ACID 2023-02-13 22:09:01 Test Item Value Reference Range Interpretation Comme nts PH (test code = 7808607318) 7.40 7.32-7.42 PCO2 ENIO (test code = 41 See_Comment [Auto mated message] The [id number]) system which ge nerated this result transmit tiffany reference range: 41 - 51 mmHg. The reference range was not used to interpret th is result as normal/abnormal . PO2 ENIO (test code = 40 See_Comment [Autom ated message] The [id number]) system which ge nerated this result transmit tiffany reference range: 25 - 40 mmHg. The reference range was not used to interpret th is result as normal/abnormal . HCO3 ENIO (test code = 25 See_Comment [Auto mated message] The [id number]) system which ge nerated this result transmit tiffany reference range: 24 - 28 mEq/L. The reference range was not used to interpret th is result as normal/abnormal . AC VBE(BEAKER) (test code = 0.1 mEq/L 4389836931) THB ENIO (test code = 12.0 g/dL 13.5-18.0 L 7945358606) %O2HB ENIO (test code = 71.0 % 52.0-63.0 H 1823068224) %COHB ENIO (test code = 3.6 % 0.0-1.5 H 3492795075) %METHB ENIO (test code = 0.0 % 0.4-1.5 L 6616225860) VOL%O2 ENIO (test code = 12.0 % 6.0-12.0 6494848493) NA (test code = 8777577908) 139 mmol/L 135-145 K+ (test code = 7587793383) 4.0 mmol/L 3.5-5.0 AC CA IONZ (test code = 4.80 mg/dL 4.50-5.30 6700371053) GLUCOSE (test code = 97 mg/dL 70-110 2743348048) LACTIC ACID (test code = 1.72 mmol/L 0.50-2.20 5436860639) Lab Interpretation (test code = Abnormal 61529-2) [facility] [id number] 00:00:00 Test Item Value Reference Range Interpretation [...] NUCLEATED RBCS (test code = 0.00 K/UL 93118) CBC W/AUTO [id number] 00:00:00 Test Item Value Reference Range Interpretation [...] NUCLEATED RBCS (test code = 0.00 K/UL 34782) CBC W/AUTO [id number] 00:00:00 Test Item Value Reference Range Interpretation [...] NUCLEATED RBCS (test code = 0.00 K/UL 35858) HEMOGLOBIN [id number] 00:00:00 Test Item Value Reference Range Interpretation Comments HEMOGLOBIN A1c (test code = 07030) 5.9 % HEMOGLOBIN [id number] 00:00:00 Test Item Value Reference Range Interpretation Comments HEMOGLOBIN A1c (test code = 61728) 5.9 % HEMOGLOBIN [id number] 00:00:00 Test Item Value Reference Range Interpretation Comments HEMOGLOBIN A1c (test code = 39549) 5.9 % LIPID [id number] 00:00:00 Test Item Value Reference Range Interpretation Comments CHOLESTEROL (test code = 2210) 130 MG/DL TRIGLYCERIDES (test code = 2232) 207 MG/DL HDL CHOLESTEROL (test code = 2220) 47 MG/DL CALC LDL CHOL (test code = 2237) 56 MG/DL RISK RATIO LDL/HDL (test code = 1.19 RATIO 2238) LIPID [id number] 00:00:00 Test Item Value Reference Range Interpretation Comments CHOLESTEROL (test code = 2210) 130 MG/DL TRIGLYCERIDES (test code = 2232) 207 MG/DL HDL CHOLESTEROL (test code = 2220) 47 MG/DL CALC LDL CHOL (test code = 2237) 56 MG/DL RISK RATIO LDL/HDL (test code = 1.19 RATIO 2238) COMPREHENSIVE METABOLIC [id number] 00:00:00 Test Item Value Reference Range Interpretation Comments GLUCOSE (test code = 2217) 114 MG/DL BUN (test code = 2208) 12 MG/DL CREATININE (test code = 2214) 0.69 MG/DL eGFR (2020 CKD-EPI) (test 105 ML/MIN/1.73 code = 96762) CALC BUN/CREAT (test code = 17 RATIO 2235) SODIUM (test code = 2231) 143 MEQ/L POTASSIUM (test code = 2228) 4.3 MEQ/L CHLORIDE (test code = 2215) 109 MEQ/L CARBON DIOXIDE (test code = 23 MEQ/L 220) CALCIUM (test code = 2209) 9.3 MG/DL PROTEIN, TOTAL (test code = 7.1 G/DL 2228) ALBUMIN (test code = 2201) 4.8 G/DL CALC GLOBULIN (test code = 2.3 G/DL 2240) CALC A/G RATIO (test code = 2.1 RATIO 2234) BILIRUBIN, TOTAL (test code = <0.2 MG/DL 2206) ALKALINE PHOSPHATASE (test 95 U/L code = 2204) AST (test code = 2218) 26 U/L ALT (test code = 2219) 18 U/L COMPREHENSIVE METABOLIC [id number] 00:00:00 Test Item Value Reference Range Interpretation Comments GLUCOSE (test code = 2217) 114 MG/DL BUN (test code = 2208) 12 MG/DL CREATININE (test code = 2214) 0.69 MG/DL eGFR (2020 CKD-EPI) (test 105 ML/MIN/1.73 code = 34634) CALC BUN/CREAT (test code = 17 RATIO [...] CALC GLOBULIN (test code = 2.3 G/DL 2240) CALC A/G RATIO (test code = 2.1 RATIO 2234) BILIRUBIN, TOTAL (test code = <0.2 MG/DL 2206) ALKALINE PHOSPHATASE (test 95 U/L code = 2204) AST (test code = 2218) 26 U/L ALT (test code = 2219) 18 U/L PSA, [id number] 01:31:10 Test Item Value Reference Range Interpretation Comments PSA, TOTAL 0.99 NG/ML See_Comment NOTE: Methodol ogy is Eulogio (test code = Jerry Electroch emiluminescence 2606) Immunoassay tra ceable to WHO reference stand juan 96/760. UNLESS OTHERWIS E INDICATED, ALL TESTING PERFORM ED ATCLINICAL PATHOLOGY [facility]. [address] [place] [address] LABORATORY DIRE CTOR: JERAD SERRANO M.D. CLIA NUMBER [id number] [place]. [id number] [A utomated message] The sy stem which generated this result transmitted ref erence range: <=4.00. The ref erence range was not used to int erpret this result as fely l/abnormal. LIPID [id number] 00:11:50 Test Item Value Reference Range Interpretation [...] MOREINFORMATION , SEE CLIENT ANNOUNCE MENT AT [email or web address] RISK RATIO LDL/HDL 1.42 RATIO <3.55 (test code = 2238) COMPREHENSIVE METABOLIC [id number] 00:11:50 Test Item Value Reference Range Interpretation Comments GLUCOSE (test code = 106 MG/DL 70-99 H 2216) BUN (test code = 14 MG/DL 8-23 2207) CREATININE (test 0.75 MG/DL 0.80-1.40 L code = 2214) eGFR (2020 CKD-EPI) 103 >60 (test code = 96871) ML/MIN/1.73 CALC BUN/CREAT (test 19 RATIO 6-28 code = 2235) SODIUM (test code = 141 MEQ/L 903-111 8080) POTASSIUM (test code 4.5 MEQ/L 3.5-5.4 = 2227) CHLORIDE (test code 104 MEQ/L 95-107 = 2214) CARBON DIOXIDE (test 23 MEQ/L 19-31 code [...] code = 11 U/L 5-50 2218) LIPID [id number] 00:00:00 Test Item Value Reference Range Interpretation Comments CHOLESTEROL (test code = 2210) 158 MG/DL TRIGLYCERIDES (test code = 2232) 70 MG/DL HDL CHOLESTEROL (test code = 2220) 59 MG/DL CALC LDL CHOL (test code = 2237) 84 MG/DL RISK RATIO LDL/HDL (test code = 1.42 RATIO 2238) LIPID [id number] 00:00:00 Test Item Value Reference Range Interpretation Comments CHOLESTEROL (test code = 2210) 158 MG/DL TRIGLYCERIDES (test code = 2232) 70 MG/DL HDL CHOLESTEROL (test code = 2220) 59 MG/DL CALC LDL CHOL (test code = 2237) 84 MG/DL RISK RATIO LDL/HDL (test code = 1.42 RATIO 2238) COMPREHENSIVE METABOLIC [id number] 00:00:00 Test Item Value Reference Range Interpretation Comments GLUCOSE (test code = 2217) 106 MG/DL BUN (test code = 2208) 14 MG/DL CREATININE (test code = 2214) 0.75 MG/DL eGFR (2020 CKD-EPI) (test 103 ML/MIN/1.73 code = 28649) CALC BUN/CREAT (test code = 19 RATIO [...] code = 2219) 11 U/L COMPREHENSIVE METABOLIC [id number] 00:00:00 Test Item Value Reference Range Interpretation Comments GLUCOSE (test code = 2217) 106 MG/DL BUN (test code = 2208) 14 MG/DL CREATININE (test code = 2214) 0.75 MG/DL eGFR (2020 CKD-EPI) (test 103 ML/MIN/1.73 code = 03094) CALC BUN/CREAT (test code = 19 RATIO 2235) SODIUM (test code = 2231) 141 MEQ/L POTASSIUM (test code = 2228) 4.5 MEQ/L CHLORIDE (test code = 2215) 104 MEQ/L CARBON DIOXIDE (test code = 23 MEQ/L 2205) CALCIUM (test code = 2209) 9.4 MG/DL [...] (test code = 2219) 11 U/L PSA, [id number] 00:00:00 Test Item Value Reference Range Interpretation Comments PSA, TOTAL (test code = 2606) 0.99 NG/ML PSA, [id number] 00:00:00 Test Item Value Reference Range Interpretation Comments PSA, TOTAL (test code = 2606) 0.99 NG/ML PSA, [id number] 00:00:00 Test Item Value Reference Range Interpretation Comments PSA, TOTAL (test code = 2606) 0.99 NG/ML CBC W/AUTO DIFF WITH [id number] 05:34:29 Test Item Value Reference Range Interpretation [...] RBCS 0.00 K/UL 0.00-0.11 (test code = 23008) HEMOGLOBIN [id number] 04:28:13 Test Item Value Reference Range Interpretation Comments HEMOGLOBIN A1c (test code = 27097) 5.6 % 4.2-5.6 CBC W/AUTO [id number] 00:00:00 Test Item Value Reference Range Interpretation [...] NUCLEATED RBCS (test code = 0.00 K/UL 68258) CBC W/AUTO [id number] 00:00:00 Test Item Value Reference Range Interpretation [...] NUCLEATED RBCS (test code = 0.00 K/UL 71362) CBC W/AUTO [id number] 00:00:00 Test Item Value Reference Range Interpretation [...] NUCLEATED RBCS (test code = 0.00 K/UL 09594) HEMOGLOBIN [id number] 00:00:00 Test Item Value Reference Range Interpretation Comments HEMOGLOBIN A1c (test code = 35019) 5.6 % HEMOGLOBIN [id number] 00:00:00 Test Item Value Reference Range Interpretation Comments HEMOGLOBIN A1c (test code = 45350) 5.6 % HEMOGLOBIN [id number] 00:00:00 Test Item Value Reference Range Interpretation Comments HEMOGLOBIN A1c (test code = 73168) 5.6 % LIPID [id number] 00:00:00 Test Item Value Reference Range Interpretation Comments CHOLESTEROL (test code = 2210) 178 MG/DL TRIGLYCERIDES (test code = 2232) 126 MG/DL HDL CHOLESTEROL (test code = 2220) 41 MG/DL CALC LDL CHOL (test code = 2237) 113 MG/DL RISK RATIO LDL/HDL (test code = 2.76 RATIO 2238) LIPID [id number] 00:00:00 Test Item Value Reference Range Interpretation Comments CHOLESTEROL (test code = 2210) 178 MG/DL TRIGLYCERIDES (test code = 2232) 126 MG/DL HDL CHOLESTEROL (test code = 2220) 41 MG/DL CALC LDL CHOL (test code = 2237) 113 MG/DL RISK RATIO LDL/HDL (test code = 2.76 RATIO 2238) CBC W/AUTO [id number] 00:00:00 Test Item Value Reference Range Interpretation [...] NUCLEATED RBCS (test code = 0.00 K/UL 01247) CBC W/AUTO [id number] 00:00:00 Test Item Value Reference Range Interpretation [...] NUCLEATED RBCS (test code = 0.00 K/UL 49390) CBC W/AUTO [id number] 00:00:00 Test Item Value Reference Range Interpretation [...] NUCLEATED RBCS (test code = 0.00 K/UL 44473) CBC W/AUTO [id number] 00:00:00 Test Item Value Reference Range Interpretation [...] code = 1015) 269 K/UL CBC W/AUTO [id number] 00:00:00 Test Item Value Reference Range Interpretation [...] code = 1015) 269 K/UL CBC W/AUTO [id number] 00:00:00 Test Item Value Reference Range Interpretation [...] (test code = 1015) 269 K/UL HEMOGLOBIN [id number] 00:00:00 Test Item Value Reference Range Interpretation Comments HEMOGLOBIN A1c (test code = 09294) 6.0 % HEMOGLOBIN [id number] 00:00:00 Test Item Value Reference Range Interpretation Comments HEMOGLOBIN A1c (test code = 46702) 6.0 % HEMOGLOBIN [id number] 00:00:00 Test Item Value Reference Range Interpretation Comments HEMOGLOBIN A1c (test code = 58062) 6.0 % TROPONIN T [ADDED]2020-07-02 00:00:00 Test [...] NOT PERFORMED UG/L = 4017) CBC W/AUTO [id number] 00:00:00 Test Item Value Reference Range Interpretation [...] PERFORMED code = 1015) K/UL CBC W/AUTO [id number] 00:00:00 Test Item Value Reference Range Interpretation [...] PERFORMED code = 1015) K/UL CBC W/AUTO [id number] 00:00:00 Test Item Value Reference Range Interpretation [...] NOT PERFORMED code = 1015) K/UL HEMOGLOBIN [id number] 00:00:00 Test Item Value Reference Range Interpretation Comments HEMOGLOBIN A1c (test TEST NOT PERFORMED % code = 51972) HEMOGLOBIN [id number] 00:00:00 Test Item Value Reference Range Interpretation Comments HEMOGLOBIN A1c (test TEST NOT PERFORMED % code = 05003) HEMOGLOBIN [id number] 00:00:00 Test Item Value Reference Range Interpretation Comments HEMOGLOBIN A1c (test TEST NOT PERFORMED % code = 54310) COMPREHENSIVE METABOLIC [id number] 00:00:00 Test Item Value Reference Range Interpretation Comments GLUCOSE (test code = 2217) 103 MG/DL BUN (test code = 2208) 13 MG/DL CREATININE (test code = 2214) 0.73 MG/DL eGFR AMER. (test code 117 ML/MIN/1.73 = 73595) eGFR NON- AMER. (test 101 ML/MIN/1.73 code = 44078) CALC BUN/CREAT (test code = 18 RATIO 2235) SODIUM (test code = 2231) 139 MEQ/L POTASSIUM (test code = 2228) 4.4 MEQ/L CHLORIDE (test code = 2215) 106 MEQ/L CARBON DIOXIDE (test code = 22 MEQ/L 2206) CALCIUM (test code = 2209) 9.1 MG/DL PROTEIN, TOTAL (test code = 7.3 G/DL 2228) ALBUMIN (test code = 2201) 4.7 G/DL CALC GLOBULIN (test code = 2.6 G/DL 2240) CALC A/G RATIO (test code = 1.8 RATIO 2234) BILIRUBIN, TOTAL (test code = 0.4 MG/DL 2206) ALKALINE PHOSPHATASE (test 79 U/L code = 2204) AST (test code = 2218) 18 U/L ALT (test code = 2219) 13 U/L COMPREHENSIVE METABOLIC [id number] 00:00:00 Test Item Value Reference Range Interpretation Comments GLUCOSE (test code = 2217) 103 MG/DL BUN (test code = 2208) 13 MG/DL CREATININE (test code = 2214) 0.73 MG/DL eGFR AMER. (test code 117 ML/MIN/1.73 = 55820) eGFR NON- AMER. (test 101 ML/MIN/1.73 code = 18212) CALC BUN/CREAT (test code = 18 RATIO 2235) SODIUM (test code = 2231) 139 MEQ/L POTASSIUM (test code = 2228) 4.4 MEQ/L CHLORIDE (test code = 2215) 106 MEQ/L CARBON DIOXIDE (test code = 22 MEQ/L 2206) CALCIUM (test code = 2209) 9.1 MG/DL PROTEIN, TOTAL (test code = 7.3 G/DL 2228) ALBUMIN (test code = 2201) 4.7 G/DL CALC GLOBULIN (test code = 2.6 G/DL 2240) CALC A/G RATIO (test code = 1.8 RATIO 2234) BILIRUBIN, TOTAL (test code = 0.4 MG/DL 2206) ALKALINE PHOSPHATASE (test 79 U/L code = 2204) AST (test code = 2218) 18 U/L ALT (test code = 2219) 13 U/L LIPID [id number] 00:00:00 Test Item Value Reference Range Interpretation Comments CHOLESTEROL (test code = 2210) 186 MG/DL TRIGLYCERIDES (test code = 2232) 142 MG/DL HDL CHOLESTEROL (test code = 2220) 47 MG/DL CALC LDL CHOL (test code = 2237) 114 MG/DL RISK RATIO LDL/HDL (test code = 2.43 RATIO 2238) LIPID [id number] 00:00:00 Test Item Value Reference Range Interpretation Comments CHOLESTEROL (test code = 2210) 186 MG/DL TRIGLYCERIDES (test code = 2232) 142 MG/DL HDL CHOLESTEROL (test code = 2220) 47 MG/DL CALC LDL CHOL (test code = 2237) 114 MG/DL RISK RATIO LDL/HDL (test code = 2.43 RATIO 2238) History and Physical Notes Date/Time Note Provider Source 2022-11-30 07:54:31 [id number]:54:31Formatting of this [facility] note is different from the Clini c original.HPI: Patient arrives in manual wheelchair with assistance of . is main historian.Dario Dey presents, post lumbar surgical decompression for left lumbar radicular symptoms, at [facility] 07/2022. Post-op , per 's report, patient developed quadriparesis, left > right, with dysphagia and dysarthria . Pre-op MRI cervical spine report dated 05/2022 notable for moderate spinal canal stenosis at C4/5 and C6/7. Cord signal normal. Repeat MRI cervical spine here at [facility] is notable for large cervical central canal without stenosis and no evidence of cervical myelopathy. There is advanced B foraminal narrowing for cervical spine. . Dario Dey and reports aggravation of chronic bilateral cervical pain extending into bilateral upper trapezius and medial scapular region into the left arm and left hand. There is numbness for the entire left arm and left hand. There is left upper extremity weakness. Onset since July 2022 post op. Aggravation mainly because of position. Pain level is 0 to 1 out of 10 at present . Dario Dey presents for aggravation of chronic bilateral lumbar pain extending into bilateral thighs, calves, feet with intermittent numbness in the same distribution. There is distal lower extremity weakness hindering all transfers. Patient unable to walk. Onset since July 2022 post lumbar surgery. Lumbar pain aggravation mainly regardless of position. Pain level is 9-10 out of 10 at present . No bladder/bowel incontinence. Patient's reports, due to transportation difficulties since she does not have a car before, physical therapy was not done. Patient denies previous spine , DANIEL/TPI. Symptoms are now daily, wax and wanes, and is achy in quality. MRI lumbar spine report dated 05/2022 with severe canal stenosis at L4/5 and L3/4. 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 HENT: + for neck pain, neck stiffness and -sinus pressure. Eyes: Negative for visual disturbance. Cardiovascular: Negative for palpitations and leg swelling. Gastrointestinal: Negative for nausea, vomiting, abdominal pain, diarrhea, constipation, blood in stool, anal bleeding and rectal pain. Musculoskeletal: + for back pain and gait problem. Negative for myalgias, joint swelling and arthralgias. Neurological: Negative for dizziness, tremors, seizures, syncope, speech difficulty, weakness, light-headedness, numbness and headaches. Psychiatric/Behavioral: Negative for dysphoric mood and decreased concentration. Past Medical History: Diagnosis Date Back pain with history of spinal surgery Cauda equina spinal cord injury (HCC) Cervical spinal stenosis Hyperlipidemia Hypertension Lumbar stenosis Past Surgical History: Procedure Lateralit y Date BACK SURGERY 2022 Social History Tobacco Use Smoking status: Former Packs/day: 1.00 Years: 20.00 Additional pack years: 0.00 Total pack years: 20.00 Types: Cigarettes Smokeless tobacco: Never Tobacco comments: Stopped 5-6 months ago Vaping Use Vaping Use: Never used Substance Use Topics Alcohol use: Not Currently Drug use: Never Family History Problem Relation Name Age of Onset Hyperlipidemia Father Hypertension Father Current Outpatient Medications on File Prior to Visit Medication Sig Dispense Refill Amlodipine Besylate (Norvasc) 10 MG oral Tablet Take 1 tablet (10 mg total) by mouth daily 90 tab let 3 Atorvastatin Calcium 40 MG oral Tablet Take 1 tablet (40 mg total) by mouth nightly 90 tablet 3 Baclofen 10 MG oral Tablet 1 po q HS x 7 days, then 1 po BID x 7 days, then 1 po TID 90 tablet 2 Diclofenac Sodium 75 MG oral Tablet Delayed Response Take 1 tablet (75 mg total) by mouth 2 times daily as needed 60 tablet 1 Losartan Potassium (COZAAR) 50 MG oral Tablet Take 1 tablet (50 mg total) by mouth daily 90 tablet 3 No current facility-administered medications on file prior to visit. Physical Exam:Patient in manual wheelchair. Needs 1 person assist for sit to stand maneuvers. General: Patient is well appearing and in no apparent distressPulm: Respirations are regular and unlaboredSkin: no rashesPatient is oriented to person, place and time.CN 2-12 are grossly intact bilaterallyMotor exam: Decreased B cervical rotation with bilateral cervical pain Decreased lumbar flexion/extension with bilateral lumbar pain Trigger points: Bilateral cervical and lumbar paraspinals Spurling's positive bilaterally, Prudencio's positive bilaterally, Spasticity for the left hemiparetic side, Babinski equivocal Strength Testing Right Left Deltoid 5/5 4-/5 Biceps 5/5 4-/5 Triceps 5/5 4-/5 Wrist Flex. 5/5 4-/5 Wrist Ext. 5/5 4-/5 Senior Civil Engineer 5/5 4-/5 Interossei 5/5 4- /5 Hip Flexion 5-/5 5-/5 Knee Ext. 5-/5 5-/5 Knee Flex 5-/5 5-/5 Dorsiflexion 3/5 3/5 EHL 3/5 3/5 Plantarflexion 3/5 3/5 DTRs Right Left Biceps 2+ 2+ Triceps 2+ 2+ Brachiorad 2+ 2+ Knee 2++ 2++ Ankle 2+ 2+ Sensation: Numbness left arm and left leg, all digits on the left sideDTR:Babinski: NormalEdema: NoSLR Right: equivocal sitting, unable to transfer to exam tableLeft: Equivocal sitting, and able to transfer to exam tablePatrick's: NegativeLeg Length discrepancy: NegativeGait: One-person assist for sit to stand. Unable to walk.X-RAYS/MRI: 05/2022 neck soft tissue x-ray:There is moderate/severe degenerative disc disease in lower cervical spine.04/2022 cervical : No gross cervical spine fracture or spondylolisthesis. Cervical spondylosis which is most pronounced at C5-6 and C6-7. This exam was interpreted by a neuroradiology Fellowship trained and board certified radiologist. Thoracic: Radiographically unremarkable thoracic spineLumbar: No acute osseous abnormality demonstrated. Mild lumbar spondylosis. October 2022:Findings:Mild kyphosis centered at C5/C6. No evidence of marrow replacement process or abnormal STIR signal. Craniocervical junction appears normal. Cord demonstrates normal signal without evidence cord expansion. Prevertebral soft tissues are normal. Normal vertebral artery flow voids are visualized.?Level by level analysis:?C2/C3 level: No evidence of canal stenosis, disc herniation or foraminal narrowing. Bilateral facet arthrosis.?C3/C4 level: 2 mm central disc protrusion is noted with mild canal stenosis. Bilateral uncovertebral hypertrophy and facet arthrosis results in severe right neuroforaminal narrowing and moderate to severe left neuroforaminal narrowing. Findings are unchanged compared to prior exam.?C4/C5 level: 2 mm central disc protrusion noted which contacts ventral aspect the cord. Mild canal stenosis. Bilateral uncovertebral hypertrophy and facet arthrosis results in severe right neuroforaminal narrowing and moderate to severe left neuroforaminal narrowing. Facets appear unchanged compared to prior exam.?C5/C6 level: Severe disc height loss. 1 to 2 mm broad-based disc bulge is noted. Bilateral uncovertebral hypertrophy and facet arthrosis results in severe bilateral foraminal narrowing, right greater than left.?C6/C7 level: 3 to 4 mm central left paracentral disc protrusion is noted which contacts and deforms the ventral cord. Mild canal stenosis. Bilateral uncovertebral hypertrophy is noted. Severe bilateral foraminal narrowing.?C7-T1 level: Normal? IMPRESSION: Multilevel degenerative changes are noted, unchanged compared to prior exam.?Component Latest Ref Rng & Units 09/08/2022 ALKALINE PHOSPHATASE, SERUM 39 - 119 U/L 85 AST (SGOT) 18 - 40 U/L 31 ALT (SGPT) 11 - 55 U/L 44 Component Latest Ref Rng & Units 09/08/2022 HEMOGLOBIN A1C 4.8 - 5.6 % 5.7 (H) ESTIM. AVG GLU (EAG) mg/dL 117 Diagnosis: Spastic quadriparesis/Dysphagia/Dysarthria since July 2022, post lumbar surgery at [facility] Cervical MRI [facility] 07/2022 without evidence of cervical myelopathy ( there is advanced B cervical foraminal narrowing) Post lumbar surgical decompression July 2022 at [facility] ( no surgical report or clinical notes available for review) History of severe spinal canal stenosis L4-5 and L3-4 per MRI report May 25, 2022 Dysphagia and dysarthria since July 2022 postopPlan: is main historian. Both patient and are both distressed and crying during previous clinic visitPrevious visit, cervical and lumbar preop MRI report reviewed with the patient and wifePost lumbar surgical decompression July 2022 at [facility] with quadriparesis/dysphagia/dysarthria soon afterwards.Quadriparetic since July 2022. MRI 07/2022 Alejandra images brought up onto computer screen and reviewed in full with the patientPatient and understand that there is no cervical myelopathy that explain quadriparesisConsultation next with neurology (Dr. Ernst visit already scheduled for January 24, 2023). Patient and have been advised to bring in external clinic notes for review.Patient and desires trial of outpatient physical therapy which has already been orderedRefillBaclofen 10 mg TID as can tolerateWife does not recall reason for stopping gabapentinPatient has large home supply of:Pregabalin 75 mg dailyDiclofenac 75 mg twice dailyThis document was created using a voice recognition transcribing system. Incorrect words or phrases may have been missed during proofreading. Please interpret accordingly. [id number] and physical [id number]:42:51History and physical [id number] for patient gutg12551-6Auxwfuz and physical noteLNThedaCare [facility].[id number]:[id number]:[id number]. 3.15|[id number] 2022-11-14 22:59:49 [id number]:59:49Formatting of this [facility] note is different from the Clini c original.Referred by Dr Dove: Patient arrives in manual wheelchair with assistance of . is main historian.Dario Dey presents, post lumbar surgical decompression for left lumbar radicular symptoms, at [facility] 07/2022. Post-op , per 's report, patient developed quadriparesis, left > right, with dysphagia and dysarthria . Pre-op MRI cervical spine report dated 05/2022 notable for moderate spinal canal stenosis at C4/5 and C6/7. Cord signal normal. MRI lumbar spine report dated 05/2022 with severe canal stenosis at L4/5 and L3/4. No other clinic notes available for review. Mr. Dario Dey and reports aggravation of chronic bilateral cervical pain extending into bilateral upper trapezius and medial scapular region into the left arm and left hand. There is numbness for the entire left arm and left hand. There is left upper extremity weakness. Onset since July 2022. Aggravation mainly because of position. Pain level is 9-10 out of 10 at present . Dario Dey presents for aggravation of chronic bilateral lumbar pain extending into bilateral thighs, calves, feet with intermittent numbness in the same distribution. There is distal lower extremity weakness hindering all transfers. Patient unable to walk. Onset since July 2022. Lumbar pain aggravation mainly regardless of position. Pain level is 9-10 out of 10 at present . No bladder/bowel incontinence. Patient's reports, due to transportation difficulties since she does not have a car before, physical therapy was not done. Patient denies previous spine , DANIEL/TPI. 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 HENT: + for neck pain, neck stiffness and -sinus pressure. Eyes: Negative for visual disturbance. Cardiovascular: Negative for palpitations and leg swelling. Gastrointestinal: Negative for nausea, vomiting, abdominal pain, diarrhea, constipation, blood in stool, anal bleeding and rectal pain. Musculoskeletal: + for back pain and gait problem. Negative for myalgias, joint swelling and arthralgias. Neurological: Negative for dizziness, tremors, seizures, syncope, speech difficulty, weakness, light-headedness, numbness and headaches. Psychiatric/Behavioral: Negative for dysphoric mood and decreased concentration. Past Medical History: Diagnosis Date Back pain with history of spinal surgery Cauda equina spinal cord injury (HCC) Cervical spinal stenosis Hyperlipidemia Hypertension Lumbar stenosis Past Surgical History: Procedure Lateralit y Date BACK SURGERY 2022 Social History Tobacco Use Smoking status: Former Packs/day: 1.00 Years: 20.00 Additional pack years: 0.00 Total pack years: 20.00 Types: Cigarettes Smokeless tobacco: Never Tobacco comments: Stopped 5-6 months ago Vaping Use Vaping Use: Never used Substance Use Topics Alcohol use: Not Currently Drug use: Never Family History Problem Relation Name Age of Onset Hyperlipidemia Father Hypertension Father Current Outpatient Medications on File Prior to Visit Medication Sig Dispense Refill Amlodipine Besylate (Norvasc) 10 MG oral Tablet Take 1 tablet (10 mg total) by mouth daily 90 tab let 3 Atorvastatin Calcium 40 MG oral Tablet Take 1 tablet (40 mg total) by mouth nightly 90 tablet 3 Diclofenac Sodium 75 MG oral Tablet Delayed Response Take 1 tablet (75 mg total) by mouth 2 times daily as needed 60 tablet 1 Losartan Potassium (COZAAR) 50 MG oral Tablet Take 1 tablet (50 mg total) by mouth daily 90 tab let 3 Pregabalin 75 MG oral Capsule Take 1 capsule (75 mg total) by mouth daily 30 capsule 0 No current facility-administered medications on file prior to visit. Physical Exam:Patient in manual wheelchair. Needs 1 person assist for sit to stand maneuvers. General: Patient is well appearing and in no apparent distressPulm: Respirations are regular and unlaboredSkin: no rashesPatient is oriented to person, place and time.CN 2-12 are grossly intact bilaterallyMotor exam: Decreased B cervical rotation with bilateral cervical pain Decreased lumbar flexion/extension with bilateral lumbar pain Trigger points: Bilateral cervical and lumbar paraspinals Spurling's positive bilaterally, Prudencio's positive bilaterally, Spasticity for the left hemiparetic side, Babinski equivocal Strength Testing Right Left Deltoid 5/5 4-/5 Biceps 5/5 4-/5 Triceps 5/5 4-/5 Wrist Flex. 5/5 4-/5 Wrist Ext. 5/5 4-/5 Senior Civil Engineer 5/5 4-/5 Interossei 5/5 4- /5 Hip Flexion 5-/5 5-/5 Knee Ext. 5-/5 5-/5 Knee Flex 5-/5 5-/5 Dorsiflexion 3/5 3/5 EHL 3/5 3/5 Plantarflexion 3/5 3/5 DTRs Right Left Biceps 2+ 2+ Triceps 2+ 2+ Brachiorad 2+ 2+ Knee 2++ 2++ Ankle 2+ 2+ Sensation: Numbness left arm and left leg, all digits on the left sideDTR:Babinski: NormalEdema: NoSLR Right: equivocal sitting, unable to transfer to exam tableLeft: Equivocal sitting, and able to transfer to exam tablePatrick's: NegativeLeg Length discrepancy: NegativeGait: One-person assist for sit to stand. Unable to walk.X-RAYS/MRI: 05/2022 neck soft tissue x-ray:There is moderate/severe degenerative disc disease in lower cervical spine.04/2022 cervical : No gross cervical spine fracture or spondylolisthesis. Cervical spondylosis which is most pronounced at C5-6 and C6-7. This exam was interpreted by a neuroradiology Fellowship trained and board certified radiologist. Thoracic: Radiographically unremarkable thoracic spineLumbar: No acute osseous abnormality demonstrated. Mild lumbar spondylosis. Component Latest Ref Rng & Units 09/08/2022 ALKALINE PHOSPHATASE, SERUM 39 - 119 U/L 85 AST (SGOT) 18 - 40 U/L 31 ALT (SGPT) 11 - 55 U/L 44 Component Latest Ref Rng & Units 09/08/2022 HEMOGLOBIN A1C 4.8 - 5.6 % 5.7 (H) ESTIM. AVG GLU (EAG) mg/dL 117 Diagnosis: Cervical myelopathy with spastic quadriparesis since July 2022 Moderate spinal canal stenosis C4-5 and C6-7 per MRI report May 25, 2022 Post lumbar surgical decompression July 2022 at [facility] History of severe spinal canal stenosis L4-5 and L3-4 per MRI report May 25, 2022 Dysphagia and dysarthria since July 2022 postopPlan: is main historian patient and both distressed and crying during exam cervical and lumbar preop MRI report reviewed with the patient and wifePost lumbar surgical decompression July 2022 at [facility] with quadriparesis soon afterwards.Quadriparetic since July 2022. desires further surgical treatment considerations if appropriate.Cervical 2 viewsMRI cervical spine without contrast requestedPatient and desires trial of outpatient physical therapy. Ordered.Start:Baclofen 10 mg TID as can tolerateWife does not recall reason for stopping gabapentinPatient has home supply of:Pregabalin 75 mg dailyDiclofenac 75 mg twice dailyReferral also so given to see neurology for dysphagia and dysarthria since July 2022Follow up if still no alleviationThis document was created using a voice recognition transcribing system. Incorrect words or phrases may have been missed during proofreading. Please interpret accordingly. [id number] and physical gvtxON8414-96-84D10:54:35History and physical [id number] [id number] for patient bsos21785-2Pwushay and physical noteLNThedaCare Regional Medical Center–Neenah[address] [facility] [id number] [id number]:54:351.2.840.104817.1.72. 3.15|1.2.840.697363.1.13.131.2.7.2.727 [id number] Notes Date/Time Note Provider Source 2022-12-01 09:32:40 [id number]:32:40Formatting of [facility] this note might be different from the original.Patient is here for mri review. Pain level is 0/10Took no pain medication today. Pain does [place] [id number] [id number]:33:59Nurse [id number] .[id number] for patient pntj83296-8Jbdij NoteLNThedaCare Regional Medical Center–Neenah2727 [facility] [id number] [id number]:33:591.2.840.1143 50.1.72.3.15|1.2.840.573775.1.13.1 [id number] 2022-11-16 09:43:22 [id number]:43:22Formatting of [facility] this note is different from the original. Chief Complaint Patient presents with Referral Referred by Dr Cathy lin Neck Pain Neck, left arm Pain level is 9/10Took no pain medication today. Pain radiate neck and left arm. 1. What is your pain location? neck2. How long have you had the pain?new3. When did the pain start? . How often do you have pain?constant5. How is the progression since the pain started?worsening6. What is your pain associated with? NA7. What is your pain quality? sharp 8. Where does the pain radiate to? Left arm9. On a scale from 1-10, 1 being the least amount of pain and 10 being the worst, what is your pain level? 12/1009. How severe is your pain?yeqmei22. What is your pain worsened by? Anything 12. Is your pain?same alll the time 13. Is stiffness present?all day14. Have you had any of the following symptoms associated with your pain? Numbness in right leg, toes15. What treatments have you tried? Back surgery, medication ?Patient [place] [id number] [id number]:50:48Nurse [id number] .[id number] for patient [id number] NoteLNMAYADayton Children's Hospital2727 [facility].[id number] [id number]:50:481.2.840.1143 50.1.72.3.15|1.2.840.849632.1.13.1 [id number]"
[2023-03-04 18:37] LABS: Hematocrit 39.2 % (39.6-49.0); Lymphocytes % 24.8 % (15.3-44.8); MCV 97.1 fL (80-100); MPV 7.5 fL (7.6-11.3); Platelets 286 thou/uL (152-406); RBC Red Blood Cell Count 4.04 M/uL (4.33-5.43)
[2023-03-04 18:38] LABS: Absolute Lymphocytes (CBC) 1.9 K/uL (0.7-4.9); Protime INR 0.96
[2023-03-04 18:42] LABS: SARS-CoV-2 Antigen Rapid Res Negative (Negative)
--- NOTE | 2023-03-04 18:47 | RAD REPORT ---
EXAM DESCRIPTION: USExtrem Venous W Compress Bil03/04/2023 6:40 pm CLINICAL HISTORY: Leg pain COMPARISON: 2011 FINDINGS: The common femoral, superficial femoral, greater saphenous, popliteal and posterior tibial veins bilaterally are compressible and demonstrate augmentation. Doppler demonstrates good flow. Grayscale, color and spectral analysis performed on all vessels IMPRESSION: No evidence of deep venous thrombosis involving either lower extremity.
[2023-03-04 18:53] LABS: Albumin 3.2 g/dL (3.4-5.0); Bilirubin Direct 0.2 mg/dL (0-0.2); Bilirubin Indirect, Calculated 0.4 mg/dL (0.2-0.8); Bilirubin Total 0.6 mg/dL (0.2-1.0); Magnesium 2.2 mg/dL (1.6-2.4); Potassium 3.6 mEq/L (3.5-5.1); Protein, Total 7.1 g/dL (6.4-8.2); Troponin High Sensitivity 32.4 pg/mL (<58.9)
--- NOTE | 2023-03-04 19:24 | RAD REPORT ---
EXAM DESCRIPTION: CT - Chest Abd Pelvis Wo Con - 03/04/2023 6:50 pm CLINICAL HISTORY: Shortness of breath and abdominal pain COMPARISON: 2017 and 2021 TECHNIQUE: Computed axial tomography of the chest, abdomen and pelvis was obtained. Oral contrast wa s given. IV contrast was not requested. All CT scans are performed using dose optimization technique as appropriate and may include automated exposure control or mA/KV adjustment according to patient size. FINDINGS: The evaluation of mediastinum, rebecca, vessels and solid organs is limited secondary to the lack of IV contrast administration A few areas of subsegmental atelectasis within the lung bases. No mediastinal or hilar lymphadenopathy is seen. A pleural effusion is not present. A pericardial effusion is not seen. 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 No obstruction. The liver, spleen, pancreas, adrenals and kidneys appear grossly normal There is no evidence of diverticulitis. Colon caliber upper limits normal Small inguinal hernias contain fat IMPRESSION: A few areas of subsegmental atelectasis within the lung bases. 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 No obstruction.
[2023-03-04] MEDS ORDERED: CEFTRIAXONE 1000 MG/VIAL ONE (19:40)
[2023-03-04] MEDS ORDERED: NA CHLORIDE 0.9% 500 ML ONE (19:40)
[2023-03-04] MEDS ORDERED: NA CHLORIDE 0.9% 100 ML ONE (19:40)
--- NOTE | 2023-03-04 19:50 | RAD REPORT ---
EXAM DESCRIPTION: Sumit Single View03/04/2023 7:25 pm CLINICAL HISTORY: cough COMPARISON: Cough FINDINGS: A few areas of sub segmental atelectasis within lungs bilaterally. Otherwise lungs are clear. Heart is normal size
--- NOTE | 2023-03-04 20:43 | RAD REPORT ---
EXAM DESCRIPTION: US - Lower Extremity Arterial Bilat - 03/04/2023 8:04 pm CLINICAL HISTORY: Leg pain COMPARISON: None FINDINGS: Right common femoral, superficial femoral and popliteal arteries demonstrate triphasic waveforms The right posterior tibial and dorsalis pedis arteries demonstrate biphasic waveforms The left common femoral, superficial femoral and popliteal arteries demonstrate triphasic waveforms The left posterior tibial and dorsalis pedis arteries demonstrate biphasic waveforms Grayscale, color and spectral analysis performed on all vessels IMPRESSION: Mild distal lower extremity arterial disease bilaterally
--- NOTE | 2023-03-04 21:43 | EDPHYS ---
Physician Documentation [facility] Name: Dario Dey Age: 62 yrs Sex: Male : 1960 Arrival Date: 03/04/2023 Time: 17:54 Bed 6 Private MD: ED Physician Antonino Burgos HPI: 03/04 19:06 This 62 yrs old Male presents to ER via EMS with complaints of LOWER EXTERMITY curt PAIN AND SWELLING. Historical: - Allergies: 18:10 No Known Allergies; rs5 - PMHx: 18:10 Hypertension; Amyotrophic Lateral Sclerosis ; . (Unknown); rs5 - PSHx: 18:10 Lower back surgery (Hypothyroidism); rs5 - Immunization history:: Adult Immunizations unknown. - Social history:: Smoking status: Patient denies any tobacco usage or history of. ROS: 19:07 Constitutional: Negative for fever, chills, and weight loss, Eyes: Negative for injury, curt pain, redness, and discharge, ENT: Negative for injury, pain, and discharge, Neck: Negative for injury, pain, and swelling, Cardiovascular: Negative for chest pain, palpitations, and edema, Respiratory: Negative for shortness of breath, cough, wheezing, and pleuritic chest pain, Abdomen/GI: Negative for abdominal pain, nausea, vomiting, diarrhea, and constipation, Back: Negative for injury and pain, : Negative for injury, bleeding, discharge, and swelling, Skin: Negative for injury, rash, and discoloration, Neuro: Negative for headache, weakness, numbness, tingling, and seizure, Psych: Negative for depression, anxiety, suicide ideation, homicidal ideation, and hallucinations, Allergy/Immunology: Negative for hives, rash, and allergies, Endocrine: Negative for neck swelling, polydipsia, polyuria, polyphagia, and marked weight changes, 19:07 MS/extremity: Positive for decreased range of motion, pain, swelling, of the right leg and left leg, Exam: 19:07 Constitutional: This is a well developed, well nourished patient who is awake, alert, curt and in no acute distress. Head/Face: Normocephalic, atraumatic. Eyes: Pupils equal round and reactive to light, extra-ocular motions intact. Lids and lashes normal. Conjunctiva and sclera are non-icteric and not injected. Cornea within normal limits. Periorbital areas with no swelling, redness, or edema. ENT: Nares patent. No nasal discharge, no septal abnormalities noted. Tympanic membranes are normal and external auditory canals are clear. Oropharynx with no redness, swelling, or masses, exudates, or evidence of obstruction, uvula midline. Mucous membranes moist. Neck: Trachea midline, no thyromegaly or masses palpated, and no cervical lymphadenopathy. Supple, full range of motion without nuchal rigidity, or vertebral point tenderness. No Meningismus. Chest/axilla: Normal chest wall appearance and motion. Nontender with no deformity. No lesions are appreciated. Cardiovascular: Regular rate and rhythm with a normal S1 and S2. No gallops, murmurs, or rubs. Normal PMI, no JVD. No pulse deficits. 19:07 Respiratory: Lungs have equal breath sounds bilaterally, clear to auscultation and percussion. No rales, rhonchi or wheezes noted. No increased work of breathing, no retractions or nasal flaring. Abdomen/GI: Soft, non-tender, with normal bowel sounds. No distension or tympany. No guarding or rebound. No evidence of tenderness throughout. Back: No spinal tenderness. No costovertebral tenderness. Full range of motion. Skin: Warm, dry with normal turgor. Normal color with no rashes, no lesions, and no evidence of cellulitis. Psych: Awake, alert, with orientation to person, place and time. Behavior, mood, and affect are within normal limits. 19:07 ECG was reviewed by the Attending Physician. 19:07 Musculoskeletal/extremity: ROM: limited active range of motion due to pain, limited passive range of motion due to pain, Circulation is intact in all extremities. Compartment Syndrome exam of affected extremity: is normal. Weight bearing: is unable to bear weight, DVT Exam: no tenderness, negative Homans' sign noted on exam, no appreciated bluish discoloration, no erythema, no increased warmth, pain, swelling, tenderness, Vital Signs: 18:00 BP 154 / 88; Pulse 98; Resp 18; Temp 98.1(O); Pulse Ox 99% ; rs5 18:00 BP 179 / 100; Pulse 82; Resp 18; Pulse Ox 99% on R/A; rs5 18:54 BP 154 / 88; Pulse 91; Resp 18; Pulse Ox 99% on R/A; rs5 19:50 BP 135 / 95; Pulse 82; Resp 23 S; Pulse Ox 97% on R/A; jw7 21:00 BP 149 / 84; Pulse 79; Resp 23 S; Pulse Ox 98% on R/A; jw7 22:00 BP 148 / 92; Pulse 76; Resp 20 S; Pulse Ox 100% on R/A; jw7 23:30 BP 173 / 97; Pulse 89; Resp 20 S; Pulse Ox 99% on R/A; jw7 MDM: 18:07 Patient medically screened. curt 19:00 Counseling: I had a detailed discussion with the patient and/or guardian regarding the ms3 historical points, exam findings, and any diagnostic results supporting the discharge/admit diagnosis, lab results, radiology results, the need for outpatient follow up, to return to the emergency department if symptoms worsen or persist or if there are any questions or concerns that arise at home. Response to treatment: the patient's symptoms have markedly improved after treatment, and as a result, I will discharge patient. Transition of care: Care assumed from Torrey Goss MD. ED course: Discussed CT findings, labs with patient. Patient without abdominal tenderness, distention, vomiting, tolerating p.o. Patient states his symptoms in his legs have improved. Patient to follow-up with primary care physician in 2 to 3 days. Patient understands and agrees with plan. All questions were answered. Return precautions discussed include worsening symptoms, or any other concerns. 19:10 Differential diagnosis: contusion, tendonitis. Differential Diagnosis altered mental curt status, sepsis, flu. Data reviewed: vital signs, nurses notes, lab test result(s), EKG, radiologic studies, CT scan, doppler. I considered the following discharge prescriptions or medication management in the emergency department Medications were administered in the Emergency Department. See MAR. Test considered but Not performed: Ultrasound NO ABD US. Care significantly affected by the following chronic conditions: Hypertension, ALS. 19:46 ED course: Discussed volvulus with Dr Garduno. Likely incidental given patient does not ms3 have abdominal pain, abdominal distention, or vomiting.. 03/04 18:08 Order name: Basic Metabolic Panel; Complete Time: 19:00 [facility] 03/04 18:08 Order name: CBC with Diff; Complete Time: 19:00 curt 03/04 18:08 Order name: LFT's; Complete Time: 19:00 [facility] 03/04 18:08 Order name: Magnesium; Complete Time: 19:00 [facility] 03/04 18:08 Order name: NT PRO-BNP; Complete Time: 19:00 [facility] 03/04 18:08 Order name: PT-INR; Complete Time: 19:00 [facility] 03/04 18:08 Order name: Troponin HS; Complete Time: 19:00 [facility] 03/04 18:08 Order name: Lipase; Complete Time: 19:00 [facility] 03/04 18:08 Order name: Blood Culture Adult (2) [facility] 03/04 18:08 Order name: Lactate w/ 2H reflex if indic.; Complete Time: 19:00 [facility] 03/04 18:08 Order name: SARS RAPID; Complete Time: 19:00 [facility] 03/04 18:08 Order name: Flu; Complete Time: 19:00 [facility] 03/04 20:46 Order name: Lactate w/ 2H reflex if indic.; Complete Time: 21:42 ms3 03/04 18:08 Order name: XRAY Chest (1 view); Complete Time: 20:46 [facility] 03/04 18:08 Order name: US Extremity Venous W Compression Kee; Complete Time: 19:00 [facility] 03/04 18:08 Order name: CT Chest Abdomen Pelvis W/O Contrast; Complete Time: 19:30 [facility] 03/04 19:04 Order name: US LE Arterial Bilateral; Complete Time: 20:46 [facility] 03/04 18:08 Order name: EKG; Complete Time: 18:09 [facility] 03/04 18:08 Order name: Cardiac monitoring; Complete Time: 18:24 [facility] 03/04 18:08 Order name: EKG - Nurse/Tech; Complete Time: 18:46 [facility] 03/04 18:08 Order name: IV Saline Lock; Complete Time: 18:24 [facility] 03/04 18:08 Order name: Labs collected and sent; Complete Time: 18:24 [facility] 03/04 18:08 Order name: O2 Per Protocol; Complete Time: 18:24 [facility] 03/04 18:08 Order name: O2 Sat Monitoring; Complete Time: 18:24 [facility] 03/04 19:32 Order name: NPO; Complete Time: 19:49 curt EC:07 Rate is 86 beats/min. Rhythm is regular. QRS [place] is Normal. [place] interval is shortened curt at 108 msec. QRS interval is normal. QT interval is normal. No Q waves. T waves are Normal. No ST changes noted. Clinical impression: NSR w/ Non-specific ST/T Changes and No evidence of ischemia. Administered Medications: 18:30 Drug: NS 0.9% IV 1000 ml IV at 75 ml/hr continuous Route: IV; Rate: 75 ml/hr; Site: rs5 right antecubital; 18:30 Follow up: Response: No adverse reaction rs5 22:20 Follow up: Response: No adverse reaction; IV Status: IV converted to saline lock; IV jw7 Intake: 225ml 19:48 Drug: NS 0.9% IV 500 ml IV at bolus once Route: IV; Rate: bolus; Site: right hand; jw7 22:20 Follow up: Response: No adverse reaction; IV Status: Completed infusion; IV Intake: jw7 500ml 19:48 Drug: Rocephin IV 1 grams IV at per protocol once; Given slow IV push per pharmacy jw7 instructions Route: IV; Rate: per protocol; Site: right hand; 22:20 Follow up: Response: No adverse reaction; IV Status: Completed infusion; IV Intake: jw7 100ml 23:51 Follow up: Response: No adverse reaction; IV Status: Completed infusion; IV Intake: jw7 100ml 23:31 Not Given (Other Intervention Used): ipratropiumaerosol 0.5 mg Inhalation once jw7 23:31 Not Given (Other Intervention Used): levalbuterol1.25 mg Inhalation once jw7 Disposition Summary: 03/04/23 21:42 Discharge Ordered Notes: Location: Home ms3 Condition: Stable ms3 Diagnosis - Pain in left leg ms3 - Pain in right leg ms3 - Mesenteric volvulus ms3 Followup: ms3 - With: Mark Hughes DO - When: 2 - 3 days - Reason: Recheck today's complaints Forms: - Medication Reconciliation Form ms3 - Thank You Letter ms3 - Antibiotic Education ms3 - Prescription Opioid Use ms3 - Patient Portal Instructions ms3 - Leadership Thank You Letter ms3 Signatures: Dispatcher [employer] Torrey Ricardo MD MD cha Sims, Marcus, DO DO ms3 Daja Lackey RN RN jw7 Oj Sanders RN RN rs5 Corrections: (The following items were deleted from the chart) 18:14 18:10 PMHx: Hypothyroidism; rs5 rs5 18:14 18:10 PMHx: ALS (Hypothyroidism); rs5 rs5 18:14 18:10 PMHx: ALS (Hypothyroidism); rs5 rs5 18:14 18:10 PSHx: ALS (Hypothyroidism); rs5 rs5
--- NOTE | 2023-03-04 21:43 | ER ---
Nurse's Notes [facility] Name: Dario eDy Age: 62 yrs Sex: Male : 1960 Arrival Date: 03/04/2023 Time: 17:54 Bed 6 Private MD: Diagnosis: Pain in left leg;Pain in right leg;Mesenteric volvulus Presentation: 03/04 18:00 Chief complaint: EMS states: Pt called EMS for bilat lower leg swelling and worsening rs5 pain to affected extremitites. 18:00 Coronavirus screen: At this time, the client does not indicate any symptoms associated rs5 with coronavirus-19. Ebola Screen: No symptoms or risks identified at this time. Initial Sepsis Screen: Does the patient meet any 2 criteria? No. Patient's initial sepsis screen is negative. Does the patient have a suspected source of infection? No. Patient's initial sepsis screen is negative. Risk Assessment: Do you want to hurt yourself or someone else? Patient reports no desire to harm self or others. Onset of symptoms was March 04, 2023. 18:00 Method Of Arrival: EMS: [facility] rs5 18:00 Acuity: DANIEL 3 rs5 Historical: - Allergies: 18:10 No Known Allergies; rs5 - PMHx: 18:10 Hypertension; Amyotrophic Lateral Sclerosis ; . (Unknown); rs5 - PSHx: 18:10 Lower back surgery (Hypothyroidism); rs5 - Immunization history:: Adult Immunizations unknown. - Social history:: Smoking status: Patient denies any tobacco usage or history of. Screenin:00 [facility] ED Fall Risk Assessment (Adult). [facility] ED Fall Risk Assessment (Adult) jw7 History of falling in the last 3 months, including since admission No falls in past 3 months (0 pts) Confusion or Disorientation No (0 pts) Intoxicated or Sedated No (0 pts) Impaired Gait Yes (1 pt) Mobility Assist Device Used Yes (1 pt) Altered Elimination No (0 pt) Score/Fall Risk Level 3 or more points = High Risk Oriented to surroundings, Maintained a safe environment, Educated pt \\T\\ family on fall prevention, incl call for assistance when getting out of bed, Assessed \\T\\ reinforced patient's understanding of fall precautions. Abuse screen: Denies threats or abuse. Denies injuries from another. Nutritional screening: No deficits noted. Tuberculosis screening: No symptoms or risk factors identified. Assessment: 18:00 General: Appears in no apparent distress. uncomfortable, Behavior is calm, cooperative. rs5 Pain: Complains of pain in right leg and left leg Pain does not radiate. Pain currently is 4 out of 10 on a pain scale. Quality of pain is described as aching, Pain began 2-3 days ago. Is continuous. Neuro: Level of Consciousness is awake, alert, obeys commands, Oriented to person, place, time, situation. Cardiovascular: Heart tones S1 S2 present Rhythm is regular. Cardiovascular: Denies chest pain. Respiratory: Airway is patent Respiratory effort is even, unlabored, Respiratory pattern is regular, symmetrical, Breath sounds are clear bilaterally. GI: Abdomen is round non-distended, Bowel sounds present X 4 quads. Abd is soft and non tender X 4 quads. Patient currently denies nausea, vomiting. : No signs and/or symptoms were reported regarding the genitourinary system. EENT: No signs and/or symptoms were reported regarding the EENT system. Derm: Skin is dry, Skin is normal, Skin temperature is warm. Musculoskeletal: Circulation, motion, and sensation intact. Capillary refill < 3 seconds, is brisk, in bilateral fingers. toes. Range of motion: limited in all extremities, Swelling present in right leg and left leg Pt states "I had a stroke one year ago and I am weak on my left side, and I have ALS so I have trouble moving my right arm and leg also". 18:52 Reassessment: Patient and/or family updated on plan of care and expected duration. Pain rs5 level reassessed. Patient is alert, oriented x 3, equal unlabored respirations, skin warm/dry/pink. 19:50 Reassessment: Patient appears in no apparent distress at this time. Patient and/or jw7 family updated on plan of care and expected duration. Pain level reassessed. Patient is alert, oriented x 3, equal unlabored respirations, skin warm/dry/pink. 20:00 General: patient requested suctioning to help remove secretions from mouth. jw7 21:00 Reassessment: Patient appears in no apparent distress at this time. Patient and/or jw7 family updated on plan of care and expected duration. Pain level reassessed. Patient is alert, oriented x 3, equal unlabored respirations, skin warm/dry/pink. 22:00 General: Discharge pending pickup by EMS. jw7 22:18 Reassessment: Patient appears in no apparent distress at this time. No changes from jw7 previously documented assessment. Patient and/or family updated on plan of care and expected duration. Pain level reassessed. Patient is alert, oriented x 3, equal unlabored respirations, skin warm/dry/pink. 23:49 Reassessment: Patient appears in no apparent distress at this time. No changes from jw7 previously documented assessment. Patient and/or family updated on plan of care and expected duration. Pain level reassessed. Patient is alert, oriented x 3, equal unlabored respirations, skin warm/dry/pink. Vital Signs: 18:00 BP 154 / 88; Pulse 98; Resp 18; Temp 98.1(O); Pulse Ox 99% ; rs5 18:00 BP 179 / 100; Pulse 82; Resp 18; Pulse Ox 99% on R/A; rs5 18:54 BP 154 / 88; Pulse 91; Resp 18; Pulse Ox 99% on R/A; rs5 19:50 BP 135 / 95; Pulse 82; Resp 23 S; Pulse Ox 97% on R/A; jw7 21:00 BP 149 / 84; Pulse 79; Resp 23 S; Pulse Ox 98% on R/A; jw7 22:00 BP 148 / 92; Pulse 76; Resp 20 S; Pulse Ox 100% on R/A; jw7 23:30 BP 173 / 97; Pulse 89; Resp 20 S; Pulse Ox 99% on R/A; jw7 ED Course: 17:55 Patient arrived in ED. mb9 18:07 Oj Sanders, BRITTANY is Primary Nurse. rs5 18:07 Torrey Goss MD is Attending Physician. curt 18:10 Triage completed. rs5 18:30 Flu Sent. bc6 18:30 SARS RAPID Sent. bc6 18:30 Lactate w/ 2H reflex if indic. Sent. bc6 18:30 Blood Culture Adult (2) Sent. bc6 18:30 Lipase Sent. bc6 18:30 Basic Metabolic Panel Sent. bc6 18:30 CBC with Diff Sent. bc6 18:30 LFT's Sent. bc6 18:30 Magnesium Sent. bc6 18:30 NT PRO-BNP Sent. bc6 18:30 PT-INR Sent. bc6 18:30 Troponin HS Sent. bc6 18:30 Inserted saline lock: 20 gauge in right wrist, using aseptic technique. Blood collected.6 18:34 Cande Lindsey \\Shoshana\\ [phone]/ she is the / would like to be called with update eb and disposition. 18:41 US Extremity Venous W Compression Kee In Process Unspecified. EDMS 18:52 CT Chest Abdomen Pelvis W/O Contrast In Process Unspecified. EDMS 19:00 Arm band placed on. jw7 19:00 Patient has correct armband on for positive identification. Bed in low position. Call jw7 light in reach. Side rails up X2. 19:27 XRAY Chest (1 view) In Process Unspecified. EDMS 19:27 Attending Physician role handed off by Torrey Goss MD ms3 19:27 Antonino Burgos DO is Attending Physician. ms3 20:05 US LE Arterial Bilateral In Process Unspecified. EDMS 21:21 Assisted with bedpan. Repositioned patient. Cleaned of incontinence. jw7 21:42 Mark Hughes DO is Referral Physician. ms3 22:21 No provider procedures requiring assistance completed. jw7 12/04 00:14 IV discontinued, intact, bleeding controlled, No redness/swelling at site. Pressure jw7 dressing applied. 00:14 Provided Education on: discharge instructions . jw7 Administered Medications: 03 18:30 Drug: NS 0.9% IV 1000 ml IV at 75 ml/hr continuous Route: IV; Rate: 75 ml/hr; Site: rs5 right antecubital; 18:30 Follow up: Response: No adverse reaction rs5 22:20 Follow up: Response: No adverse reaction; IV Status: IV converted to saline lock; IV jw7 Intake: 225ml 19:48 Drug: NS 0.9% IV 500 ml IV at bolus once Route: IV; Rate: bolus; Site: right hand; jw7 22:20 Follow up: Response: No adverse reaction; IV Status: Completed infusion; IV Intake: jw7 500ml 19:48 Drug: Rocephin IV 1 grams IV at per protocol once; Given slow IV push per pharmacy jw7 instructions Route: IV; Rate: per protocol; Site: right hand; 22:20 Follow up: Response: No adverse reaction; IV Status: Completed infusion; IV Intake: jw7 100ml 23:51 Follow up: Response: No adverse reaction; IV Status: Completed infusion; IV Intake: jw7 100ml 23:31 Not Given (Other Intervention Used): ipratropiumaerosol 0.5 mg Inhalation once jw7 23:31 Not Given (Other Intervention Used): levalbuterol1.25 mg Inhalation once jw7 Medication: 22:21 VIS not applicable for this client. jw7 Intake: 22:20 IV: 100ml; Total: 100ml. jw7 22:20 IV: 500ml; Total: 600ml. jw7 22:20 IV: 225ml; Total: 825ml. jw7 23:51 IV: 100ml; Total: 925ml. jw7 Outcome: 21:42 Discharge ordered by . ms3 03/05 00:14 Discharged to home via ambulance, jw7 Condition: stable Discharge instructions given to patient, Instructed on discharge instructions, follow up and referral plans. Demonstrated understanding of instructions, follow-up care, 00:14 Patient left the ED. jw7 Signatures: Dispatcher [employer] EDMS Torrey Goss MD MD cha Botello, Elizabeth eb Sims, Marcus, DO DO ms3 Daja Laceky RN RN jw7 Martha Marino RN RN mb9 Oj Sanders RN RN rs5 Eda Martinez bc6 Corrections: (The following items were deleted from the chart) 03/04 18:14 18:10 PMHx: Hypothyroidism; rs5 rs5 18:14 18:10 PMHx: ALS (Hypothyroidism); rs5 rs5 18:14 18:10 PMHx: ALS (Hypothyroidism); rs5 rs5 18:14 18:10 PSHx: ALS (Hypothyroidism); rs5 rs5 19:52 19:52 Arm band placed on jw7 jw7 03/05 00:13 03/04 23:00 BP 173 / 97; Pulse 89bpm; Resp 20bpm; Spontaneous; Pulse Ox 99% RA; jw7 jw7
[2023-03-05 02:12] VITALS: TEMP 98.1
[2023-03-05 02:21] VITALS: BP 173/97; O2SAT 99
--- NOTE | 2023-03-06 13:34 | EKG ---
Test Date: 2023-03-04 Test Time: 18:23:56 Silverware Washer: THOMPSON MEASUREMENT RESULTS: Intervals: Rate: 86 VA: 108 QRSD: 134 QT: 442 QTc: 528 [place]: P: 71 VA: 108 QRS: -72 T: 21 INTERPRETIVE STATEMENTS: Sinus rhythm with short VA Left axis deviation Right bundle branch block Abnormal ECG Electronically Signed On 03-06-23 13:28:08 PROJECT ACCOUNT MANAGER by Reggie Montaño
== END 2023-03-05 00:14 | disposition home or self-care (01) ==
LOC: ER 17:54
DX: M79.605 Pain in left leg (principal); M79.604 Pain in right leg; K56.2 Volvulus
CPT/HCPCS: 36415; 71045; 71250; 74176; 80048; 80076; 83605; 83690; 83735; 83880; 84484; 85025; 85610; 87040; 87804; 87811; 93005; 93925; 93970; 96361; 96365; 96366; 99284; J0696; J7040

== ENCOUNTER → 2023-04-24 | Emergency (ER) | payer SELFPAY ==
--- OUTSIDE RECORDS SUMMARY | 2023-04-24 12:46 | XMS REPORT | Continuity of Care Document ---
Author Name Unknown Address [address] [facility] [address] [place] [address] [facility] thconnect Address [address] [facility] [address] [place] [address] Care Team Providers Care Gear Roller Name Role Phone ANJEL THOMAS Primary Care Physician Unavaila ABIMAEL Bonilla Attending Clinician Unavailable YEN DELCID Attending Clinician Unavail able YEN DELCID Attending Clinician Unavail able KRYSTLE CRUZ Attending Clinician Unavailable HARVINDER WILLIAM Attending Clinician Unavailable Harvinder Sulliavn Attending Clinician JESUS ALBERTO WORRELL Attending Clinician Unavaila LJ Rosenberg Attending Clinician UnavailEUNICE Aparicio Attending Clinician Unavailable CLARA SAVAGE Attending Clinician Unavailable KRYSTA KOO Attending Clinician Unavailable LAW ERNST Attending Clinician Unavailab OLIVIA Mccray Attending Clinician Unavailable ROGER PARSON Attending Clinician Unavailab MICHAELA Nash Attending Clinician Un available SARAH VEGA Attending Clinician Unavailable LAB90 Attending Clinician Unavailable BURTON, MERRILL Q Attending Clinician Unavailable SYLVIA STARK Attending Clinician UnavailMiguel Best MD Attending Clinician [phone] MIGUEL SHELTON Attending Clinician UnavailCAMERON Anand Attending Clinician ADAL Cramer Attending Clinician Unavailable Adal Ta MD Attending Clinician [phone] Doctor Unassigned, [place] Attending Clinician U Cameron Abdullahi MD Attending Clinician [phone] HARVINDER WILLIAM Admitting Clinician Unavailable JESUS ALBERTO WORRELL Admitting Clinician UnavailSYLVIA Dick Admitting Clinician UnavailADAL Valero Admitting Clinician Unavailable Payers Payer Name Policy Type Policy Number Effective Date Expirati on Date Source ALEJANDRA Bright [employer]ET[employer] [id number] 2022 00:00:00 [employer] MP [facility]: HMO STRAND [employer] 94 ON STAND 9 [id number] 2022 00:00:00 HU[employer] GOLD PLS O [id number] 2023 00:00:00 MEDICARE PART A \\T\\ B [id number] 2022 00:00:00 Problems Condition Name Condition Details Condition Category Status Onset Date Resolution Date Last Treatment Date Treating Clinician Comments Source Leg swelling Leg swelling Disease Active 2022-04-14 00:00: 00 [facility] Edema of both lower extremitie s Edema of both lower extremitie s Disease Active 2022-04 00:00: 00 Alejandra Burnettold - Externa l 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 2022-04 0-20 00:00: 00 Alejandra Burnettold - Externa l Dysphonia Dysphonia Disease Active 12-22 00:00: 00 Alejandra Burnettold - Externa l Screening for lung cancer Screening for lung cancer Disease Active - 00:00: 00 Alejandra Gama - Externa l Prediabete s Prediabete s Disease Active 10-09 00:00: 00 Alejandra Gama - Externa l Hypertensi on Hypertensi on Disease Active 09-08 00:00: 00 Alejandra Gama - Externa l Hyperlipid emia Hyperlipid emia Disease Active 09-08 00:00: 00 Alejandra Gama - Externa l Cervical spinal stenosis Cervical spinal stenosis Disease Active 09-08 00:00: 00 Alejandra Gama - Externa l 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 spinal cord injury Disease Active 09-08 00:00: 00 Alejandra Gama - Externa l Lumbar stenosis Lumbar stenosis Disease Active 09-08 00:00: 00 Alejandra Gama - Externa l Back pain with history of spinal surgery Back pain with history of spinal surgery Disease Active 09-08 00:00: 00 Alejandra Gama - Externa l Allergies, Adverse Reactions, Alerts Allergy Name Allergy Type Status Severity Reaction(s) Onset Date Inactive Date Treating Clinician Comments Source NO KNOWN ALLERGIE S Drug Class Active [facility] Social History Social Habit Start Date Stop Date Quantity Comments Source Sexual orientation [facility] Gender identity Precious Gama - External History of tobacco use Cigarette Smoker Alejandra mendoza - External History of Social function 2023-02-13 00:00:00 2023-02-13 00:00:00 [facility] Alcohol intake 2023-01-26 00:00:00 2023-01-26 00:00:00 Ex-drinker (finding) Alejandra Gama - External Education 2022-10-09 00:00:00 2022-10-09 00:00:00 9 Alejandra Gama - External Tobacco Comment 2022-09-07 00:00:00 2022-09-07 00:00:00 Stopped 5-6 months ago Alejandra Gama - External Cigarettes smoked current (pack per day) - Reported 2022-09-07 00:00:00 2022-09-07 00:00:00 Alejandra Bright External Cigarette pack-years 2022-09-07 00:00:00 2022-09-07 00:00:00 Alejandra Gama - External Exposure to SARS-CoV-2 (event) 2022-06-12 00:00:00 2022-06-22 08:49:00 Not sure [facility] Tobacco use and exposure 2022-05-02 00:00:00 2022-05-02 00:00:00 Smokeless tobacco non-user [facility] Sex Assigned At 1960 00:00:00 1960 00:00:00 Alejandra Ngo Smoking Status Start Date Stop Date Source Ex-smoker 2022-09-07 00:00:00 2022-09-07 00:00:00 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 Ordering Clinician Indication Dosage Frequency Signature (SIG) Comments Components Source iopamidol (ISOVUE 370-500 mL) injection 78 mL 04-12 23:45: 00 04-12 23:45 :00 No [id number] 78mL 78 mL, Intravenou s, ONCE, 1 dose, On Sun04/12/23 at 1745, Routine [facility] furosemide (LASIX) injection 40 mg 2022-04 23:00: 00 02-13 23:00 :00 No 40mg 40 mg, IV Push, ONCE, 1 dose, [facility]02/13/23 [facility]00[facility] -acetaminop hen (NORCO 5) 5-325 mg tablet 1 tablet 2022-04 22:30: 00 02-13 22:46 :00 No 1{tbl} 1 tablet, Oral, ONCE, 1 dose, On Sun02/13/23 at 1630[facility] hydro[facility]O thiazide 25 MG oral Tablet 2022-04 00:00: 00 Yes [id number] 25mg Take 1 tablet (25 mg total) by mouth daily. Alejandra lopez hydroCHLORO thiazide 25 MG oral Tablet 2022-04 00:00: 00 Yes [id number] 25mg Take 1 tablet (25 mg total) by mouth daily. Alejandra lopez hydroCHLORO thiazide 25 MG oral Tablet 2022-04 0 00:00: 00 Yes [id number] 25mg Take 1 tablet (25 mg total) by mouth daily. Alejandra lopez Sertraline HCl 25 MG oral Tablet 2022-04 0 00:00: 00 Yes [id number] 25mg Take 1 tablet (25 mg total) by mouth daily. Alejandra Sandersa john Sertraline HCl 25 MG oral Tablet 2022-04 0 00:00: 00 Yes [id number] 25mg Take 1 tablet (25 mg total) by mouth daily. Alejandra lopez Sertraline HCl 25 MG oral Tablet 2022-04 0 00:00: 00 Yes [id number] 25mg Take 1 tablet (25 mg total) by mouth daily. Alejandra lopez Pantoprazol e Sodium 40 MG oral Tablet Delayed Response 2022-04 0 00:00: 00 Yes 40mg Take 1 tablet (40 mg total) by mouth daily. Alejandra lopez Pantoprazol e Sodium 40 MG oral Tablet Delayed Response 2022-04 0 00:00: 00 Yes 40mg Take 1 tablet (40 mg total) by mouth daily. Alejandra lopez Pantoprazol e Sodium 40 MG oral Tablet Delayed Response 2022-04 0 00:00: 00 Yes 40mg Take 1 tablet (40 mg total) by mouth daily. Alejandra lopez Riluzole 50 MG oral Tablet 12-28 00:00: 00 Yes [id number] 1{tbl} TAKE 1 TABLET BY MOUTH TWICE A DAY Alejandra lopez Riluzole 50 MG oral Tablet 12-28 00:00: 00 Yes [id number] 1{tbl} TAKE 1 TABLET BY MOUTH TWICE A DAY Alejandra lopez Riluzole 50 MG oral Tablet 12-28 00:00: 00 Yes [id number] 1{tbl} TAKE 1 TABLET BY MOUTH TWICE A DAY Alejandra lopez Riluzole 50 MG oral Tablet 12-26 00:00: 00 Yes [id number] 50{tbl} TAKE 50 TABLETS BY MOUTH 2 TIMES DAILY. Alejandra Sandersa john Riluzole 50 MG oral Tablet 0 12-26 00:00: 00 Yes [id number] 50{tbl} TAKE 50 TABLETS BY MOUTH 2 TIMES DAILY. Alejandra Bright Externa john Riluzole 50 MG oral Tablet 12-26 00:00: 00 12-26 00:00 :00 No [id number] 50{tbl} Take 50 tablets by mouth 2 times daily. Alejandra Bright Externa john Pantoprazol e Sodium 40 MG oral Tablet Delayed Response 0 12-12 00:00: 00 Yes Alejandra Bright Externa john Benzonatate 100 MG oral Capsule 0 12-12 00:00: 00 Yes Alejandra Bright Externa john FLUTICASONE PROPIONATE, NASAL, 50 MCG/ACT nasal Suspension 0 12-12 00:00: 00 Yes Alejandra Sandersa john Pantoprazol e Sodium 40 MG oral Tablet Delayed Response 0 12-12 00:00: 00 Yes Alejandra Bright Externa john Benzonatate 100 MG oral Capsule 0 12-12 00:00: 00 Yes Alejandra Bright Externa john FLUTICASONE PROPIONATE, NASAL, 50 MCG/ACT nasal Suspension 0 12-12 00:00: 00 Yes Alejandra Bright Externa john Pantoprazol e Sodium 40 MG oral Tablet Delayed Response 0 12-12 00:00: 00 Yes Alejandra Sandersa john Benzonatate 100 MG oral Capsule 0 12-12 00:00: 00 Yes Alejandra Bright Externa john FLUTICASONE PROPIONATE, NASAL, 50 MCG/ACT nasal Suspension 0 12-12 00:00: 00 Yes Alejandra Bright Externa john Pantoprazol e Sodium 40 MG oral Tablet Delayed Response 0 12-12 00:00: 00 Yes Alejandra Bright Externa john FLUTICASONE PROPIONATE, NASAL, 50 MCG/ACT nasal Suspension 0 12-12 00:00: 00 Yes Alejandra Bright Externa jonh Pantoprazol e Sodium 40 MG oral Tablet Delayed Response 0 12-12 00:00: 00 Yes Alejandra Seybold - Externa l FLUTICASONE PROPIONATE, NASAL, 50 MCG/ACT nasal Suspension 2022-0 12-12 00:00: 00 Yes Alejandra Burnettold - Externa l FLUTICASONE PROPIONATE, NASAL, 50 MCG/ACT nasal Suspension 0 12-12 00:00: 00 Yes Alejandra Krugerybold - Externa l FLUTICASONE PROPIONATE, NASAL, 50 MCG/ACT nasal Suspension 0 12-12 00:00: 00 Yes Alejandra Lexold - Externa l FLUTICASONE PROPIONATE, NASAL, 50 MCG/ACT nasal Suspension 2022-0 12-12 00:00: 00 Yes Alejandra Gama - Externa l Benzonatate 100 MG oral Capsule 0 12-12 00:00: 00 12-27 00:00 :00 No Alejandra Gama - Externa l Benzonatate 100 MG oral Capsule 0 12-12 00:00: 00 12-27 00:00 :00 No Alejandra Gama - Externa l Baclofen 10 MG oral Tablet 0 12-01 00:00: 00 Yes 1 po q HS x 7 days, then 1 po BID x 7 days, then 1 po TID. Alejandra Gama - Externa l Baclofen 10 MG oral Tablet 0 12-01 00:00: 00 Yes 1 po q HS x 7 days, then 1 po BID x 7 days, then 1 po TID. Alejandra Gama - Externa l Baclofen 10 MG oral Tablet 0 12-01 00:00: 00 Yes 1 po q HS x 7 days, then 1 po BID x 7 days, then 1 po TID. Alejandra Seybold - Externa l Baclofen 10 MG oral Tablet 0 12-01 00:00: 00 Yes 1 po q HS x 7 days, then 1 po BID x 7 days, then 1 po TID. Alejandra Seybold - Externa l Baclofen 10 MG oral Tablet 0 12-01 00:00: 00 12-27 00:00 :00 No 1 po q HS x 7 days, then 1 po BID x 7 days, then 1 po TID. Alejandra Krugerybold - Externa l Baclofen 10 MG oral Tablet 12-01 00:00: 00 12-27 00:00 :00 No 1 po q HS x 7 days, then 1 po BID x 7 days, then 1 po TID. Alejandra Sandersa john Baclofen 10 MG oral Tablet 11-16 00:00: 00 Yes 1 po q HS x 7 days, then 1 po BID x 7 days, then 1 po TID Alejandra Sandersa john Baclofen 10 MG oral Tablet 11-16 00:00: 12-01 00:00 :00 No 1 po q HS x 7 days, then 1 po BID x 7 days, then 1 po TID Alejandra Sandersa john Pregabalin 75 MG oral Capsule 10-11 00:00: 00 11-16 00:00 :00 No [id number] 75mg Take 1 capsule (75 mg total) by mouth daily Alejandra Sandersa john Diclofenac Sodium 75 MG oral Tablet Delayed Response 0 7-10 00:00: 00 Yes [id number] 75mg Q.5D Take 1 tablet (75 mg total) by mouth 2 times daily as needed Alejandra Sandersa john Diclofenac Sodium 75 MG oral Tablet Delayed Response 0 7-10 00:00: 00 Yes [id number] 75mg Q.5D Take 1 tablet (75 mg total) by mouth 2 times daily as needed Alejandra Bright Externa l Diclofenac Sodium 75 MG oral Tablet Delayed Response 0 7-10 00:00: 00 Yes [id number] 75mg Q.5D Take 1 tablet (75 mg total) by mouth 2 times daily as needed Alejandra Bright Externa l Diclofenac Sodium 75 MG oral Tablet Delayed Response 0 7-10 00:00: 00 Yes [id number] 75mg Q.5D Take 1 tablet (75 mg total) by mouth 2 times daily as needed Alejandra Bright Externa l Diclofenac Sodium 75 MG oral Tablet Delayed Response 0 7-10 00:00: 00 Yes [id number] 75mg Q.5D Take 1 tablet (75 mg total) by mouth 2 times daily as needed Alejandra Bright Externa l Diclofenac Sodium 75 MG oral Tablet Delayed Response 2023-0 7-10 00:00: 00 Yes [id number] 75mg Q.5D Take 1 tablet (75 mg total) by mouth 2 times daily as needed Alejandra lopez Diclofenac Sodium 75 MG oral Tablet Delayed Response 10-09 00:00: 00 Yes [id number] 75mg Q.5D Take 1 tablet (75 mg total) by mouth 2 times daily as needed Alejandra lopez Diclofenac Sodium 75 MG oral Tablet Delayed Response 10-09 00:00: 00 Yes [id number] 75mg Q.5D Take 1 tablet (75 mg total) by mouth 2 times daily as needed Alejandra lopez Diclofenac Sodium 75 MG oral Tablet Delayed Response 10-09 00:00: 00 01-19 00:00 :00 No [id number] 75mg Q.5D Take 1 tablet (75 mg total) by mouth 2 times daily as needed Alejandra lopez Diclofenac Sodium 75 MG oral Tablet Delayed Response 10-09 00:00: 00 10-09 00:00 :00 No [id number] 75mg Q.5D Take 1 tablet (75 mg total) by mouth 2 times daily as needed Alejandra lopez LOSARTAN POTASSIUM OR 09-08 11:17: 05 09-08 00:00 :00 No Take by mouth Alejandra lopez amLODIPine- Atorvastati n 10-10 MG oral Tablet 09-08 11:08: 49 09-08 00:00 :00 No 1{tbl} Take 1 tablet by mouth daily Alejandra lopez Losartan Potassium (COZAAR) 50 MG oral Tablet 09-08 00:00: 00 Yes [id number] 50mg Take 1 tablet (50 mg total) by mouth daily Alejandra lopez Atorvastati n Calcium 40 MG oral Tablet 09-08 00:00: 00 Yes [id number] 40mg Take 1 tablet (40 mg total) by mouth nightly Alejandra lopez Amlodipine Besylate (Norvasc) 10 MG oral Tablet 09-08 00:00: 00 Yes [id number] 10mg Take 1 tablet (10 mg total) by mouth daily Alejandra Gama - Externa john Losartan Potassium (COZAAR) 50 MG oral Tablet 09-08 00:00: 00 Yes [id number] 50mg Take 1 tablet (50 mg total) by mouth daily Alejandra Gama - Externa l Atorvastati n Calcium 40 MG oral Tablet 09-08 00:00: 00 Yes [id number] 40mg Take 1 tablet (40 mg total) by mouth nightly Alejandra Gama - Externa john Amlodipine Besylate (Norvasc) 10 MG oral Tablet 09-08 00:00: 00 Yes [id number] 10mg Take 1 tablet (10 mg total) by mouth daily Alejandra Gama - Externa john Losartan Potassium (COZAAR) 50 MG oral Tablet 09-08 00:00: 00 Yes [id number] 50mg Take 1 tablet (50 mg total) by mouth daily Alejandra Gama - Externa john Atorvastati n Calcium 40 MG oral Tablet 09-08 00:00: 00 Yes [id number] 40mg Take 1 tablet (40 mg total) by mouth nightly Alejandra Gama - Externa john Amlodipine Besylate (Norvasc) 10 MG oral Tablet 09-08 00:00: 00 Yes [id number] 10mg Take 1 tablet (10 mg total) by mouth daily Alejandra Gama - Externa john Losartan Potassium (COZAAR) 50 MG oral Tablet 09-08 00:00: 00 Yes [id number] 50mg Take 1 tablet (50 mg total) by mouth daily Alejandra Gama - Externa john Atorvastati n Calcium 40 MG oral Tablet 09-08 00:00: 00 Yes [id number] 40mg Take 1 tablet (40 mg total) by mouth nightly Alejandra Gama - Externa john Amlodipine Besylate (Norvasc) 10 MG oral Tablet 09-08 00:00: 00 Yes [id number] 10mg Take 1 tablet (10 mg total) by mouth daily Alejandra Gama - Externa john Losartan Potassium (COZAAR) 50 MG oral Tablet 09-08 00:00: 00 Yes [id number] 50mg Take 1 tablet (50 mg total) by mouth daily Alejandra Gama - Externa john Atorvastati n Calcium 40 MG oral Tablet 09-08 00:00: 00 Yes [id number] 40mg Take 1 tablet (40 mg total) by mouth nightly Alejandra Gama - Externa l Amlodipine Besylate (Norvasc) 10 MG oral Tablet 09-08 00:00: 00 Yes [id number] 10mg Take 1 tablet (10 mg total) by mouth daily Alejandra Gama - Externa john Losartan Potassium (COZAAR) 50 MG oral Tablet 09-08 00:00: 00 Yes [id number] 50mg Take 1 tablet (50 mg total) by mouth daily Alejandra Gama - Externa l Atorvastati n Calcium 40 MG oral Tablet 09-08 00:00: 00 Yes [id number] 40mg Take 1 tablet (40 mg total) by mouth nightly Alejandra Gama - Externa john Amlodipine Besylate (Norvasc) 10 MG oral Tablet 09-08 00:00: 00 Yes [id number] 10mg Take 1 tablet (10 mg total) by mouth daily Alejandra Gama - Externa john Losartan Potassium (COZAAR) 50 MG oral Tablet 09-08 00:00: 00 Yes [id number] 50mg Take 1 tablet (50 mg total) by mouth daily Alejandra Gama - Externa john Atorvastati n Calcium 40 MG oral Tablet 09-08 00:00: 00 Yes [id number] 40mg Take 1 tablet (40 mg total) by mouth nightly Alejandra Gama - Externa john Amlodipine Besylate (Norvasc) 10 MG oral Tablet 09-08 00:00: 00 Yes [id number] 10mg Take 1 tablet (10 mg total) by mouth daily Alejandra Gama - Externa john Losartan Potassium (COZAAR) 50 MG oral Tablet 09-08 00:00: 00 Yes [id number] 50mg Take 1 tablet (50 mg total) by mouth daily Alejandra Gama - Externa l Atorvastati n Calcium 40 MG oral Tablet 09-08 00:00: 00 Yes [id number] 40mg Take 1 tablet (40 mg total) by mouth nightly Alejandra Gama - Externa john Losartan Potassium (COZAAR) 50 MG oral Tablet 09-08 00:00: 00 Yes [id number] 50mg Take 1 tablet (50 mg total) by mouth daily Alejandra Gama - Externa john Atorvastati n Calcium 40 MG oral Tablet 09-08 00:00: 00 Yes [id number] 40mg Take 1 tablet (40 mg total) by mouth nightly Alejandra Gama - Externa john Losartan Potassium (COZAAR) 50 MG oral Tablet 09-08 00:00: 00 Yes [id number] 50mg Take 1 tablet (50 mg total) by mouth daily Alejandra Gama - Externa john Atorvastati n Calcium 40 MG oral Tablet 09-08 00:00: 00 Yes [id number] 40mg Take 1 tablet (40 mg total) by mouth nightly Alejandra Gama - Externa john Losartan Potassium (COZAAR) 50 MG oral Tablet 09-08 00:00: 00 Yes [id number] 50mg Take 1 tablet (50 mg total) by mouth daily Alejandra Gama - Externa john Atorvastati n Calcium 40 MG oral Tablet 09-08 00:00: 00 Yes [id number] 40mg Take 1 tablet (40 mg total) by mouth nightly Alejandra Bright Externa john Amlodipine Besylate (Norvasc) 10 MG oral Tablet 09-08 00:00: 00 Yes [id number] 10mg Take 1 tablet (10 mg total) by mouth daily Alejandra Gama - Externa john Losartan Potassium (COZAAR) 50 MG oral Tablet 09-08 00:00: 00 Yes [id number] 50mg Take 1 tablet (50 mg total) by mouth daily Alejandra Gama - Externa john Atorvastati n Calcium 40 MG oral Tablet 09-08 00:00: 00 Yes [id number] 40mg Take 1 tablet (40 mg total) by mouth nightly Alejandra Gama - Externa john Amlodipine Besylate (Norvasc) 10 MG oral Tablet 09-08 00:00: 00 Yes [id number] 10mg Take 1 tablet (10 mg total) by mouth daily Alejandra lopez Amlodipine Besylate (Norvasc) 10 MG oral Tablet -09 00:00: 00 01-19 00:00 :00 No [id number] 10mg Take 1 tablet (10 mg total) by mouth daily Alejandra lopez Atorvastati n Calcium 40 MG oral Tablet 08-25 00:00: 00 09-08 00:00 :00 No 40mg Take 1 tablet (40 mg total) by mouth nightly Alejandra lopez Pregabalin 75 MG oral Capsule 08-14 00:00: 00 Yes 75mg Take 1 capsule (75 mg total) by mouth daily Alejandra lopez Pregabalin 75 MG oral Capsule 08-14 00:00: 00 Yes 75mg Take 1 capsule (75 mg total) by mouth daily Alejandra lopez gabapentin 300 mg capsule 05-02 00:00: 00 Yes [id number] 300mg Take 1 capsule by mouth in the morning and 1 capsule at noon and 1 capsule in the evening. [facility] methylPREDN ISolone 4 mg tablets 05-02 00:00: 00 Yes [id number] Take by mouth SEE-INSTRU CTIONS. follow package directions [facility] meloxicam (MOBIC) 15 mg tablet 05-02 00:00: 00 Yes [id number] 15mg Take 1 tablet by mouth in the morning. [facility] methocarbam oL 750 mg tablet 05-02 00:00: 00 Yes [id number] 750mg Take 1 tablet by mouth in the morning and 1 tablet in the evening. [facility] gabapentin 300 mg capsule 05-02 00:00: 00 Yes [id number] 300mg Take 1 capsule by mouth in the morning and 1 capsule at noon and 1 capsule in the evening. [facility] methylPREDN ISolone 4 mg tablets 05-02 00:00: 00 Yes [id number] Take by mouth SEE-INSTRU CTIONS. follow package directions [facility] meloxicam (MOBIC) 15 mg tablet 05-02 00:00: 00 Yes [id number] 15mg Take 1 tablet by mouth in the morning. [facility] methocarbam oL 750 mg tablet 05-02 00:00: 00 Yes [id number] 750mg Take 1 tablet by mouth in the morning and 1 tablet in the evening. [facility] gabapentin 300 mg capsule 05-02 00:00: 00 Yes [id number] 300mg Take 1 capsule by mouth in the morning and 1 capsule at noon and 1 capsule in the evening. [facility] methylPREDN ISolone 4 mg tablets 05-02 00:00: 00 Yes [id number] Take by mouth SEE-INSTRU CTIONS. follow package directions [facility] meloxicam (MOBIC) 15 mg tablet 05-02 00:00: 00 Yes [id number] 15mg Take 1 tablet by mouth in the morning. [facility] methocarbam oL 750 mg tablet 05-02 00:00: 00 Yes [id number] 750mg Take 1 tablet by mouth in the morning and 1 tablet in the evening. [facility] gabapentin 300 mg capsule 05-02 00:00: 00 Yes [id number] 300mg Take 1 capsule by mouth in the morning and 1 capsule at noon and 1 capsule in the evening. [facility] methylPREDN ISolone 4 mg tablets 05-02 00:00: 00 Yes [id number] Take by mouth SEE-INSTRU CTIONS. follow package directions [facility] meloxicam (MOBIC) 15 mg tablet 05-02 00:00: 00 Yes [id number] 15mg Take 1 tablet by mouth in the morning. [facility] methocarbam oL 750 mg tablet 05-02 00:00: 00 Yes [id number] 750mg Take 1 tablet by mouth in the morning and 1 tablet in the evening. [facility] gabapentin 300 mg capsule 05-02 00:00: 00 Yes [id number] 300mg Take 1 capsule by mouth in the morning and 1 capsule at noon and 1 capsule in the evening. [facility] methylPREDN ISolone 4 mg tablets 05-02 00:00: 00 Yes [id number] Take by mouth SEE-INSTRU CTIONS. follow package directions [facility] meloxicam (MOBIC) 15 mg tablet 05-02 00:00: 00 Yes [id number] 15mg Take 1 tablet by mouth in the morning. [facility] methocarbam oL 750 mg tablet 05-02 00:00: 00 Yes [id number] 750mg Take 1 tablet by mouth in the morning and 1 tablet in the evening. [facility] gabapentin 300 mg capsule 05-02 00:00: 00 Yes [id number] 300mg Take 1 capsule by mouth in the morning and 1 capsule at noon and 1 capsule in the evening. [facility] methylPREDN ISolone 4 mg tablets 05-02 00:00: 00 Yes [id number] Take by mouth SEE-INSTRU CTIONS. follow package directions [facility] meloxicam (MOBIC) 15 mg tablet 05-02 00:00: 00 Yes [id number] 15mg Take 1 tablet by mouth in the morning. [facility] methocarbam oL 750 mg tablet 05-02 00:00: 00 Yes [id number] 750mg Take 1 tablet by mouth in the morning and 1 tablet in the evening. [facility] gabapentin 300 mg capsule 05-02 00:00: 00 Yes [id number] 300mg Take 1 capsule by mouth in the morning and 1 capsule at noon and 1 capsule in the evening. [facility] methylPREDN ISolone 4 mg tablets 05-02 00:00: 00 Yes [id number] Take by mouth SEE-INSTRU CTIONS. follow package directions [facility] meloxicam (MOBIC) 15 mg tablet 05-02 00:00: 00 Yes [id number] 15mg Take 1 tablet by mouth in the morning. [facility] methocarbam oL 750 mg tablet 05-02 00:00: 00 Yes [id number] 750mg Take 1 tablet by mouth in the morning and 1 tablet in the evening. [facility] gabapentin 300 mg capsule 05-02 00:00: 00 Yes [id number] 300mg Take 1 capsule by mouth in the morning and 1 capsule at noon and 1 capsule in the evening. [facility] methylPREDN ISolone 4 mg tablets 05-02 00:00: 00 Yes [id number] Take by mouth SEE-INSTRU CTIONS. follow package directions [facility] meloxicam (MOBIC) 15 mg tablet 05-02 00:00: 00 Yes [id number] 15mg Take 1 tablet by mouth in the morning. [facility] methocarbam oL 750 mg tablet 05-02 00:00: 00 Yes [id number] 750mg Take 1 tablet by mouth in the morning and 1 tablet in the evening. [facility] gabapentin 300 mg capsule 05-02 00:00: 00 Yes [id number] 300mg Take 1 capsule by mouth in the morning and 1 capsule at noon and 1 capsule in the evening. [facility] methylPREDN ISolone 4 mg tablets 05-02 00:00: 00 Yes [id number] Take by mouth SEE-INSTRU CTIONS. follow package directions [facility] meloxicam (MOBIC) 15 mg tablet 05-02 00:00: 00 Yes [id number] 15mg Take 1 tablet by mouth in the morning. [facility] methocarbam oL 750 mg tablet 05-02 00:00: 00 Yes [id number] 750mg Take 1 tablet by mouth in the morning and 1 tablet in the evening. [facility] gabapentin 300 mg capsule 05-02 00:00: 00 Yes [id number] 300mg Take 1 capsule by mouth in the morning and 1 capsule at noon and 1 capsule in the evening. [facility] methylPREDN ISolone 4 mg tablets 05-02 00:00: 00 Yes [id number] Take by mouth SEE-INSTRU CTIONS. follow package directions [facility] meloxicam (MOBIC) 15 mg tablet 05-02 00:00: 00 Yes [id number] 15mg Take 1 tablet by mouth in the morning. [facility] methocarbam oL 750 mg tablet 05-02 00:00: 00 Yes [id number] 750mg Take 1 tablet by mouth in the morning and 1 tablet in the evening. [facility] gabapentin 300 mg capsule 05-02 00:00: 00 Yes [id number] 300mg Take 1 capsule by mouth in the morning and 1 capsule at noon and 1 capsule in the evening. [facility] methylPREDN ISolone 4 mg tablets 05-02 00:00: 00 Yes [id number] Take by mouth SEE-INSTRU CTIONS. follow package directions [facility] meloxicam (MOBIC) 15 mg tablet 05-02 00:00: 00 Yes [id number] 15mg Take 1 tablet by mouth in the morning. [facility] methocarbam oL 750 mg tablet 05-02 00:00: 00 Yes [id number] 750mg Take 1 tablet by mouth in the morning and 1 tablet in the evening. [facility] gabapentin 300 mg capsule 05-02 00:00: 00 Yes [id number] 300mg Take 1 capsule by mouth in the morning and 1 capsule at noon and 1 capsule in the evening. [facility] methylPREDN ISolone 4 mg tablets 05-02 00:00: 00 Yes [id number] Take by mouth SEE-INSTRU CTIONS. follow package directions [facility] meloxicam (MOBIC) 15 mg tablet 05-02 00:00: 00 Yes [id number] 15mg Take 1 tablet by mouth in the morning. [facility] methocarbam oL 750 mg tablet 05-02 00:00: 00 Yes [id number] 750mg Take 1 tablet by mouth in the morning and 1 tablet in the evening. [facility] gabapentin 300 mg capsule 05-02 00:00: 00 Yes [id number] 300mg Take 1 capsule by mouth in the morning and 1 capsule at noon and 1 capsule in the evening. [facility] methylPREDN ISolone 4 mg tablets 05-02 00:00: 00 Yes [id number] Take by mouth SEE-INSTRU CTIONS. follow package directions [facility] meloxicam (MOBIC) 15 mg tablet 05-02 00:00: 00 Yes [id number] 15mg Take 1 tablet by mouth in the morning. [facility] methocarbam oL 750 mg tablet 05-02 00:00: 00 Yes [id number] 750mg Take 1 tablet by mouth in the morning and 1 tablet in the evening. [facility] gabapentin 300 mg capsule 05-02 00:00: 00 Yes [id number] 300mg Take 1 capsule by mouth in the morning and 1 capsule at noon and 1 capsule in the evening. [facility] methylPREDN ISolone 4 mg tablets 05-02 00:00: 00 Yes [id number] Take by mouth SEE-INSTRU CTIONS. follow package directions [facility] meloxicam (MOBIC) 15 mg tablet 05-02 00:00: 00 Yes [id number] 15mg Take 1 tablet by mouth in the morning. [facility] methocarbam oL 750 mg tablet 05-02 00:00: 00 Yes [id number] 750mg Take 1 tablet by mouth in the morning and 1 tablet in the evening. [facility] gabapentin 300 mg capsule 05-02 00:00: 00 Yes [id number] 300mg Take 1 capsule by mouth in the morning and 1 capsule at noon and 1 capsule in the evening. [facility] methylPREDN ISolone 4 mg tablets 05-02 00:00: 00 Yes [id number] Take by mouth SEE-INSTRU CTIONS. follow package directions [facility] meloxicam (MOBIC) 15 mg tablet 05-02 00:00: 00 Yes [id number] 15mg Take 1 tablet by mouth in the morning. [facility] methocarbam oL 750 mg tablet 05-02 00:00: 00 Yes [id number] 750mg Take 1 tablet by mouth in the morning and 1 tablet in the evening. [facility] gabapentin 300 mg capsule 05-02 00:00: 00 Yes [id number] 300mg Take 1 capsule by mouth in the morning and 1 capsule at noon and 1 capsule in the evening. [facility] methylPREDN ISolone 4 mg tablets 05-02 00:00: 00 Yes [id number] Take by mouth SEE-INSTRU CTIONS. follow package directions [facility] meloxicam (MOBIC) 15 mg tablet 05-02 00:00: 00 Yes [id number] 15mg Take 1 tablet by mouth in the morning. [facility] methocarbam oL 750 mg tablet 05-02 00:00: 00 Yes [id number] 750mg Take 1 tablet by mouth in the morning and 1 tablet in the evening. [facility] gabapentin 300 mg capsule 05-02 00:00: 00 Yes [id number] 300mg Take 1 capsule by mouth in the morning and 1 capsule at noon and 1 capsule in the evening. [facility] methylPREDN ISolone 4 mg tablets 05-02 00:00: 00 Yes [id number] Take by mouth SEE-INSTRU CTIONS. follow package directions [facility] meloxicam (MOBIC) 15 mg tablet 05-02 00:00: 00 Yes [id number] 15mg Take 1 tablet by mouth in the morning. [facility] methocarbam oL 750 mg tablet 05-02 00:00: 00 Yes [id number] 750mg Take 1 tablet by mouth in the morning and 1 tablet in the evening. [facility] gabapentin 300 mg capsule 05-02 00:00: 00 Yes [id number] 300mg Take 1 capsule by mouth in the morning and 1 capsule at noon and 1 capsule in the evening. [facility] methylPREDN ISolone 4 mg tablets 05-02 00:00: 00 Yes [id number] Take by mouth SEE-INSTRU CTIONS. follow package directions [facility] meloxicam (MOBIC) 15 mg tablet 05-02 00:00: 00 Yes [id number] 15mg Take 1 tablet by mouth in the morning. [facility] methocarbam oL 750 mg tablet 05-02 00:00: 00 Yes [id number] 750mg Take 1 tablet by mouth in the morning and 1 tablet in the evening. [facility] gabapentin 300 mg capsule 05-02 00:00: 00 Yes [id number] 300mg Take 1 capsule by mouth in the morning and 1 capsule at noon and 1 capsule in the evening. [facility] methylPREDN ISolone 4 mg tablets 05-02 00:00: 00 Yes [id number] Take by mouth SEE-INSTRU CTIONS. follow package directions [facility] meloxicam (MOBIC) 15 mg tablet 05-02 00:00: 00 Yes [id number] 15mg Take 1 tablet by mouth in the morning. [facility] methocarbam oL 750 mg tablet 05-02 00:00: 00 Yes [id number] 750mg Take 1 tablet by mouth in the morning and 1 tablet in the evening. [facility] methylPREDN ISolone 4 mg tablets 05-02 00:00: 00 Yes [id number] Take by mouth SEE-INSTRU CTIONS. follow package directions [facility] meloxicam (MOBIC) 15 mg tablet 05-02 00:00: 00 Yes [id number] 15mg Take 1 tablet by mouth in the morning. [facility] methylPREDN ISolone 4 mg tablets 05-02 00:00: 00 Yes [id number] Take by mouth SEE-INSTRU CTIONS. follow package directions [facility] meloxicam (MOBIC) 15 mg tablet 05-02 00:00: 00 Yes [id number] 15mg Take 1 tablet by mouth in the morning. [facility] methocarbam oL 750 mg tablet 05-02 00:00: 00 Yes [id number] 750mg Take 1 tablet by mouth in the morning and 1 tablet in the evening. [facility] gabapentin 300 mg capsule 05-02 00:00: 00 Yes [id number] 300mg Take 1 capsule by mouth in the morning and 1 capsule at noon and 1 capsule in the evening. [facility] methocarbam oL 750 mg tablet 05-02 00:00: 00 Yes [id number] 750mg Take 1 tablet by mouth in the morning and 1 tablet in the evening. [facility] gabapentin 300 mg capsule 05-02 00:00: 00 Yes [id number] 300mg Take 1 capsule by mouth in the morning and 1 capsule at noon and 1 capsule in the evening. [facility] methylPREDN ISolone 4 mg tablets 05-02 00:00: 00 Yes [id number] Take by mouth SEE-INSTRU CTIONS. follow package directions [facility] meloxicam (MOBIC) 15 mg tablet 05-02 00:00: 00 Yes [id number] 15mg Take 1 tablet by mouth in the morning. [facility] methocarbam oL 750 mg tablet 05-02 00:00: 00 Yes [id number] 750mg Take 1 tablet by mouth in the morning and 1 tablet in the evening. [facility] gabapentin 300 mg capsule 05-02 00:00: 00 Yes [id number] 300mg Take 1 capsule by mouth in the morning and 1 capsule at noon and 1 capsule in the evening. [facility] methylPREDN ISolone 4 mg tablets 05-02 00:00: 00 Yes [id number] Take by mouth SEE-INSTRU CTIONS. follow package directions [facility] meloxicam (MOBIC) 15 mg tablet 05-02 00:00: 00 Yes [id number] 15mg Take 1 tablet by mouth in the morning. [facility] methocarbam oL 750 mg tablet 05-02 00:00: 00 Yes [id number] 750mg Take 1 tablet by mouth in the morning and 1 tablet in the evening. [facility] gabapentin 300 mg capsule 2023-0 1-31 00:00: 00 Yes [id number] 300mg Take 1 capsule by mouth in the morning and 1 capsule at noon and 1 capsule in the evening. [facility] TAKE 1 TABLET BY MOUTH ONCE DAILY 2022-0 8-29 00:00: 00 No atorvastati n 40 mg tablet 2-0 5-25 00:00: 00 No 1mg amlodipine 10 mg tablet 2-0 5-25 00:00: 00 No 1mg Dose Unknown 2022-0 5-25 00:00: 00 No amlodipine 10 mg tablet 2022-0 3-12 00:00: 00 No 1mg Dose Unknown 2022-0 3-12 00:00: 00 No atorvastati n 40 mg tablet 2-0 3-12 00:00: 00 No 1mg Dose Unknown 2022-0 3-12 00:00: 00 No Dose Unknown 2022-0 3-12 00:00: 00 No Dose Unknown 2022-0 3-12 00:00: 00 No Dose Unknown 2022-0 3-12 00:00: 00 No Dose Unknown 2022-0 3-12 00:00: 00 No Dose Unknown 2022-0 3-12 00:00: 00 No Dose Unknown 2022-0 3-12 00:00: 00 No Dose Unknown 2022-0 3-12 00:00: 00 No Dose Unknown 2022-0 3-12 00:00: 00 No Dose Unknown 2022-0 3-12 00:00: 00 No Dose Unknown 2022-0 3-12 00:00: 00 No Dose Unknown 2022-0 3-12 00:00: 00 No Dose Unknown 2022-0 3-12 00:00: 00 No Dose Unknown 2022-0 3-12 00:00: 00 No Dose Unknown 2022-0 3-12 00:00: 00 No Dose Unknown 2022-0 3-12 00:00: 00 No Dose Unknown 2022-0 3-12 00:00: 00 No Dose Unknown 2022-0 3-12 00:00: 00 No Dose Unknown 2022-0 3-12 00:00: 00 No Dose Unknown 2022-0 3-12 00:00: 00 No Dose Unknown 2022-0 3-12 00:00: 00 No Dose Unknown 2022-0 3-12 00:00: 00 No Dose Unknown 2022-0 3-12 00:00: 00 No Dose Unknown 2022-0 3-12 00:00: 00 No Dose Unknown 2022-0 3-12 00:00: 00 No Dose Unknown 2022-0 3-12 00:00: 00 No Dose Unknown 2022-0 3-12 00:00: 00 No Dose Unknown 2022-0 3-12 00:00: 00 No Dose Unknown 2022-0 3-12 00:00: 00 No Dose Unknown 2022-0 3-12 00:00: 00 No Dose Unknown 2022-0 3-12 00:00: 00 No Dose Unknown 2022-0 3-12 00:00: 00 No Dose Unknown 2022-0 3-12 00:00: 00 No Dose Unknown 2022-0 3-12 00:00: 00 No Dose Unknown 2022-0 3-12 00:00: 00 No Dose Unknown 2022-0 3-12 00:00: 00 No Dose Unknown 2022-0 3-12 00:00: 00 No Dose Unknown 2022-0 3-12 00:00: 00 No Dose Unknown 2022-0 3-12 00:00: 00 No Dose Unknown 2022-0 3-12 00:00: 00 No Dose Unknown 2022-0 3-12 00:00: 00 No Dose Unknown 2022-0 3-12 00:00: 00 No Dose Unknown 2022-0 3-12 00:00: 00 No Dose Unknown 2022-0 3-12 00:00: 00 No Dose Unknown 2022-0 3-12 00:00: 00 No Dose Unknown 2022-0 3-12 00:00: 00 No Dose Unknown 2022-0 3-12 00:00: 00 No Dose Unknown 2022-0 3-12 00:00: 00 No Dose Unknown 2022-0 3-12 00:00: 00 No Dose Unknown 2022-0 3-12 00:00: 00 No Dose Unknown 2022-0 3-12 00:00: 00 No Dose Unknown 2022-0 3-12 00:00: 00 No Dose Unknown 2022-0 3-12 00:00: 00 No Dose Unknown 2022-0 3-12 00:00: 00 No Dose Unknown 2022-0 3-12 00:00: 00 No Dose Unknown 2022-0 3-12 00:00: 00 No Dose Unknown 2022-0 3-12 00:00: 00 No Dose Unknown 2022-0 3-12 00:00: 00 No Dose Unknown 2022-0 3-12 00:00: 00 No Dose Unknown 2022-0 3-12 00:00: 00 No Dose Unknown 2022-0 3-12 00:00: 00 No Dose Unknown 2022-0 3-12 00:00: 00 No Dose Unknown 2022-0 3-12 00:00: 00 No Dose Unknown 2022-0 3-12 00:00: 00 No Dose Unknown 2022-0 3-12 00:00: 00 No Dose Unknown 2022-0 3-12 00:00: 00 No Dose Unknown 2022-0 3-12 00:00: 00 No Dose Unknown 2022-0 3-12 00:00: 00 No Dose Unknown 2022-0 3-12 00:00: 00 No Dose Unknown 2022-0 3-12 00:00: 00 No Dose Unknown 2022-0 3-12 00:00: 00 No Dose Unknown 2022-0 3-12 00:00: 00 No Dose Unknown 2022-0 3-12 00:00: 00 No Dose Unknown 2022-0 3-12 00:00: 00 No Dose Unknown 2022-0 3-12 00:00: 00 No Dose Unknown 1 1-18 00:00: 00 No amlodipine 10 mg tablet 1 18 00:00: 00 No 1mg atorvastati n 40 mg tablet 1 -18 00:00: 00 No 1mg atorvastati n 40 mg tablet 0 8-12 00:00: 00 No 1mg pravastatin 20 mg tablet 0 8 00:00: 00 No 1mg Dose Unknown 10-01 00:00: 00 No cetirizine 5 mg-pseudoep hedrine ER 120 mg tablet,exte nded release,12h r 10-01 00:00: 00 No 1mg prednisone 20 mg tablet 10-01 00:00: 00 No 1mg fluticasone propionate 50 mcg/actuati on nasal spray,suspe nsion 10-01 00:00: 00 No 1mcg/ac tuation amoxicillin 500 mg capsule 10-01 00:00: 00 No 1mg amlodipine 10 mg tablet 10-01 00:00: 00 No 1mg amlodipine 10 mg tablet 10-01 00:00: 00 No 1mg amlodipine 5 mg tablet 12-29 00:00: 00 No 1mg benazepril 20 mg tablet 12-29 00:00: 00 No 1mg naproxen 500 mg tablet 10-28 00:00: 00 No 1mg cyclobenzap rine 10 mg tablet 10-28 00:00: 00 No 1mg amoxicillin 500 mg capsule 11-01 00:00: 00 No 2mg Immunizations Ordered Immunization Name Filled Immunization Name Date Status Comments Source influenza, high-dose, quadrivalent 2021-06-11 00:00:00 Completed Pneumococcal conjugate P 2021-06-11 00:00:00 Completed SARS-COV-2 COVID-19 PFIZER VACCINE 2020-07-13 00:00:00 Completed [facility] SARS-COV-2 COVID-19 PFIZER VACCINE 2020-07-13 00:00:00 Completed [facility] SARS-COV-2 COVID-19 PFIZER VACCINE 2020-07-13 00:00:00 Completed [facility] SARS-COV-2 COVID-19 PFIZER VACCINE 2020-07-13 00:00:00 Completed [facility] SARS-COV-2 COVID-19 PFIZER VACCINE 2020-07-13 00:00:00 Completed [facility] SARS-COV-2 COVID-19 PFIZER VACCINE 2020-07-13 00:00:00 Completed [facility] SARS-COV-2 COVID-19 PFIZER VACCINE 2020-07-13 00:00:00 Completed [facility] SARS-COV-2 COVID-19 PFIZER VACCINE 2020-07-13 00:00:00 Completed [facility] SARS-COV-2 COVID-19 PFIZER VACCINE 2020-07-13 00:00:00 Completed [facility] SARS-COV-2 COVID-19 PFIZER VACCINE 2020-07-13 00:00:00 Completed [facility] SARS-COV-2 COVID-19 PFIZER VACCINE 2020-07-13 00:00:00 Completed [facility] SARS-COV-2 COVID-19 PFIZER VACCINE 2020-07-13 00:00:00 Completed [facility] SARS-COV-2 COVID-19 PFIZER VACCINE 2020-07-13 00:00:00 Completed [facility] SARS-COV-2 COVID-19 PFIZER VACCINE 2020-07-13 00:00:00 Completed [facility] SARS-COV-2 COVID-19 PFIZER VACCINE 2020-07-13 00:00:00 Completed [facility] SARS-COV-2 COVID-19 PFIZER VACCINE 2020-07-13 00:00:00 Completed [facility] SARS-COV-2 COVID-19 PFIZER VACCINE 2020-07-13 00:00:00 Completed [facility] SARS-COV-2 COVID-19 PFIZER VACCINE 2020-07-13 00:00:00 Completed [facility] SARS-COV-2 COVID-19 PFIZER VACCINE 2020-07-13 00:00:00 Completed [facility] SARS-COV-2 COVID-19 PFIZER VACCINE 2020-07-13 00:00:00 Completed [facility] SARS-COV-2 COVID-19 PFIZER VACCINE 2020-07-13 00:00:00 Completed [facility] SARS-COV-2 COVID-19 PFIZER VACCINE 2020-06-22 00:00:00 Completed [facility] SARS-COV-2 COVID-19 PFIZER VACCINE 2020-06-22 00:00:00 Completed [facility] SARS-COV-2 COVID-19 PFIZER VACCINE 2020-06-22 00:00:00 Completed [facility] SARS-COV-2 COVID-19 PFIZER VACCINE 2020-06-22 00:00:00 Completed [facility] SARS-COV-2 COVID-19 PFIZER VACCINE 2020-06-22 00:00:00 Completed [facility] SARS-COV-2 COVID-19 PFIZER VACCINE 2020-06-22 00:00:00 Completed [facility] SARS-COV-2 COVID-19 PFIZER VACCINE 2020-06-22 00:00:00 Completed [facility] SARS-COV-2 COVID-19 PFIZER VACCINE 2020-06-22 00:00:00 Completed [facility] SARS-COV-2 COVID-19 PFIZER VACCINE 2020-06-22 00:00:00 Completed [facility] SARS-COV-2 COVID-19 PFIZER VACCINE 2020-06-22 00:00:00 Completed [facility] SARS-COV-2 COVID-19 PFIZER VACCINE 2020-06-22 00:00:00 Completed [facility] SARS-COV-2 COVID-19 PFIZER VACCINE 2020-06-22 00:00:00 Completed [facility] SARS-COV-2 COVID-19 PFIZER VACCINE 2020-06-22 00:00:00 Completed [facility] SARS-COV-2 COVID-19 PFIZER VACCINE 2020-06-22 00:00:00 Completed [facility] SARS-COV-2 COVID-19 PFIZER VACCINE 2020-06-22 00:00:00 Completed [facility] SARS-COV-2 COVID-19 PFIZER VACCINE 2020-06-22 00:00:00 Completed [facility] SARS-COV-2 COVID-19 PFIZER VACCINE 2020-06-22 00:00:00 Completed [facility] SARS-COV-2 COVID-19 PFIZER VACCINE 2020-06-22 00:00:00 Completed [facility] SARS-COV-2 COVID-19 PFIZER VACCINE 2020-06-22 00:00:00 Completed [facility] SARS-COV-2 COVID-19 PFIZER VACCINE 2020-06-22 00:00:00 Completed [facility] SARS-COV-2 COVID-19 PFIZER VACCINE 2020-06-22 00:00:00 Completed [facility] SARS-COV-2 COVID-19 PFIZER VACCINE Unknown Completed [facility] SARS-COV-2 COVID-19 PFIZER VACCINE Unknown Completed [facility] SARS-COV-2 COVID-19 PFIZER VACCINE Unknown Completed [facility] SARS-COV-2 COVID-19 PFIZER VACCINE Unknown Completed [facility] Influenza Virus Vaccine, Quadrivalent, High Dose, Age 65 And Up Unknown Completed Laejandra S eybold - External Pneumococcal Vaccine, Conjugate 13 Unknown Completed Alejandra Seybold - External Influenza Virus Vaccine, Quadrivalent, High Dose, Age 65 And Up Unknown Completed Alejandra S eybold - External Pneumococcal Vaccine, Conjugate 13 Unknown Completed Alejandra Seybold - External Influenza Virus Vaccine, Quadrivalent, High Dose, Age 65 And Up Unknown Completed Alejandra S eybold - External Pneumococcal Vaccine, Conjugate 13 Unknown Completed Alejandra Seybold - External Influenza Virus Vaccine, Quadrivalent, High Dose, Age 65 And Up Unknown Completed Alejandra S eybold - External Pneumococcal Vaccine, Conjugate 13 Unknown Completed Alejandra Seybold - External Influenza Virus Vaccine, Quadrivalent, High Dose, Age 65 And Up Unknown Completed Alejandra S eybold - External Pneumococcal Vaccine, Conjugate 13 Unknown Completed Alejandra Seybold - External Influenza Virus Vaccine, Quadrivalent, High Dose, Age 65 And Up Unknown Completed Alejandra S eybold - External Pneumococcal Vaccine, Conjugate 13 Unknown Completed Alejandra Seybold - External Influenza Virus Vaccine, Quadrivalent, High Dose, Age 65 And Up Unknown Completed Alejandra S eybold - External Pneumococcal Vaccine, Conjugate 13 Unknown Completed Alejandra Seybold - External Influenza Virus Vaccine, Quadrivalent, High Dose, Age 65 And Up Unknown Completed Alejandra S eybold - External Pneumococcal Vaccine, Conjugate 13 Unknown Completed Alejandra Seybold - External Vital Signs Vital Name Observation Time Observation Value Comments S ource Systolic blood pressure 2023-04-12 21:37:00 148 mm[Hg] [facility] Diastolic blood pressure 2023-04-12 21:37:00 94 mm[Hg] [facility] Heart rate 2023-04-12 21:37:00 89 /min [facility] Body temperature 2023-04-12 21:37:00 36.61 [place] [facility] Respiratory rate 2023-04-12 21:37:00 16 /min [facility] Body weight 2023-04-12 21:37:00 68.04 kg [facility] BMI 2023-04-12 21:37:00 23.49 kg/m2 [facility] Oxygen saturation in Arterial blood by Pulse oximetry 2023-04-12 21:37:00 98 /min [facility] Systolic blood pressure 2023-02-13 22:57:00 135 mm[Hg] [facility] Diastolic blood pressure 2023-02-13 22:57:00 70 mm[Hg] [facility] Heart rate 2023-02-13 22:57:00 94 /min [facility] Body temperature 2023-02-13 22:57:00 36.89 [place] [facility] Respiratory rate 2023-02-13 22:57:00 17 /min [facility] Oxygen saturation in Arterial blood by Pulse oximetry 2023-02-13 22:57:00 97 /min [facility] Body height 2023-02-13 19:28:00 170.2 cm [facility] Body weight 2023-02-13 19:28:00 68.04 kg [facility] BMI 2023-02-13 19:28:00 23.49 kg/m2 [facility] Systolic blood pressure 2023-01-19 18:09:00 112 mm[Hg] Alejandra Seybo ld - External Diastolic blood pressure 2023-01-19 18:09:00 62 mm[Hg] Alejandra Seybo ld - External Heart rate 2023-01-19 18:09:00 84 /min Kelse y Seybold - External Body temperature 2023-01-19 18:09:00 36.56 [place] Alejandra Seybold - External Respiratory rate 2023-01-19 18:09:00 18 /min Alejandra Seybold - External Body height 2023-01-19 18:09:00 180.3 cm Precious ey Seybold - External Body weight 2023-01-19 18:09:00 68.04 kg Precious ey Seybold - External BMI 2023-01-19 18:09:00 20.92 kg/m2 Precious ey Seybold - External Oxygen saturation in Arterial blood by Pulse oximetry 2023-01-19 18:09:00 96 /min Alejandra Seybo ld - External Systolic blood pressure 2022-12-27 16:03:00 114 mm[Hg] Alejandra Seybo ld - External Diastolic blood pressure 2022-12-27 16:03:00 69 mm[Hg] Alejandra Seybo ld - External Heart rate 2022-12-27 16:03:00 86 /min Kelse y Seybold - External Body temperature 2022-12-27 16:03:00 37.22 [place] Alejandra Seybold - External Respiratory rate 2022-12-27 16:03:00 16 /min Alejandra Seybold - External Body height 2022-12-27 16:03:00 180.3 cm Precious ey Seybold - External Oxygen saturation in Arterial blood by Pulse oximetry 2022-12-27 16:03:00 99 /min Alejandra Seybo ld - External Systolic blood pressure 2022-12-26 13:27:00 121 mm[Hg] Alejandra Seybo ld - External Diastolic blood pressure 2022-12-26 13:27:00 76 mm[Hg] Alejandra Seybo ld - External Heart rate 2022-12-26 13:27:00 91 /min Erickse y Seybold - External Body temperature 2022-12-26 13:27:00 36.67 [place] Alejandra Seybold - External Respiratory rate 2022-12-26 13:27:00 17 /min Alejandra Seybold - External Body height 2022-12-26 13:27:00 180.3 cm Precious ey Seybold - External Body weight 2022-12-26 13:27:00 68.04 kg Precious ey Seybold - External BMI 2022-12-26 13:27:00 20.92 kg/m2 Precious ey Seybold - External Oxygen saturation in Arterial blood by Pulse oximetry 2022-12-26 13:27:00 99 /min Alejandra Seybo ld - External Systolic blood pressure 2022-12-22 21:25:00 122 mm[Hg] Alejandra Seybo ld - External Diastolic blood pressure 2022-12-22 21:25:00 65 mm[Hg] Alejandra Seybo ld - External Heart rate 2022-12-22 21:25:00 89 /min Kelse y Seybold - External Body temperature 2022-12-22 21:25:00 37.06 Albertina Alejandra Seybold - External Respiratory rate 2022-12-22 21:25:00 15 /min Alejandra Seybold - External Body height 2022-12-22 21:25:00 180.3 cm Precious ey Seybold - External Body weight 2022-12-22 21:25:00 68.04 kg Precious ey Seybold - External BMI 2022-12-22 21:25:00 20.92 kg/m2 Precious ey Seybold - External Oxygen saturation in Arterial blood by Pulse oximetry 2022-12-22 21:25:00 99 /min Alejandra Seybo ld - External Body height 2022-12-01 14:32:00 180.3 cm Precious ey Seybold - External Body weight 2022-12-01 14:32:00 68.04 kg Precious ey Seybold - External BMI 2022-12-01 14:32:00 20.92 kg/m2 Precious ey Seybold - External Body height 2022-11-16 14:47:00 177.8 cm Precious ey Seybold - External Body weight 2022-11-16 14:47:00 68.493 kg Precious ey Seybold - External BMI 2022-11-16 14:47:00 21.67 kg/m2 Precious ey Seybold - External Systolic blood pressure 2022-10-09 15:21:00 124 mm[Hg] Alejandra Seybo ld - External Diastolic blood pressure 2022-10-09 15:21:00 64 mm[Hg] Alejandra Seybo ld - External Heart rate 2022-10-09 15:21:00 91 /min Tamra y Seybold - External Body temperature 2022-10-09 15:21:00 36 Albertina Alejandra Seybold - External Respiratory rate 2022-10-09 15:21:00 20 /min Alejandra Seybold - External Body height 2022-10-09 15:21:00 170.2 cm Precious ey Seybold - External Body weight 2022-10-09 15:21:00 70.308 kg Precious ey Seybold - External BMI 2022-10-09 15:21:00 24.28 kg/m2 Precious ey Seybold - External Oxygen saturation in Arterial blood by Pulse oximetry 2022-10-09 15:21:00 100 /min Alejandra Seybo ld - External Systolic blood pressure 2022-09-08 15:53:00 152 mm[Hg] Alejandra Seybo ld - External Diastolic blood pressure 2022-09-08 15:53:00 84 mm[Hg] Alejandra Burnetto ld - External Heart rate 2022-09-08 15:53:00 87 /min Tamra Gama - External Body temperature 2022-09-08 15:53:00 36.61 Albertina Alejandra Krugerybold - External Respiratory rate 2022-09-08 15:53:00 15 /min Alejandra Krugerybold - External Body height 2022-09-08 15:53:00 170.2 cm Precious jarrell Seybkelly - External Body weight 2022-09-08 15:53:00 68.04 kg Precious jarrell Seybold - External BMI 2022-09-08 15:53:00 23.49 kg/m2 Precious Gama - External Oxygen saturation in Arterial blood by Pulse oximetry 2022-09-08 15:53:00 99 /min Alejandra Jenkins ld - External Systolic blood pressure 2022-06-28 20:00:00 122 mm[Hg] [facility] Diastolic blood pressure 2022-06-28 20:00:00 88 mm[Hg] [facility] Heart rate 2022-06-28 20:00:00 69 /min [facility] Respiratory rate 2022-06-28 20:00:00 20 /min [facility] Oxygen saturation in Arterial blood by Pulse oximetry 2022-06-28 20:00:00 100 /min [facility] Body temperature 2022-06-28 16:57:00 36.5 Albertina [facility] Body weight 2022-06-28 16:57:00 68.493 kg [facility] BMI 2022-06-28 16:57:00 23.65 kg/m2 [facility] Systolic blood pressure 2022-06-22 14:08:00 131 mm[Hg] [facility] Diastolic blood pressure 2022-06-22 14:08:00 83 mm[Hg] [facility] Heart rate 2022-06-22 14:08:00 74 [facility] Body temperature 2022-06-22 14:08:00 36.11 [facility] Body height 2022-06-22 14:08:00 170.2 cm [facility] Body weight 2022-06-22 14:08:00 68.493 kg [facility] BMI 2022-06-22 14:08:00 23.65 kg/m2 [facility] Systolic blood pressure 2022-06-22 14:08:00 131 mm[Hg] [facility] Diastolic blood pressure 2022-06-22 14:08:00 83 mm[Hg] [facility] Heart rate 2022-06-22 14:08:00 74 /[facility] 2022-06-22 14:08:00 36.11 [facility] Body height 2022-06-22 14:08:00 170.2 cm [facility] Body weight 2022-06-22 14:08:00 68.493 kg [facility] BMI 2022-06-22 14:08:00 23.65 kg/m2 [facility] Systolic blood pressure 2022-06-22 14:08:00 131 mm[Hg] [facility] Diastolic blood pressure 2022-06-22 14:08:00 83 mm[Hg] [facility] Heart rate 2022-06-22 14:08:00 74 /min [facility] Body temperature 2022-06-22 14:08:00 36.11 [facility] Body height 2022-06-22 14:08:00 170.2 cm [facility] Body weight 2022-06-22 14:08:00 68.493 [facility] BMI 2022-06-22 14:08:00 23.65 kg/m2 [facility] Systolic blood pressure 2022-06-22 14:08:00 131 mm[Hg] [facility] Diastolic blood pressure 2022-06-22 14:08:00 83 mm[Hg] [facility] Heart rate 2022-06-22 14:08:00 74 /min [facility] Body temperature 2022-06-22 14:08:00 36.11 Albertina [facility] Body height 2022-06-22 14:08:00 170.2 cm [facility] Body weight 2022-06-22 14:08:00 68.493 kg [facility] BMI 2022-06-22 14:08:00 23.65 kg/m2 [facility] Systolic blood pressure 2022-05-02 19:59:00 121 mm[Hg] [facility] Diastolic blood pressure 2022-05-02 19:59:00 68 mm[Hg] [facility] Heart rate 2022-05-02 19:59:00 71 /min [facility] Body temperature 2022-05-02 19:59:00 35.78 Albertina [facility] Body weight 2022-05-02 19:59:00 68.901 kg [facility] BP Systolic 2022-03-11 13:36:00 126 mm[Hg] BP [...] Procedures Procedure Date / Time Performed Performing Clinicia n Source BASIC METABOLIC PANEL (NA, K, CL, CO2, GLUCOSE, BUN, CREATININE, CA) 2023-04-12 22:18:00 Harvinder William [facility] CBC WITH DIFF 2023-04-12 22:18:00 Harvinder William [facility] CONSENT/REFUSAL FOR DIAGNOSIS AND TREATMENT 2023-04-12 21:32:07 Doctor Unassigned, [place] [facility] ASSIGNMENT OF BENEFITS 2023-02-13 22:23:31 Docto r Unassigned, [place] [facility] AC PANEL 21 + LACTIC ACID 2023-02-13 21:58:00 Anaid [facility] TROPONIN I 2023-02-13 21:57:00 Jesus Alberto Worrell [facility] HEPATIC FUNCTION PANEL (80633) (ALB,T.PRO,BILI T,BU/BC,ALT,AST,ALK PHOS) 2023-02-13 21:57:00 Anaid [facility] BASIC METABOLIC PANEL (NA, K, CL, CO2, GLUCOSE, BUN, CREATININE, CA) 2023-02-13 21:57:00 Anaid [facility] CBC WITH DIFF 2023-02-13 21:57:00 Anaid [facility] N-TERMINAL PRO-BNP 2023-02-13 21:57:00 Susan Worrell [facility] XR CHEST 1 VW 2023-02-13 20:47:32 Anaid [facility] CONSENT/REFUSAL FOR DIAGNOSIS AND TREATMENT 2023-02-13 19:23:45 Doctor Unassigned, [place] [facility] CERVICAL SPINE - 2 VIEW 2022-11-16 16:22:30 Krystle Cruz Seybold - External XR CHEST 2 VW 2022-06-28 18:26:23 Adal Ta [facility] XR NECK SOFT TISSUE 2022-06-28 18:26:23 Kortney Ta [facility] TROPONIN I 2022-06-28 18:10:00 Adal Ta [facility] COMP. METABOLIC PANEL (96242) 2022-06-28 18:10:00 Adal Ta [facility] CBC WITH DIFF 2022-06-28 18:10:00 Adal Ta [facility] N-TERMINAL PRO-BNP 2022-06-28 18:10:00 Adal Ta [facility] COVID-19 (ID NOW RAPID TESTING) 2022-06-28 18:10:00 Adal Ta [facility] NOTICE OF PRIVACY PRACTICES 2022-06-28 16:56:56 Doctor Unassigned, [place] [facility] CONSENT/REFUSAL FOR DIAGNOSIS AND TREATMENT 2022-06-28 16:52:21 Doctor Unassigned, [place] [facility] CONSENT/REFUSAL FOR DIAGNOSIS AND TREATMENT 2022-06-22 13:51:24 Doctor Unassigned, [place] [facility] EXTERNAL PROVIDER RECORDS 2022-05-31 06:01:00 Doctor Unassigned, [place] [facility] Plan of Care Planned Activity Planned Date Details Comments Source Goal Plan of Care Note [code = 10492-9] Goal Plan of Care Note [code = 82298-2] Goal Plan of Care Note [code = 56672-9] Goal Plan of Care Note [code = 02089-8] Goal Plan of Care Note [code = 99065-4] Goal Plan of Care Note [code = 42131-3] Goal Plan of Care Note [code = 68107-7] Goal Plan of Care Note [code = 11314-2] Goal Plan of Care Note [code = 13411-4] Goal Plan of Care Note [code = 16767-0] Goal Plan of Care Note [code = 80482-3] Goal Plan of Care Note [code = 56513-0] Goal Plan of Care Note [code = 42944-9] Goal Plan of Care Note [code = 76172-0] Goal Plan of Care Note [code = 93023-6] Goal Plan of Care Note [code = 43427-2] Goal Plan of Care Note [code = 54366-6] Goal Plan of Care Note [code = 09905-6] Goal Plan of Care Note [code = 67851-5] Goal Plan of Care Note [code = 88040-6] Goal Plan of Care Note [code = 13784-7] Encounters Start Date/Time End Date/Time Encounter Type Admission Type Attending Clinicians Care Facility Care Department Encounter ID Source 2022-10-19 13:45:24 Outpatient [facility] [id number] [facility] 2023-05-11 10:00:00 2023-05-11 10:00:00 Outpatient ABIMAEL MARIN [facility] [id number] [facility] 2023-04-25 13:15:00 2023-04-25 13:15:00 Outpatient KRYSTLE CRUZ ALEJANDRA DUVAL [id number] [facility] 2023-04-12 15:40:00 2023-04-12 17:48:00 Emergency X HARVINDER WILLIAM [facility] ERT [id number] [facility] 2023-04-12 15:40:00 2023-04-12 17:48:00 Emergency Nataliia Seanconnie Allen [facility] [id number] 350.1.13.10 4.2.7.2.686 [id number] [facility] 2023-02-13 13:33:00 2023-02-13 17:12:00 Emergency X CHAPINCITOPARISH Fuentes [facility] ERT [id number] [facility] 2023-02-13 13:33:00 2023-02-13 17:12:00 Emergency Regina fuentes [facility] [id number] 350.1.13.10 4.2.7.2.686 [id number] [facility] 2023-02-13 10:00:00 2023-02-13 10:00:00 Outpatient AMADO LJFranky DUVAL [id number] [facility] 2023-02-12 00:00:00 2023-02-12 00:00:00 Outpatient EUNICE HERCULES [id number] [facility] 2023-02-10 00:00:00 2023-02-10 00:00:00 Outpatient EUNICE HERCULES [id number] [facility] 2023-02-05 11:15:00 2023-02-05 11:15:00 Outpatient EUNICE HERCULES [id number] [facility] 2023-01-29 00:00:00 2023-01-29 00:00:00 Outpatient CLARA SAVAGE [id number] [facility] 2023-01-26 09:00:00 2023-01-26 09:00:00 Outpatient HANANE KRYSTA DUVAL [id number] Alejandra Seybold 2023-01-26 08:00:00 2023-01-26 08:00:00 Outpatient NEWLAW MARS ALEJANDRA [id number] [facility] 2023-01-26 00:00:00 2023-01-26 00:00:00 Outpatient PREZAS, EUNICE ALEJANDRA ALEJANDRA [id number] [facility] 2023-01-24 13:15:00 2023-01-24 13:15:00 Outpatient NEWLAW MARS ALEJANDRA DUVAL [id number] [facility] 2023-01-24 00:00:00 2023-01-24 00:00:00 Outpatient PREZAS, EUNICE DUVAL ALEJANDRA [id number] [facility] 2023-01-22 00:00:00 2023-01-22 00:00:00 Outpatient PREZAS, EUNICE TREJOBROOKE DUVAL [id number] [facility] 2023-01-22 00:00:00 2023-01-22 00:00:00 Outpatient PREZAS, EUNICE TREJOBROOKE DUVAL [id number] [facility] 2023-01-19 13:15:00 2023-01-19 13:15:00 Outpatient PREZAS, EUNICE DUVAL ALEJANDRA [id number] [facility] 2023-01-18 13:00:00 2023-01-18 13:00:00 Outpatient KRYSTA KOO ALEJANDRA DUVAL [id number] Alejandra Seybold 2023-01-18 00:00:00 2023-01-18 00:00:00 Outpatient PREZAS, EUNICE ALEJANDRA DUVAL [id number] Alejandra Seybold 2023-01-10 13:30:00 2023-01-10 13:30:00 Outpatient CLARA SAVAGE [id number] [facility] 2023-01-09 10:45:00 2023-01-09 10:45:00 Outpatient EUNICE HERCULES [id number] [facility] 2023-01-09 00:00:00 2023-01-09 00:00:00 Outpatient [facility] [id number] [facility]23-[facility]-05 00:00:00 2023-01-05 00:00:00 Outpatient GILLES OLVIIAEBENEZER DUVAL [id number] [facility] 2023-01-04 00:00:00 2023-01-04 00:00:00 Outpatient OLIVIA CAMPOVERDE [id number] [facility] 2023-01-04 00:00:00 2023-01-04 00:00:00 Outpatient OLIVIA CAMPOVERDE [id number] [facility] 2023-01-03 14:00:00 2023-01-03 14:00:00 Outpatient CLARA SAVAGE [id number] [facility] 2023-01-02 13:30:00 2023-01-02 13:30:00 Outpatient EUNICE HERCULES [id number] [facility] 2023-01-02 10:00:00 2023-01-02 10:00:00 Outpatient CLARA SAVAGE [id number] [facility] 2023-01-02 10:00:00 2023-01-02 10:00:00 Outpatient ROGER PARSON [id number] [facility] 2023-01-02 00:00:00 2023-01-02 00:00:00 Outpatient OLIVIA CAMPOVERDE [id number] [facility] 2023-01-02 00:00:00 2023-01-02 00:00:00 Outpatient KRYSTA KOO [id number] [facility] 2023-01-01 00:00:00 2023-01-01 00:00:00 Outpatient EUNICE HERCULES [id number] [facility] 2022-12-28 00:00:00 2022-12-28 00:00:00 Outpatient CLARA SAVAGE [id number] [facility] 2022-12-28 00:00:00 2022-12-28 00:00:00 Outpatient DANNIELLEERIC BLEVINSEBENEZER DUVAL [id number] Alejandra Seybold 2022-12-27 10:30:00 2022-12-27 10:30:00 Outpatient CLARA SAVAGE [id number] [facility] 2022-12-27 09:00:00 2022-12-27 09:00:00 Outpatient GILLES OLIVIA DUVAL [id number] [facility] 2022-12-27 00:00:00 2022-12-27 00:00:00 Outpatient DANNIELLEGEN OLIVIA DUVAL [id number] [facility] 2022-12-27 00:00:00 2022-12-27 00:00:00 Outpatient DANNIELLEGEN OLIVIA DUVAL [id number] [facility] 2022-12-26 15:00:00 2022-12-26 15:00:00 Outpatient MICHAELA ROBISON [id number] [facility] Seybold 2022-12-26 08:15:00 2022-12-26 08:15:00 Outpatient CLARA SAVAGE [id number] [facility] 2022-12-26 00:00:00 2022-12-26 00:00:00 Outpatient CLARA SAVAGE [id number] Alejandra Seybold 2022-12-22 16:45:00 2022-12-22 16:45:00 Outpatient PREEUNICE GONZALEZ [id number] [facility]bold 2022-12-18 00:00:00 2022-12-18 00:00:00 Outpatient EUNICE HERCULES [id number] [facility]andra [facility]bold 2022-12-15 00:00:00 2022-12-15 00:00:00 Outpatient EUNICE HERCULES [id number] Alejandra Seybold 2022-12-15 00:00:00 2022-12-15 00:00:00 Outpatient EUNICE HERCULES ALEJANDRA DUVAL [id number] [facility] 2022-12-14 10:30:00 2022-12-14 10:30:00 Outpatient MATTHEW SAVAGENTE ALEJANDRA DUVAL [id number] [facility]22-[facility]-13 00:00:00 2022-12-13 00:00:00 Outpatient SAVAGECLARA [id number] [facility] 2022-12-11 00:00:00 2022-12-11 00:00:00 Outpatient PREZAEUNICE Kuhn ALEJANDRA DUVAL [id number] [facility] 2022-12-11 00:00:00 2022-12-11 00:00:00 Outpatient PREZAEUNICE Kuhn ALEJANDRA DUVAL [id number] [facility] 2022-12-11 00:00:00 2022-12-11 00:00:00 Outpatient EUNICE HERCULES ALEJANDRA DUVAL [id number] [facility] 2022-12-01 08:30:00 2022-12-01 08:30:00 Outpatient KRYSTLE CRUZ ALEJANDRA DUVAL [id number] [facility] 2022-11-28 13:00:00 2022-11-28 13:00:00 Outpatient ALEJANDRA DUVAL [id number] [facility] 2022-11-24 11:45:00 2022-11-24 11:45:00 Outpatient ALEJANDRA DUVAL [id number] [facility] 2022-11-24 10:15:00 2022-11-24 10:15:00 Outpatient GARYSARAH ALEJANDRA DUVAL [id number] [facility] 2022-11-24 00:00:00 2022-11-24 00:00:00 Outpatient EUNICE HERCULES ALEJANDRA DUVAL [id number] [facility] 2022-11-22 11:00:00 2022-11-22 11:00:00 Outpatient ALEJANDRA DUVAL [id number] [facility] 2022-11-17 11:00:00 2022-11-17 11:00:00 Outpatient ALEJANDRA DUVAL [id number] Alejandra Gama 2022-11-16 13:05:00 2022-11-16 13:05:00 Outpatient ALEJANDRA DUVAL [id number] Alejnadra Krugerkelly 2022-11-16 13:00:00 2022-11-16 13:00:00 Outpatient ALEJANDRA DUVAL [id number] [facility] 2022-[facility]-16 10:50:00 2022-11-16 10:50:00 Outpatient ALEJANDRA DUVAL [id number] Alejandra Krugerkelly 2022-11-16 09:30:00 2022-11-16 09:30:00 Outpatient CRUZ, JULIANEYU ALEJANDRA DUVAL [id number] [facility] 2022-11-07 00:00:00 2022-11-07 00:00:00 Outpatient PREZAS, EUNICE ALEJANDRA DUVAL [id number] [facility] 2022-10-10 00:00:00 2022-10-10 00:00:00 Outpatient PREZAS, EUNICE ALEJANDRA ALEJANDRA [id number] [facility] 2022-10-10 00:00:00 2022-10-10 00:00:00 Outpatient PREZAS, EUNICE ALEJANDRA DUVAL [id number] [facility] 2022-10-09 11:30:00 2022-10-09 11:30:00 Outpatient LABMady ALEJANDRA DUVAL [id number] [facility] 2022-10-09 10:45:00 2022-10-09 10:45:00 Outpatient PREZAS, EUNICE ALEJANDRA DUVAL [id number] [facility] 2022-10-06 00:00:00 2022-10-06 00:00:00 Outpatient PREZAS, EUNICE ALEJANDRA DUVAL [id number] [facility] 2022-10-02 14:02:00 2022-10-02 19:23:00 [facility] [address] [facility] 2022-10-02 15:45:00 2022-10-02 15:45:00 Outpatient PREZAS, EUNICE ALEJANDRA DUVAL [id number] [facility] 2022-09-28 00:00:00 2022-09-28 00:00:00 Outpatient PREZAS, EUNICE DUVAL [id number] Alejandra Gama 2022-09-12 00:00:00 2022-09-12 00:00:00 Outpatient PREZAS, EUNICE DUVAL [id number] Alejandra Gama 2022-09-12 00:00:00 2022-09-12 00:00:00 Outpatient PREZAS, EUNICE DUVAL [id number] Alejandra Krugerkelly 2022-09-12 00:00:00 2022-09-12 00:00:00 Outpatient PREZAS, EUNICE DUVAL [id number] [facility] 2022-09-11 00:00:00 2022-09-11 00:00:00 Outpatient PREZAS, EUNICE DUVAL [id number] Alejandra Krugerkelly 2022-09-11 00:00:00 2022-09-11 00:00:00 Outpatient PREZAS, EUNICE DUVAL [id number] [facility] 2022-09-08 11:30:00 2022-09-08 11:30:00 Outpatient LAB90 ALEJANDRA DUVAL [id number] [facility] 2022-09-08 10:30:00 2022-09-08 10:30:00 Outpatient PREZAS, EUNICE DUVAL [id number] [facility] 2022-08-25 17:29:35 2022-08-25 17:29:35 Outpatient SFA SFA [id number] Howie Garcia 2022-07-13 17:46:00 2022-07-17 18:36:00 Inpatient E SYLVIA STARK [id number] 2022-07-17 00:00:00 2022-07-17 00:00:00 Miguel Loya [facility] 1.2.840.114 350.1.13.10 4.2.7.2.686 [id number] [facility] 2022-07-13 09:30:00 2022-07-13 09:30:00 Outpatient R MIGUEL SHELTON IDJOSEPH IDMB [id number] [facility] 2022-06-29 00:00:00 2022-06-29 00:00:00 Telephone Nikita [facility] 1..840.114 350.1.13.10 4.2.7.2.686 [id number] [facility] 2022-06-28 11:58:00 2022-06-28 15:57:00 Emergency X ADAL TA [facility] ERT [id number] [facility] 2022-06-28 11:58:00 2022-06-28 15:57:00 Emergency Adal Ta [facility] 1..840.114 350.1.13.10 4.2.7.2.686 [id number] [facility] 2022-06-28 11:58:00 2022-06-28 15:57:00 Emergency X ADAL TA [facility] ERT [id number] [facility] 2022-06-27 00:00:00 2022-06-27 00:00:00 Telephone Yeimidarek [facility] [place] [facility] 1..840.114 350.1.13.10 4.2.7.2.686 [id number] [facility] 2022-06-22 08:45:00 2022-06-22 10:25:40 Outpatient R NIKITA [facility] [id number] [facility] 2022-06-22 08:45:00 2022-06-22 10:25:40 Office Visit Nikita [facility] 1..840.114 350.1.13.10 4.2.7.2.686 [id number] [facility] 2022-06-22 08:45:00 2022-06-22 10:25:40 [id number] 2022-06-22 08:45:00 2022-06-22 10:25:40 Office Visit Yeiminaar [facility] 1.2840.114 350.1.13.10 4.2.7.2.686 [id number] [facility] 2022-06-22 00:00:00 2022-06-22 00:00:00 Orders Only Doctor Unassigned, [place] [facility] 1.2840.114 350.1.13.10 4.2.7.2.686 [id number] [facility] 2022-06-06 00:00:00 2022-06-06 00:00:00 Telephone Cameron Mercado [facility] 1.2840.114 350.1.13.10 4.2.7.2.686 [id number] [facility] 2022-05-31 00:00:00 2022-05-31 00:00:00 Orders Only Doctor Unassigned, [place] [facility] 1.2840.114 350.1.13.10 4.2.7.2.686 [id number] [facility] 2022-05-30 00:00:00 2022-05-30 00:00:00 Telephone Cameron Mercado [facility] [place] [facility] 1.2840.114 350.1.13.10 4.2.7.2.686 [id number] [facility] 2022-05-26 15:49:01 2022-05-26 15:49:01 Outpatient [facility] [id number] Howie Jovani Jose 2022-05-25 00:00:00 2022-05-25 00:00:00 Telephone Cameron Mercado [facility] 1.2840.114 350.1.13.10 4.2.7.2.686 [id number] [facility] 2022-05-22 00:00:00 2022-05-22 00:00:00 Telephone Cameron Mercado [facility] [id number] 350.1.13.10 4.2.7.2.686 [id number] [facility] 2022-05-22 00:00:00 2022-05-22 00:00:00 Telephone Cameron Mercado [facility] 1.2840.114 350.1.13.10 4.2.7.2.686 [id number] [facility] 2022-05-05 00:00:00 2022-05-05 00:00:00 Outpatient CAMERON ISBELL [facility] [id number] [facility] 2022-05-05 00:00:00 2022-05-05 00:00:00 Outpatient CAMERON ISBELL [facility] [id number] [facility] 2022-05-05 00:00:00 2022-05-05 00:00:00 Telephone Cameron Mercado [facility] 1.2840.114 350.1.13.10 4.2.7.2.686 [id number] [facility] [facility] 2022-05-02 14:07:28 2022-05-02 23:59:00 Hospital Encounter Cameron Mercado [facility] [id number] 350.1.13.10 [id number] [id number] [facility] 2022-05-02 14:07:13 2022-05-02 23:59:00 Hospital Encounter JessCameron [facility] [id number] 350.1.13.10 [id number] [id number] [facility] 2022-05-02 13:50:00 2022-05-02 15:25:31 Office Visit JessCameron [facility] 1.2.840.114 350.1.13.10 4.2.7.2.686 [id number] [facility] 2022-05-02 14:07:07 2022-05-02 14:06:00 Outpatient R CAMERON MERCADO [facility] [id number] [facility] 2022-05-02 14:05:00 2022-05-02 14:06:00 Hospital Encounter Cameron Mercado [facility] [place] [facility] 1.2.840.114 350.1.13.10 [id number] [id number] [facility] 2022-03-11 13:26:46 2022-03-11 13:26:46 Outpatient [facility] [address] Jose 2022-03-11 00:00:00 2022-03-11 00:00:00 Outpatient Visit [id number] 2022-02-20 14:10:30 2022-02-20 14:10:30 Outpatient [facility] [address] F Jose 2022-01-27 14:24:08 2022-01-27 14:24:08 Outpatient [facility] 10[address] Howie Jovani Jose 2022-01-25 16:04:52 2022-01-25 16:04:52 Outpatient [facility] 10[address] Howie Jovani Jose Results Test Description Test Time Test Comments Results Result Co mments Source [facility] WITH [id number] 23:08:49* Test Item Value Reference Range Interpretation Comme nts WBC (test code = 6690-2) 9.29 See_Comment [Automated messa ge] The system which generated this result transmitted reference range: 4.20 - 10.70 10*3/?L. The reference range was not used to interpret this result as normal/abnormal. RBC (test code = 789-8) 3.92 See_Comment L [Automated messa ge] The system which generated this result transmitted reference range: 4.26 - 5.52 10*6/?L. The reference range was not used to interpret this result as normal/abnormal. HGB (test code = 718-7) 12.9 g/dL 12.2-16.4 HCT (test code = 4544-3) 37.8 % 38.4-49.3 L MCV (test code = 787-2) 96.4 fL 81.7-95.6 H MCH (test code = 785-6) 32.9 pg 26.1-32.7 H MCHC (test code = 786-4) 34.1 g/dL 31.2-35.0 RDW-SD (test code = 73972-5) 46.5 fL 38.5-51.6 RDW-CV (test code = 788-0) 13.1 % 12.1-15.4 PLT (test code = 777-3) 285 See_Comment [Automated messa ge] The system which generated this result transmitted reference range: 150 - 328 10*3/?L. The reference range was not used to interpret this result as normal/abnormal. MPV (test code = 64485-7) 10.2 fL 9.8-13.0 NRBC/100 WBC (test code = 9854898025) 0.0 See_Comment [Automated [employer] ssage] The system which generated this result transmitted reference range: 0.0 - 10.0 /100 WBCs. The reference range was not used to interpret this result as normal/abnormal. NRBC x10^3 (test code = 7628806628) See_Comment [Automated messa ge] The system which generated this result transmitted reference range: 10*3/?L. The reference range was not used to interpret this result as normal/abnormal. GRAN MAT (NEUT) % (test code = 770-8) 47.5 % IMM GRAN % (test code = 1999196964) 0.30 % LYMPH % (test code = 736-9) 33.5 % MONO % (test code = 5905-5) 9.8 % EOS % (test code = 713-8) 8.3 % BASO % (test code = 706-2) 0.6 % GRAN MAT x10^3(ANC) (test code = 3108763367) 4.41 10*3/uL 1.99-6.95 IMM GRAN x10^3 (test code = 1931042663) 0.03 10*3/uL 0.00-0.06 LYMPH x10^3 (test code = 731-0) 3.11 10*3/uL 1.09-3.23 MONO x10^3 (test code = 742-7) 0.91 10*3/uL 0.36-1.02 EOS x10^3 (test code = 711-2) 0.77 10*3/uL 0.06-0.53 H BASO x10^3 (test code = 704-7) 0.06 10*3/uL 0.01-0.09 Lab Interpretation (test code = 87116-8) Abnormal [facility] + LACTIC [id number] 22:09:01* Test Item Value Reference Range Interpretation Comme nts PH (test code = 4662410061) 7.40 7.32-7.42 PCO2 ENIO (test code = 1250701412) 41 See_Comment [Automated messa ge] The system which generated this result transmitted reference range: 41 - 51 mmHg. The reference range was not used to interpret this result as normal/abnormal. PO2 ENIO (test code = 2307925441) 40 See_Comment [Automated messa ge] The system which generated this result transmitted reference range: 25 - 40 mmHg. The reference range was not used to interpret this result as normal/abnormal. HCO3 ENIO (test code = 4627046232) 25 See_Comment [Automated messa ge] The system which generated this result transmitted reference range: 24 - 28 mEq/L. The reference range was not used to interpret this result as normal/abnormal. AC VBE(BEAKER) (test code = 4427847345) 0.1 mEq/L THB ENIO (test code = 3987384448) 12.0 g/dL 13.5-18.0 L %O2HB ENIO (test code = 2271303292) 71.0 % 52.0-63.0 H %COHB ENIO (test code = 1983712482) 3.6 % 0.0-1.5 H %METHB ENIO (test code = 1623165892) 0.0 % 0.4-1.5 L VOL%O2 ENIO (test code = 1517047187) 12.0 % 6.0-12.0 NA (test code = 4519505144) 139 mmol/L 135-145 K+ (test code = 5749483120) 4.0 mmol/L 3.5-5.0 AC CA IONZ (test code = 5482506954) 4.80 mg/dL 4.50-5.30 GLUCOSE (test code = 9499835350) 97 mg/dL 70-110 LACTIC ACID (test code = 2816822313) 1.72 mmol/L 0.50-2.20 Lab Interpretation (test code = 59754-0) Abnormal [facility]AUTO [id number] 00:00:00* Test Item Value Reference Range Interpretation Comme [...] = 1015) 233 K/UL ABSOLUTE NEUTROPHILS (test c ode = 1066) 4.14 K/UL ABSOLUTE LYMPHOCYTES (test c ode = 1067) 2.80 K/UL ABSOLUTE MONOCYTES (test cod e = 1068) 0.97 K/UL ABSOLUTE EOSINOPHILS (test c ode = 1040) 0.93 K/UL ABSOLUTE BASOPHILS (test cod e = 1069) 0.07 K/UL ABS IMMATURE GRANULOCYTES (t est code = 1020) 0.02 K/UL ABS NUCLEATED RBCS (test cod e = 83812) 0.00 K/UL CBC W/AUTO [id number] 00:00:00* Test Item Value Reference Range Interpretation Comme [...] = 1015) 233 K/UL ABSOLUTE NEUTROPHILS (test c ode = 1066) 4.14 K/UL ABSOLUTE LYMPHOCYTES (test c ode = 1067) 2.80 K/UL ABSOLUTE MONOCYTES (test cod e = 1068) 0.97 K/UL ABSOLUTE EOSINOPHILS (test c ode = 1040) 0.93 K/UL ABSOLUTE BASOPHILS (test cod e = 1069) 0.07 K/UL ABS IMMATURE GRANULOCYTES (t est code = 1020) 0.02 K/UL ABS NUCLEATED RBCS (test cod e = 81311) 0.00 K/UL CBC W/AUTO [id number] 00:00:00* Test Item Value Reference Range Interpretation Comme [...] = 1015) 233 K/UL ABSOLUTE NEUTROPHILS (test c ode = 1066) 4.14 K/UL ABSOLUTE LYMPHOCYTES (test c ode = 1067) 2.80 K/UL ABSOLUTE MONOCYTES (test cod e = 1068) 0.97 K/UL ABSOLUTE EOSINOPHILS (test c ode = 1040) 0.93 K/UL ABSOLUTE BASOPHILS (test cod e = 1069) 0.07 K/UL ABS IMMATURE GRANULOCYTES (t est code = 1020) 0.02 K/UL ABS NUCLEATED RBCS (test cod e = 26380) 0.00 K/UL HEMOGLOBIN [id number] 00:00:00* Test Item Value Reference Range Interpretation Comme nts HEMOGLOBIN A1c (test code = 15620) 5.9 % HEMOGLOBIN [id number] 00:00:00* Test Item Value Reference Range Interpretation Comme nts HEMOGLOBIN A1c (test code = 21425) 5.9 % HEMOGLOBIN [id number] 00:00:00* Test Item Value Reference Range Interpretation Comme nts HEMOGLOBIN A1c (test code = 52157) 5.9 % LIPID [id number] 00:00:00* Test Item Value Reference Range Interpretation Comme nts CHOLESTEROL (test code = 2210) 130 MG/DL TRIGLYCERIDES (test code = 2232) 207 MG/DL HDL CHOLESTEROL (test code = 2220) 47 MG/DL CALC LDL CHOL (test code = 2237) 56 MG/DL RISK RATIO LDL/HDL (test cod e = 2238) 1.19 RATIO LIPID [id number] 00:00:00* Test Item Value Reference Range Interpretation Comme nts CHOLESTEROL (test code = 2210) 130 MG/DL TRIGLYCERIDES (test code = 2232) 207 MG/DL HDL CHOLESTEROL (test code = 2220) 47 MG/DL CALC LDL CHOL (test code = 2237) 56 MG/DL RISK RATIO LDL/HDL (test cod e = 2238) 1.19 RATIO COMPREHENSIVE METABOLIC [id number] 00:00:00* Test Item Value Reference Range Interpretation Comme nts GLUCOSE (test code = 2217) 114 MG/DL BUN (test code = 2208) 12 MG/DL CREATININE (test code = 2214) 0.69 MG/DL eGFR (2020 CKD-EPI) (test code = 03935) 105 ML/MIN/1.73 CALC BUN/CREAT (test code = 2235) 17 RATIO SODIUM (test code = 2231) 143 MEQ/L POTASSIUM (test code = 2228) 4.3 MEQ/L CHLORIDE (test code = 2215) 109 MEQ/L CARBON DIOXIDE (test code = 2206) 23 MEQ/L CALCIUM (test code = 2209) 9.3 MG/DL PROTEIN, TOTAL (test code = 2229) 7.1 G/DL ALBUMIN (test code = 2201) 4.8 G/DL CALC GLOBULIN (test code = 2240) 2.3 G/DL CALC A/G RATIO (test code = 2234) 2.1 RATIO BILIRUBIN, TOTAL (test code = 2207) <0.2 MG/DL ALKALINE PHOSPHATASE (test code = 2204) 95 U/L AST (test code = 2218) 26 U/L ALT (test code = 2219) 18 U/L COMPREHENSIVE METABOLIC [id number] 00:00:00* Test Item Value Reference Range Interpretation Comme nts GLUCOSE (test code = 2217) 114 MG/DL BUN (test code = 2208) 12 MG/DL CREATININE (test code = 2214) 0.69 MG/DL eGFR (2020 CKD-EPI) (test code = 70745) 105 ML/MIN/1.73 CALC BUN/CREAT (test code = 2235) 17 RATIO SODIUM (test code = 2231) 143 MEQ/L POTASSIUM (test code = 2228) 4.3 MEQ/L CHLORIDE (test code = 2215) 109 MEQ/L CARBON DIOXIDE (test code = 2206) 23 MEQ/L CALCIUM (test code = 2209) 9.3 MG/DL PROTEIN, TOTAL (test code = 2229) 7.1 G/DL ALBUMIN (test code = 2201) 4.8 G/DL CALC GLOBULIN (test code = 2240) 2.3 G/DL CALC A/G RATIO (test code = 2234) 2.1 RATIO BILIRUBIN, TOTAL (test code = 2207) <0.2 MG/DL ALKALINE PHOSPHATASE (test code = 2204) 95 U/L AST (test code = 2218) 26 U/L ALT (test code = 2219) 18 U/L PSA, [id number] 01:31:10* Test Item Value Reference Range Interpretation Comme nts PSA, TOTAL (test code = 2606) 0.99 NG/ML See_Comment NOTE: Methodolog y is Eulogio Jerry Electrochemiluminescence Immunoassay traceable to WHO reference standard 96/760. UNLESS OTHERWISE INDICATED, ALL TESTING PERFORMED [facility] [employer] [address] [place] [address] STITCHER FEEDER: JERAD SERRANO M.D. CLIA NUMBER [id number] [place]. [id number] [Automated message] The system which generated this result transmitted reference range: <=4.00. The reference range was not used to interpret this result as normal/abnormal. LIPID [id number] 00:11:50* Test Item Value Reference Range Interpretation Comme nts CHOLESTEROL (test code = 2210) 158 MG/DL <200 TRIGLYCERIDES (test code = 2232) 70 MG/DL <150 HDL CHOLESTEROL (test code = 2220) 59 MG/DL >39 CALC LDL CHOL (test code = 2237) 84 MG/DL <100 NOTE: CALCULATED LDL IS BASED ON BIJAL-ROCA METHOD WHICHINCLUDES ADJUSTABLE TRIGLYCERIDE:VLDL CHOLESTEROL RATIO.THIS FACTOR VARIES BY MEASURED TRIGLYCERIDE AND NON-HDLCHOLESTEROL CONCENTRATIONS WITH INCREASED CALCULATED LDL SEENIN HIGHER TRIGLYCERIDE OR LOWER NON-HDL SPECIMENS. FOR MOREINFORMATION, SEE CLIENT ANNOUNCEMENT AT [email or web address] RISK RATIO LDL/HDL (test code = 2238) 1.42 RATIO <3.55 COMPREHENSIVE METABOLIC [id number] 00:11:50* Test Item Value Reference Range Interpretation Comme nts GLUCOSE (test code = 2217) 106 MG/DL 70-99 H BUN (test code = 2207) 14 MG/DL 8-23 CREATININE (test code = 2213) 0.75 MG/DL 0.80-1.40 L eGFR (2020 CKD-EPI) (test code = 90962) 103 ML/MIN/1.73 >60 CALC BUN/CREAT (test code = 2235) 19 RATIO 6-28 SODIUM (test code = 223) 141 MEQ/L 133-146 POTASSIUM (test code = 2227) 4.5 MEQ/L 3.5-5.4 CHLORIDE (test code = 221) 104 MEQ/L 95-107 CARBON DIOXIDE (test code = 2205) 23 MEQ/L 19-31 CALCIUM (test code = 2208) 9.4 MG/DL 8.5-10.5 PROTEIN, TOTAL (test code = 2228) 7.1 G/DL 6.1-8.3 ALBUMIN (test code = 2200) 4.6 G/DL 3.5-5.2 CALC GLOBULIN (test code = 2239) 2.5 G/DL 1.9-3.7 CALC A/G RATIO (test code = 2233) 1.8 RATIO 1.0-2.6 BILIRUBIN, TOTAL (test code = 2206) 0.5 MG/DL See_Comment [Automated me ssage] The system which generated this result transmitted reference range: <=1.2. The reference range was not used to interpret this result as normal/abnormal. ALKALINE PHOSPHATASE (test code = 2203) 83 U/L 40-123 AST (test code = 2217) 18 U/L 9-50 ALT (test code = 2219) 11 U/L 5-50 LIPID [id number] 00:00:00* Test Item Value Reference Range Interpretation Comme nts CHOLESTEROL (test code = 2210) 158 MG/DL TRIGLYCERIDES (test code = 2232) 70 MG/DL HDL CHOLESTEROL (test code = 2220) 59 MG/DL CALC LDL CHOL (test code = 2237) 84 MG/DL RISK RATIO LDL/HDL (test cod e = 2238) 1.42 RATIO LIPID [id number] 00:00:00* Test Item Value Reference Range Interpretation Comme nts CHOLESTEROL (test code = 2210) 158 MG/DL TRIGLYCERIDES (test code = 2232) 70 MG/DL HDL CHOLESTEROL (test code = 2220) 59 MG/DL CALC LDL CHOL (test code = 2237) 84 MG/DL RISK RATIO LDL/HDL (test cod e = 2238) 1.42 RATIO COMPREHENSIVE METABOLIC [id number] 00:00:00* Test Item Value Reference Range Interpretation Comme nts GLUCOSE (test code = 2217) 106 MG/DL BUN (test code = 2208) 14 MG/DL CREATININE (test code = 2214) 0.75 MG/DL eGFR (2020 CKD-EPI) (test code = 95500) 103 ML/MIN/1.73 CALC BUN/CREAT (test code = 2235) 19 RATIO SODIUM (test code = 2231) 141 MEQ/L POTASSIUM (test code = 2228) 4.5 MEQ/L CHLORIDE (test code = 2215) 104 MEQ/L CARBON DIOXIDE (test code = 2206) 23 MEQ/L CALCIUM (test code = 2209) 9.4 MG/DL PROTEIN, TOTAL (test code = 2229) 7.1 G/DL ALBUMIN (test code = 2201) 4.6 G/DL CALC GLOBULIN (test code = 2240) 2.5 G/DL CALC A/G RATIO (test code = 2234) 1.8 RATIO BILIRUBIN, TOTAL (test code = 2207) 0.5 MG/DL ALKALINE PHOSPHATASE (test code = 2204) 83 U/L AST (test code = 2218) 18 U/L ALT (test code = 2219) 11 U/L COMPREHENSIVE METABOLIC [id number] 00:00:00* Test Item Value Reference Range Interpretation Comme nts GLUCOSE (test code = 2217) 106 MG/DL BUN (test code = 2208) 14 MG/DL CREATININE (test code = 2214) 0.75 MG/DL eGFR (2020 CKD-EPI) (test code = 46457) 103 ML/MIN/1.73 CALC BUN/CREAT (test code = 2235) 19 RATIO SODIUM (test code = 2231) 141 MEQ/L POTASSIUM (test code = 2228) 4.5 MEQ/L CHLORIDE (test code = 2215) 104 MEQ/L CARBON DIOXIDE (test code = 2206) 23 MEQ/L CALCIUM (test code = 2209) 9.4 MG/DL PROTEIN, TOTAL (test code = 2229) 7.1 G/DL ALBUMIN (test code = 2201) 4.6 G/DL CALC GLOBULIN (test code = 2240) 2.5 G/DL CALC A/G RATIO (test code = 2234) 1.8 RATIO BILIRUBIN, TOTAL (test code = 2207) 0.5 MG/DL ALKALINE PHOSPHATASE (test code = 2204) 83 U/L AST (test code = 2218) 18 U/L ALT (test code = 2219) 11 U/L PSA, [id number] 00:00:00* Test Item Value Reference Range Interpretation Comme nts PSA, TOTAL (test code = 2606) 0.99 NG/ML PSA, [id number] 00:00:00* Test Item Value Reference Range Interpretation Comme nts PSA, TOTAL (test code = 2606) 0.99 NG/ML PSA, [id number] 00:00:00* Test Item Value Reference Range Interpretation Comme nts PSA, TOTAL (test code = 2606) 0.99 NG/ML CBC W/AUTO DIFF WITH [id number] 05:34:29* Test Item Value Reference Range Interpretation Comme nts WBC (test code = 1001) 9.5 K/UL 3.5-11.0 RBC (test code = 1002) 4.35 M/UL 4.50-6.10 L HEMOGLOBIN (test code = 1003) 13.8 G/DL 13.5-17.0 HEMATOCRIT (test code = 1004) 40.1 % 40.0-51.0 MCV (test code = 1005) 92.2 fL 80.0-99.0 MCH (test code = 1006) 31.7 PG 25.0-33.0 MCHC (test code = 1007) 34.4 G/DL 31.0-36.0 RDW (test code = 1038) 13.4 % 11.5-15.0 NEUTROPHILS (test code = 1008) 43.8 % LYMPHOCYTES (test code = 1010) 37.1 % MONOCYTES (test code = 1011) 7.4 % EOSINOPHILS (test code = 1012) 10.9 % BASOPHILS (test code = 1013) 0.6 % IMMATURE GRANULOCYTES (test code = 1036) 0.2 % NUCLEATED RBCS (test code = 1065) 0.0 /100 WBC'S See_Comment [Automated messa ge] The system which generated this result transmitted reference range: 0.0. The reference range was not used to interpret this result as normal/abnormal. PLATELET COUNT (test code = 1015) 293 K/UL 130-400 ABSOLUTE NEUTROPHILS (test code = 1066) 4.14 K/UL 1.50-7.50 ABSOLUTE LYMPHOCYTES (test code = 1067) 3.51 K/UL 1.00-4.00 ABSOLUTE MONOCYTES (test code = 1068) 0.70 K/UL 0.20-1.00 ABSOLUTE EOSINOPHILS (test code = 1040) 1.03 K/UL 0.00-0.50 H ABSOLUTE BASOPHILS (test code = 1069) 0.06 K/UL 0.00-0.20 ABS IMMATURE GRANULOCYTES (test code = 1020) 0.02 K/UL 0.00-0.10 ABS NUCLEATED RBCS (test code = 58365) 0.00 K/UL 0.00-0.11 HEMOGLOBIN [id number] 04:28:13* Test Item Value Reference Range Interpretation Comme nts HEMOGLOBIN A1c (test code = 34461) 5.6 % 4.2-5.6 CBC W/AUTO [id number] 00:00:00* Test Item Value Reference Range Interpretation Comme nts WBC (test code = 1001) 9.5 K/UL [...] = 1013) 0.6 % IMMATURE GRANULOCYTES (test code = 1036) 0.2 % NUCLEATED RBCS (test code = 1065) 0.0 /100WBC'S PLATELET COUNT (test code = 1015) 293 K/UL ABSOLUTE NEUTROPHILS (test c ode = 1066) 4.14 K/UL ABSOLUTE LYMPHOCYTES (test c ode = 1067) 3.51 K/UL ABSOLUTE MONOCYTES (test cod e = 1068) 0.70 K/UL ABSOLUTE EOSINOPHILS (test c ode = 1040) 1.03 K/UL ABSOLUTE BASOPHILS (test cod e = 1069) 0.06 K/UL ABS IMMATURE GRANULOCYTES (t est code = 1020) 0.02 K/UL ABS NUCLEATED RBCS (test cod e = 66394) 0.00 K/UL CBC W/AUTO [id number] 00:00:00* Test Item Value Reference Range Interpretation Comme nts WBC (test code = 1001) 9.5 K/UL [...] = 1013) 0.6 % IMMATURE GRANULOCYTES (test code = 1036) 0.2 % NUCLEATED RBCS (test code = 1065) 0.0 /100WBC'S PLATELET COUNT (test code = 1015) 293 K/UL ABSOLUTE NEUTROPHILS (test c ode = 1066) 4.14 K/UL ABSOLUTE LYMPHOCYTES (test c ode = 1067) 3.51 K/UL ABSOLUTE MONOCYTES (test cod e = 1068) 0.70 K/UL ABSOLUTE EOSINOPHILS (test c ode = 1040) 1.03 K/UL ABSOLUTE BASOPHILS (test cod e = 1069) 0.06 K/UL ABS IMMATURE GRANULOCYTES (t est code = 1020) 0.02 K/UL ABS NUCLEATED RBCS (test cod e = 62310) 0.00 K/UL CBC W/AUTO [id number] 00:00:00* Test Item Value Reference Range Interpretation Comme nts WBC (test code = 1001) 9.5 K/UL [...] = 1013) 0.6 % IMMATURE GRANULOCYTES (test code = 1036) 0.2 % NUCLEATED RBCS (test code = 1065) 0.0 /100WBC'S PLATELET COUNT (test code = 1015) 293 K/UL ABSOLUTE NEUTROPHILS (test c ode = 1066) 4.14 K/UL ABSOLUTE LYMPHOCYTES (test c ode = 1067) 3.51 K/UL ABSOLUTE MONOCYTES (test cod e = 1068) 0.70 K/UL ABSOLUTE EOSINOPHILS (test c ode = 1040) 1.03 K/UL ABSOLUTE BASOPHILS (test cod e = 1069) 0.06 K/UL ABS IMMATURE GRANULOCYTES (t est code = 1020) 0.02 K/UL ABS NUCLEATED RBCS (test cod e = 42976) 0.00 K/UL HEMOGLOBIN [id number] 00:00:00* Test Item Value Reference Range Interpretation Comme nts HEMOGLOBIN A1c (test code = 95543) 5.6 % HEMOGLOBIN [id number] 00:00:00* Test Item Value Reference Range Interpretation Comme nts HEMOGLOBIN A1c (test code = 51046) 5.6 % HEMOGLOBIN [id number] 00:00:00* Test Item Value Reference Range Interpretation Comme nts HEMOGLOBIN A1c (test code = 15687) 5.6 % LIPID [id number] 00:00:00* Test Item Value Reference Range Interpretation Comme nts CHOLESTEROL (test code = 2210) 178 MG/DL TRIGLYCERIDES (test code = 2232) 126 MG/DL HDL CHOLESTEROL (test code = 2220) 41 MG/DL CALC LDL CHOL (test code = 2237) 113 MG/DL RISK RATIO LDL/HDL (test cod e = 2238) 2.76 RATIO LIPID [id number] 00:00:00* Test Item Value Reference Range Interpretation Comme nts CHOLESTEROL (test code = 2210) 178 MG/DL TRIGLYCERIDES (test code = 2232) 126 MG/DL HDL CHOLESTEROL (test code = 2220) 41 MG/DL CALC LDL CHOL (test code = 2237) 113 MG/DL RISK RATIO LDL/HDL (test cod e = 2238) 2.76 RATIO CBC W/AUTO [id number] 00:00:00* Test Item Value Reference Range Interpretation Comme nts WBC (test code = 1001) 9.7 K/UL [...] /100WBC'S PLATELET COUNT (test code = 1015) 286 K/UL ABSOLUTE NEUTROPHILS (test c ode = 1066) 4.02 K/UL ABSOLUTE LYMPHOCYTES (test c ode = 1067) 4.03 K/UL ABSOLUTE MONOCYTES (test cod e = 1068) 0.78 K/UL ABSOLUTE EOSINOPHILS (test c ode = 1040) 0.79 K/UL ABSOLUTE BASOPHILS (test cod e = 1069) 0.08 K/UL ABS IMMATURE GRANULOCYTES (t est code = 1020) 0.02 K/UL ABS NUCLEATED RBCS (test cod e = 19854) 0.00 K/UL CBC W/AUTO [id number] 00:00:00* Test Item Value Reference Range Interpretation Comme nts WBC (test code = 1001) 9.7 K/UL [...] /100WBC'S PLATELET COUNT (test code = 1015) 286 K/UL ABSOLUTE NEUTROPHILS (test c ode = 1066) 4.02 K/UL ABSOLUTE LYMPHOCYTES (test c ode = 1067) 4.03 K/UL ABSOLUTE MONOCYTES (test cod e = 1068) 0.78 K/UL ABSOLUTE EOSINOPHILS (test c ode = 1040) 0.79 K/UL ABSOLUTE BASOPHILS (test cod e = 1069) 0.08 K/UL ABS IMMATURE GRANULOCYTES (t est code = 1020) 0.02 K/UL ABS NUCLEATED RBCS (test cod e = 68081) 0.00 K/UL CBC W/AUTO [id number] 00:00:00* Test Item Value Reference Range Interpretation Comme nts WBC (test code = 1001) 9.7 K/UL [...] /100WBC'S PLATELET COUNT (test code = 1015) 286 K/UL ABSOLUTE NEUTROPHILS (test c ode = 1066) 4.02 K/UL ABSOLUTE LYMPHOCYTES (test c ode = 1067) 4.03 K/UL ABSOLUTE MONOCYTES (test cod e = 1068) 0.78 K/UL ABSOLUTE EOSINOPHILS (test c ode = 1040) 0.79 K/UL ABSOLUTE BASOPHILS (test cod e = 1069) 0.08 K/UL ABS IMMATURE GRANULOCYTES (t est code = 1020) 0.02 K/UL ABS NUCLEATED RBCS (test cod e = 33154) 0.00 K/UL CBC W/AUTO [id number] 00:00:00* Test Item Value Reference Range Interpretation Comme nts WBC (test code = 1001) 10.6 K/UL [...] code = 1015) 269 K/UL CBC W/AUTO [id number] 00:00:00* Test Item Value Reference Range Interpretation Comme nts WBC (test code = 1001) 10.6 K/UL [...] code = 1015) 269 K/UL CBC W/AUTO [id number] 00:00:00* Test Item Value Reference Range Interpretation Comme nts WBC (test code = 1001) 10.6 K/UL [...] (test code = 1015) 269 K/UL HEMOGLOBIN [id number] 00:00:00* Test Item Value Reference Range Interpretation Comme nts HEMOGLOBIN A1c (test code = 61543) 6.0 % HEMOGLOBIN [id number] 00:00:00* Test Item Value Reference Range Interpretation Comme nts HEMOGLOBIN A1c (test code = 73006) 6.0 % HEMOGLOBIN [id number] 00:00:00* Test Item Value Reference Range Interpretation Comme nts HEMOGLOBIN A1c (test code = 91041) 6.0 % TROPONIN T [ADDED]2020-07-02 00:00:00* Test Item Value Reference Range Interpretation Comme nts TROPONIN T (test code = 4017) <0.010 UG/L TROPONIN T [ADDED]2020-07-02 00:00:00* Test Item Value Reference Range Interpretation Comme nts TROPONIN T (test code = 4017) <0.010 UG/L TROPONIN T [ADDED]2020-06-24 00:00:00* Test Item Value Reference Range Interpretation Comme nts TROPONIN T (test code = 4017) TEST NOT PERFORMED UG/L TROPONIN T [ADDED]2020-06-24 00:00:00* Test Item Value Reference Range Interpretation Comme nts TROPONIN T (test code = 4017) TEST NOT PERFORMED UG/L CBC W/AUTO [id number] 00:00:00* Test Item Value Reference Range Interpretation Comme nts WBC (test code = 1001) TEST NOT PERFORME D K/UL RBC (test code = 1002) TEST NOT PERFORME D M/UL HEMOGLOBIN (test code = 1003) TEST NOT PERFORMED G/DL HEMATOCRIT (test code = 1004) TEST NOT PERFORMED % MCV (test code = 1005) TEST NOT PERFORMED fL MCH (test code = 1006) TEST NOT PERFORMED PG MCHC (test code = 1007) TEST NOT PERFORM ED G/DL RDW (test code = 1038) TEST NOT PERFORMED % NEUTROPHILS (test code = 1008) TEST NOT PERFORMED % LYMPHOCYTES (test code = 1010) TEST NOT PERFORMED % MONOCYTES (test code = 1011) TEST NOT PERFORMED % EOSINOPHILS (test code = 1012) TEST NOT PERFORMED % BASOPHILS (test code = 1013) TEST NOT PERFORMED % PLATELET COUNT (test code = 1015) TEST NOT PERFORMED K/UL CBC W/AUTO [id number] 00:00:00* Test Item Value Reference Range Interpretation Comme nts WBC (test code = 1001) TEST NOT PERFORME D K/UL RBC (test code = 1002) TEST NOT PERFORME D M/UL HEMOGLOBIN (test code = 1003) TEST NOT PERFORMED G/DL HEMATOCRIT (test code = 1004) TEST NOT PERFORMED % MCV (test code = 1005) TEST NOT PERFORMED fL MCH (test code = 1006) TEST NOT PERFORMED PG MCHC (test code = 1007) TEST NOT PERFORM ED G/DL RDW (test code = 1038) TEST NOT PERFORMED % NEUTROPHILS (test code = 1008) TEST NOT PERFORMED % LYMPHOCYTES (test code = 1010) TEST NOT PERFORMED % MONOCYTES (test code = 1011) TEST NOT PERFORMED % EOSINOPHILS (test code = 1012) TEST NOT PERFORMED % BASOPHILS (test code = 1013) TEST NOT PERFORMED % PLATELET COUNT (test code = 1015) TEST NOT PERFORMED K/UL CBC W/AUTO [id number] 00:00:00* Test Item Value Reference Range Interpretation Comme nts WBC (test code = 1001) TEST NOT PERFORME D K/UL RBC (test code = 1002) TEST NOT PERFORME D M/UL HEMOGLOBIN (test code = 1003) TEST NOT PERFORMED G/DL HEMATOCRIT (test code = 1004) TEST NOT PERFORMED % MCV (test code = 1005) TEST NOT PERFORMED fL MCH (test code = 1006) TEST NOT PERFORMED PG MCHC (test code = 1007) TEST NOT PERFORM ED G/DL RDW (test code = 1038) TEST NOT PERFORMED % NEUTROPHILS (test code = 1008) TEST NOT PERFORMED % LYMPHOCYTES (test code = 1010) TEST NOT PERFORMED % MONOCYTES (test code = 1011) TEST NOT PERFORMED % EOSINOPHILS (test code = 1012) TEST NOT PERFORMED % BASOPHILS (test code = 1013) TEST NOT PERFORMED % PLATELET COUNT (test code = 1015) TEST NOT PERFORMED K/UL HEMOGLOBIN [id number] 00:00:00* Test Item Value Reference Range Interpretation Comme nts HEMOGLOBIN A1c (test code = 13366) TEST NOT PERFORMED % HEMOGLOBIN [id number] 00:00:00* Test Item Value Reference Range Interpretation Comme nts HEMOGLOBIN A1c (test code = 97496) TEST NOT PERFORMED % HEMOGLOBIN [id number] 00:00:00* Test Item Value Reference Range Interpretation Comme nts HEMOGLOBIN A1c (test code = 87230) TEST NOT PERFORMED % COMPREHENSIVE METABOLIC [id number] 00:00:00* Test Item Value Reference Range Interpretation Comme nts GLUCOSE (test code = 2217) 103 MG/DL BUN (test code = 2208) 13 MG/DL CREATININE (test code = 2214) 0.73 MG/DL eGFR AMER. (test cod e = 38765) 117 ML/MIN/1.73 eGFR NON- AMER. (test code = 20580) 101 ML/MIN/1.73 CALC BUN/CREAT (test code = 2235) 18 RATIO SODIUM (test code = 2231) 139 MEQ/L POTASSIUM (test code = 2228) 4.4 MEQ/L CHLORIDE (test code = 2215) 106 MEQ/L CARBON DIOXIDE (test code = 2206) 22 MEQ/L CALCIUM (test code = 2209) 9.1 MG/DL PROTEIN, TOTAL (test code = 2229) 7.3 G/DL ALBUMIN (test code = 2201) 4.7 G/DL CALC GLOBULIN (test code = 2240) 2.6 G/DL CALC A/G RATIO (test code = 2234) 1.8 RATIO BILIRUBIN, TOTAL (test code = 2207) 0.4 MG/DL ALKALINE PHOSPHATASE (test code = 2204) 79 U/L AST (test code = 2218) 18 U/L ALT (test code = 2219) 13 U/L COMPREHENSIVE METABOLIC [id number] 00:00:00* Test Item Value Reference Range Interpretation Comme nts GLUCOSE (test code = 2217) 103 MG/DL BUN (test code = 2208) 13 MG/DL CREATININE (test code = 2214) 0.73 MG/DL eGFR AMER. (test cod e = 93182) 117 ML/MIN/1.73 eGFR NON- AMER. (test code = 30195) 101 ML/MIN/1.73 CALC BUN/CREAT (test code = 2235) 18 RATIO SODIUM (test code = 2231) 139 MEQ/L POTASSIUM (test code = 2228) 4.4 MEQ/L CHLORIDE (test code = 2215) 106 MEQ/L CARBON DIOXIDE (test code = 2206) 22 MEQ/L CALCIUM (test code = 2209) 9.1 MG/DL PROTEIN, TOTAL (test code = 2229) 7.3 G/DL ALBUMIN (test code = 2201) 4.7 G/DL CALC GLOBULIN (test code = 2240) 2.6 G/DL CALC A/G RATIO (test code = 2234) 1.8 RATIO BILIRUBIN, TOTAL (test code = 2207) 0.4 MG/DL ALKALINE PHOSPHATASE (test code = 2204) 79 U/L AST (test code = 2218) 18 U/L ALT (test code = 2219) 13 U/L LIPID [id number] 00:00:00* Test Item Value Reference Range Interpretation Comme nts CHOLESTEROL (test code = 2210) 186 MG/DL TRIGLYCERIDES (test code = 2232) 142 MG/DL HDL CHOLESTEROL (test code = 2220) 47 MG/DL CALC LDL CHOL (test code = 2237) 114 MG/DL RISK RATIO LDL/HDL (test cod e = 2238) 2.43 RATIO LIPID [id number] 00:00:00* Test Item Value Reference Range Interpretation Comme nts CHOLESTEROL (test code = 2210) 186 MG/DL TRIGLYCERIDES (test code = 2232) 142 MG/DL HDL CHOLESTEROL (test code = 2220) 47 MG/DL CALC LDL CHOL (test code = 2237) 114 MG/DL RISK RATIO LDL/HDL (test cod e = 2238) 2.43 RATIO History and Physical Notes Date/Time Note Provider Source 2022-11-30 07:54:31 iCzDejUD2AN4uSVpz36Y TckAYTwYVqqKBFsIT2 o8QVRbjRlRVHyfEtjbLSEjjJ4X1144-91-56I8 7:54:31 HPI: Patient arrives in manual wheelchair with assistance of . is main historian.Dario Dey presents, post lumbar surgical decompression for left lumbar radicular symptoms, at [facility] 07/2022. Post-op , per 's report, patient developed quadriparesis, left > right, with dysphagia and dysarthria . Pre-op MRI cervical spine report dated 05/2022 notable for moderate spinal canal stenosis at C4/5 and C6/7. Cord signal normal. Repeat MRI cervical spine here at [facility] is notable for large cervical central canal without stenosis and no evidence of cervical myelopathy. There is advanced B foraminal narrowing for cervical spine. Mr. 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 5/5 4-/5 Wrist Ext. 5/5 4-/5 Short Haul Driver 5/5 4-/5 Interossei 5/5 4- /5 Hip [...] since July 2022, post lumbar surgery at [facility] Cervical MRI Alejandra 07/2022 without evidence of cervical myelopathy ( there is advanced B cervical foraminal narrowing) Post lumbar surgical decompression July 2022 at [facility] ( no surgical report or clinical [...] wifePost lumbar surgical decompression July 2022 at [facility] with quadriparesis/dysphagia/dysarthria soon afterwards.Quadriparetic since July 2022. MRI 07/2022 [facility] images brought up onto computer screen and [...] been missed during proofreading. Please interpret accordingly. 87006-4Jkmcece and physical foecYG8262-60-31O07:42:51History and physical noteTXT1.2.840.433576.1.13.131.2.7.2.7 08353|[id number] for patient vyeo42657-9Rahadvt and physical noteLNAspirus Stanley Hospital[address] [facility] HospitalTXTX7702577025USUS2 978-33-24H96:42:511.2.840.281244.1.72. 3.15|1.2.840.497028.1.13.131.2.7.2.727 [id number] [facility] 2022-11-14 22:59:49 d/OvCsSiSP77sjdYPTpy YGq81h+U1W0/bF25tp pSA8FtcQKjdanKb1YD6FHq2o1Y2631-64-68E7 2:59:[address] Dove: Patient arrives in manual wheelchair with assistance of . is main historian.Dario Dey presents, post lumbar surgical decompression for left lumbar radicular symptoms, at [facility] 07/2022. 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 5/5 4-/5 Wrist Ext. 5/5 4-/5 Short Haul Driver 5/5 4-/5 Interossei 5/5 4- /5 Hip Flexion 5-/5 5-/5 Knee Ext. 5-/5 5-/5 Knee Flex 5-/5 5-/5 Dorsiflexion 3/5 3/5 EHL 3/5 3/5 Plantarflexion 3/ 3/5 DTRs Right Left Biceps 2+ 2+ [...] Post lumbar surgical decompression July 2022 at [facility] History of severe spinal canal stenosis L4-5 and L3-4 per MRI report May 25, 2022 Dysphagia and dysarthria since July 2022 postopPlan: is main historian patient and both distressed and crying during exam cervical and lumbar preop MRI report reviewed with the patient and wifePost lumbar surgical decompression July 2022 at [facility] with quadriparesis soon afterwards.Quadriparetic since July [...] been missed during proofreading. Please interpret accordingly. 65936-8Rjkxfba and physical qcjpXD7935-05-32N84:54:35History and physical noteTXT1.2.840.926691.1.13.131.2.7.2.7 12603|[id number] for patient mvfw62483-5Lqrpise and physical noteLNAspirus Stanley Hospital[address] [facility] HospitalTXTX7702577025USUS2 822-91-00V55:54:351.2.840.211170.1.72. 3.15|1.2.840.896391.1.13.131.2.7.2.727 [id number] [facility] Notes Date/Time Note Provider Source 2023-04-12 17:47:20 DcDwAMYWxGG0BuHexTx5 3npF6GA 12J8Sh4JqMnGeJvipvmRckKIcQD TbcrK2U5vd1371-72-30A62:47: 20 Patient discharged. Follow up with pcp. VS stable. Answered all questions. No needs at this time. Return if condition worsens. 53518-8Utzpcjqil department TuwvAT4511-79-56C95:48:33Em ergency department NoteTXT1.2.840.133948.1.13. 104.2.7.2.439980|[id number] AVAvailable for patient ydey44963-7DrqlBTUAPYALEXDF ormatted C-CDA narrative [id number] D Kary RN[address] StreetMaggiesaint michael's medical centerTXTX7 [id number] VWLP6420-20-12F70:48:331.2. 840.949799.1.72.3.15|1.2.84 0.640098.1.13.104.2.7.2.727 [id number] Christo Allen Kary RN [facility] 2023-04-12 15:35:56 RyDU6IPOUbNjobUfQoqe XxvPFXA kawP836+A0zIL0+pzC8aeNN2gw8 c19HfGCF846620-50-97M18:35: 56 Pt arrived via private car with c/o having a clear rectal discharge that started a month ago and then stopped, states that it restarted about 1 week ago. Pt has a history of ALS. 69964-9Jlactfcdm department Triage pihqNR1901-46-98V72:38:00Em ergency department Triage noteTXT1.2.840.274553.1.13. 104.2.7.2.567769|[id number] AVAvailable for patient grkq89697-1Euwfbbftm department NoteLNNARRATIVEFormatted C-CDA narrative [id number] L Barker RN[address]TXTX7 [id number] AWTA9636-65-85W69:38:001.2. 840.163492.1.72.3.15|1.2.84 0.194305.1.13.104.2.7.2.727 [id number] Kera Suarez RN [facility] 2022-12-01 09:32:40 ABXqLc7jj4hkqsdhZs9U Qu5pMAh Okup7WYNMIaqK1LAInKVLAzNvb4 m08LAbDQRF1240-04-22Q64:32: 40 Patient is here for mri review. Pain level is 0/10Took no pain medication today. Pain does [place] [address]-8Oqqzv BnmvIE8803-82-06Z71:33:59Nu rse NoteTXT1.2.840.308285.1.13. 131.2.7.2.018935|[id number] VAvailable for patient htgs66813-7Zylbx NoteLNMemorial Hospital of Lafayette [facility] [facility] HospitalTXTX7702 120856LEIG1518-09-21A50:33: 591.2.840.480748.1.72.3.15| 1.2.840.832571.1.13.131.2.7 .2.727879_[id number] [facility] 2022-11-16 09:43:22 bUgx1oNIeYbp1tO4HFHu lqlJPGT h5DszOAjAPu8Xru85Yb1eTCrfRF IzQFlGDcT/0259-63-94D66:43: 22 Chief Complaint Patient presents with Referral Referred by Dr Hercules Neck Pain Neck, left arm Pain level is 9/10Took no pain medication today. Pain radiate neck and left arm. 1. What is your pain location? neck2. How long have you had the pain?new3. When did the pain start? 234. How often do you have pain?constant5. How is the progression since the pain started?worsening6. What is your pain associated with? NA7. What is your pain quality? sharp 8. Where does the pain radiate to? Left arm9. On a scale from 1-10, 1 being the least amount of pain and 10 being the worst, what is your pain level? 12/1009. How severe is your pain?fpuzxh60. What is your pain worsened by? Anything 12. Is your pain?same alll the time 13. Is stiffness present?all day14. Have you had any of the following symptoms associated with your pain? Numbness in right leg, toes15. What treatments have you tried? Back surgery, medication ?Patient occupation [place] [address]-2Ohpwv CtxhDY5724-43-13Q78:50:48Nu rse NoteTXT1.2.840.209133.1.13. 131.2.7.2.711490|[id number] VAvailable for patient kieu11055-2Hdvbd NoteLNKELBROOKEEPDaija Welia HealthDjxytd3608 [facility] HospitalTXTX7702 586255VQHI0088-82-83B00:50: 481.2.840.537041.1.72.3.15| 1.2.840.538746.1.13.131.2.7 .2.727879_[id number] [facility]"
--- NOTE | 2023-04-24 13:14 | RAD REPORT ---
EXAM DESCRIPTION: CT - Head Brain Wo Cont - 04/24/2023 1:08 pm CLINICAL HISTORY: CONFUSED Headache, drowsiness COMPARISON: No comparisons TECHNIQUE: All CT scans are performed using dose optimization technique as appropriate and may inclu de automated exposure control or mA/KV adjustment according to patient size. FINDINGS: No intracranial hemorrhage, hydrocephalus or extra-axial fluid collection.No areas of brai n edema or evidence of midline shift. The paranasal sinuses and mastoids are essentially clear. The calvarium is intact. IMPRESSION: No acute intracranial abnormality.
[2023-04-24 13:35] LABS: Hematocrit 38.8 % (39.6-49.0); Lymphocytes % 18.3 % (15.3-44.8); MCV 97.2 fL (80-100); MPV 7.4 fL (7.6-11.3); Platelets 252 thou/uL (152-406); RBC Red Blood Cell Count 3.99 M/uL (4.33-5.43)
--- NOTE | 2023-04-24 13:38 | RAD REPORT ---
EXAM DESCRIPTION: RAD - Chest Single View - 04/24/2023 1:29 pm CLINICAL HISTORY: AMS Chest pain. FINDINGS: Portable technique limits examination quality. The lungs are grossly clear. Mildly elevated left hemidiaphragm. The heart is normal in size. No disp laced fractures. IMPRESSION: No acute intrathoracic process suspected.
[2023-04-24 13:45] LABS: Protime INR 0.99
[2023-04-24 13:57] LABS: Bilirubin Direct 0.3 mg/dL (0-0.2); Bilirubin Indirect, Calculated 0.4 mg/dL (0.2-0.8); Bilirubin Total 0.7 mg/dL (0.2-1.0); Magnesium 2.1 mg/dL (1.6-2.4); Potassium 3.7 mEq/L (3.5-5.1); Protein, Total 6.5 g/dL (6.4-8.2); Troponin High Sensitivity 23.7 pg/mL (<58.9)
[2023-04-24 14:06] LABS: Specific Gravity 1.026 (1.005-1.030); Urine Bacteria None Seen /HPF (<20); Urine Bilirubin NEGATIVE (Negative); Urine Blood Negative (Negative); Urine Clarity Clear (Clear); Urine Color Yellow (Yellow); Urine Glucose NEGATIVE (Negative); Urine Mucus Slight /HPF (None Seen); Urine Protein NEGATIVE (Negative); Urine RBC <5 /HPF (None Seen); Urine Urobilinogen 3+ (Normal); Urine pH 6.5 (5.0-7.0)
[2023-04-24 14:13] LABS: SARS-CoV-2 Antigen Rapid Res Negative (Negative)
--- NOTE | 2023-04-24 14:44 | ER ---
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 EMS states that they pt was only able to report chest pain and headache. Coronavirus screen: At this time, the client does not indicate any symptoms associated with coronavirus-19. Ebola Screen: No symptoms or risks identified at this time. Initial Sepsis Screen: Does the patient meet any 2 criteria? No. Patient's initial sepsis screen is negative. Does the patient have a suspected source of infection? No. Patient's initial sepsis screen is negative. Risk Assessment: Do you want to hurt yourself or someone else? Patient reports no desire to harm self or others. Onset of symptoms was April 24, 2023. 12:41 Method Of Arrival: EMS: [facility] kc6 12:41 Acuity: DANIEL 3 kc6 Triage Assessment: 12:42 General: Appears in no apparent distress. comfortable, unkempt, well developed, kc6 Behavior is calm, cooperative, appropriate for age. Pain: Complains of pain in chest. EENT: No signs and/or symptoms were reported regarding the EENT system. Neuro: Level of Consciousness is awake, alert, obeys commands, Oriented to person, place, time, situation, Appropriate for age Reports headache. Cardiovascular: Reports chest pain, Capillary refill < 3 seconds Edema is 3+ to left foot and right foot pitting to left foot and right foot. Respiratory: Airway is patent Trachea midline Respiratory effort is even, unlabored, Respiratory pattern is regular, symmetrical. GI: No signs and/or symptoms were reported involving the gastrointestinal system. : No signs and/or symptoms were reported regarding the genitourinary system. Derm: No signs and/or symptoms reported regarding the dermatologic system. Skin is intact, is healthy with good turgor, Skin is pink, warm \T\ dry. Musculoskeletal: No signs and/or symptoms reported regarding the musculoskeletal system. Circulation, motion, and sensation intact. Historical: - Allergies: 12:42 No Known Allergies; kc6 - PMHx: 12:42 Amyotrophic Lateral Sclerosis ; . (Unknown); Hypertension; Transient cerebral ischemia; kc6 - PSHx: 12:42 Lower back surgery (yr); kc6 - Immunization history:: Adult Immunizations unknown. - Social history:: Smoking status: unknown. Screenin:45 [facility] ED Fall Risk Assessment (Adult) History of falling in the last 3 months, kc6 including since admission No falls in past 3 months (0 pts) Confusion or Disorientation No (0 pts) Intoxicated or Sedated No (0 pts) Impaired Gait No (0 pts) Mobility Assist Device Used No (0 pt) Altered Elimination No (0 pt) Score/Fall Risk Level 0 - 2 = Low Risk. Abuse screen: Denies threats or abuse. Denies injuries from another. Nutritional screening: No deficits noted. Tuberculosis screening: No symptoms or risk factors identified. Assessment: 12:45 Reassessment: please see triage assessment. [facility] 13:45 Reassessment: Patient appears in no apparent distress at this time. No changes from [facility] previously documented assessment. Patient and/or family updated on plan of care and expected duration. Pain level reassessed. Patient is alert, oriented x 3, equal unlabored respirations, skin warm/dry/pink. 14:45 Reassessment: Patient appears in no apparent distress at this time. No changes from 6 previously documented assessment. Patient and/or family updated on plan of care and expected duration. Pain level reassessed. Patient is alert, oriented x 3, equal unlabored respirations, skin warm/dry/pink. 15:35 Reassessment: Patient appears in no apparent distress at this time. No changes from [facility] previously documented assessment. Patient and/or family updated on plan of care and expected duration. Pain level reassessed. Patient is alert, oriented x 3, equal unlabored respirations, skin warm/dry/pink. Vital Signs: 12:41 BP 154 / 93; Pulse 86; Resp 16 S; Temp 98.2(O); Pulse Ox 100% on R/A; Weight 64.86 kg kc6 (M); 13:47 BP 152 / 94; Pulse 82; Resp 17 S; Pulse Ox 100% on R/A; kc6 15:36 BP 148 / 83; Pulse 83; Resp 16 S; Pulse Ox 100% on R/A; kc6 16:30 BP 149 / 78; Pulse 81; Resp 18; Temp 97.6; Pulse Ox 98% on R/A; ph ED Course: 12:41 Patient arrived in ED. kc6 12:41 Alvina Hughes MD is Attending Physician. sp3 12:42 Triage completed. kc6 12:42 Arm band placed on. kc6 12:45 Idania Santoyo RN is Primary Nurse. kc6 12:45 Patient has correct armband on for positive identification. Placed in gown. Bed in low kc6 position. Call light in reach. Side rails up X2. Client placed on continuous cardiac and pulse oximetry monitoring. NIBP monitoring applied. 12:45 Patient maintains SpO2 saturation greater than 95% on room air. kc6 13:09 CT Head Brain wo Cont In Process Unspecified. EDMS 13:31 XRAY Chest (1 view) In Process Unspecified. EDMS 13:34 Initial lab(s) drawn, by tx, sent to lab. Inserted saline lock: 22 gauge in right ph forearm, using aseptic technique. Blood collected. 13:35 Troponin HS Sent. ph 13:35 PT-INR Sent. ph 13:35 NT PRO-BNP Sent. ph 13:35 Magnesium Sent. ph 13:35 LFT's Sent. ph 13:35 CBC with Diff Sent. ph 13:35 Basic Metabolic Panel Sent. ph 13:46 Straight cath inserted, using sterile technique, 16 Fr. Specimen obtained. Returned kc6 clear yellow urine. Patient tolerated well. 13:46 UAM Sent. kc6 13:46 Flu Sent. kc6 13:46 SARS RAPID Sent. kc6 16:57 No provider procedures requiring assistance completed. IV discontinued, intact, ph bleeding controlled, No redness/swelling at site. Pressure dressing applied. Administered Medications: No medications were administered Medication: 13:25 VIS not applicable for this client. ph Outcome: 14:43 Discharge ordered by . sp3 16:58 Discharged to home via ambulance, ph 16:58 Condition: good 16:58 Discharge instructions given to family, Instructed on discharge instructions, follow up and referral plans. Demonstrated understanding of instructions, follow-up care, 16:58 Patient left the ED. ph Signatures: Dispatcher [employer] EDMS Debo Lacey RN RN ph Alvina Hughes MD MD sp3 Idania Santoyo, RN RN kc6 Corrections: (The following items were deleted from the chart) 12:43 12:42 PMHx: stroke (Hypertension); kc6 kc6
--- NOTE | 2023-04-24 14:44 | EDPHYS ---
Physician Documentation [facility] Name: Dario Dey Age: 62 yrs Sex: Male : 1960 Arrival Date: 04/24/2023 Time: 12:40 Bed 5 Private MD: ED Physician Alvina Hughes HPI: 04/24 12:57 This 62 yrs old Male presents to ER via EMS with complaints of Confused / AMS. sp3 12:57 62-year-old male with history of ALS, hypertension, prior TIAs now presents to the ED sp3 via EMS for chief complaint altered mental status and possible headache and chest pain as reported by family member who is not currently in the ED. Patient is in no acute distress and vital signs have been normal. Patient is nonverbal and grunts without any intentional communication. It is unknown what the baseline is at this time. History, physical and review of systems severely limited secondary to these clinical circumstances.. Historical: - Allergies: 12:42 No Known Allergies; kc6 - PMHx: 12:42 Amyotrophic Lateral Sclerosis ; . (Unknown); Hypertension; Transient cerebral ischemia; kc6 - PSHx: 12:42 Lower back surgery (yr); kc6 - Immunization history:: Adult Immunizations unknown. - Social history:: Smoking status: unknown. ROS: 12:59 Unable to obtain ROS due to altered mental status, baseline dementia, sp3 Exam: 12:59 Constitutional: This is a well developed, well nourished patient who is awake, alert, sp3 and in no acute distress. Head/Face: Normocephalic, atraumatic. Eyes: Pupils equal round and reactive to light, extra-ocular motions intact. Lids and lashes normal. Conjunctiva and sclera are non-icteric and not injected. Cornea within normal limits. Periorbital areas with no swelling, redness, or edema. Neck: Trachea midline, no thyromegaly or masses palpated, and no cervical lymphadenopathy. Supple, full range of motion without nuchal rigidity, or vertebral point tenderness. No Meningismus. Chest/axilla: Normal chest wall appearance and motion. Nontender with no deformity. No lesions are appreciated. Cardiovascular: Regular rate and rhythm with a normal S1 and S2. No gallops, murmurs, or rubs. Normal PMI, no JVD. No pulse deficits. Respiratory: Lungs have equal breath sounds bilaterally, clear to auscultation and percussion. No rales, rhonchi or wheezes noted. No increased work of breathing, no retractions or nasal flaring. Abdomen/GI: Soft, non-tender, with normal bowel sounds. No distension or tympany. No guarding or rebound. No evidence of tenderness throughout. Skin: Warm, dry with normal turgor. Normal color with no rashes, no lesions, and no evidence of cellulitis. 12:59 Neuro: Full neurological assessment not possible. Patient is grunting and moving his right arm. Patient has ongoing weakness and limited movement secondary to ALS., 13:46 ECG was reviewed by the Attending Physician. EKG demonstrates right bundle branch block sp3 with nonspecific diffuse ST's ST changes without evidence of acute ischemia. Vital Signs: 12:41 BP 154 / 93; Pulse 86; Resp 16 S; Temp 98.2(O); Pulse Ox 100% on R/A; Weight 64.86 kg kc6 (M); 13:47 BP 152 / 94; Pulse 82; Resp 17 S; Pulse Ox 100% on R/A; kc6 15:36 BP 148 / 83; Pulse 83; Resp 16 S; Pulse Ox 100% on R/A; kc6 16:30 BP 149 / 78; Pulse 81; Resp 18; Temp 97.6; Pulse Ox 98% on R/A; ph MDM: 12:48 Patient medically screened. sp3 13:00 Data reviewed: vital signs, nurses notes, EMS record, old medical records, lab test sp3 result(s), EKG, radiologic studies. ED course: 62-year-old male with ALS with unknown chief complaint other than confusion and altered mental status. Given his history, disco V almost anything. Differential diagnosis will be broad and includes ACS, sepsis, UTI, pneumonia, TIA/CVA spectrum, other intracranial pathology, among several others. Workup will include CT scan of the head, urine analysis, laboratory work, swabs, chest x-ray and general observation and supportive care. Disposition pending workup and patient course.. 14:42 ED course: Full workup is negative including CT scan, urinalysis, swabs, laboratory sp3 work and chest x-ray. We will safely discharge patient home and try and contact family with results.. 04/24 12:51 Order name: Basic Metabolic Panel; Complete Time: 14:30 04/24 12:51 Order name: CBC with Diff; Complete Time: 13:44 04/24 12:51 Order name: LFT's; Complete Time: 14:30 04/24 12:51 Order name: Magnesium; Complete Time: 14:30 04/24 12:51 Order name: NT PRO-BNP; Complete Time: 14:30 04/24 12:51 Order name: PT-INR; Complete Time: 13:47 04/24 12:51 Order name: Troponin HS; Complete Time: 14:30 3 04/24 12:51 Order name: SARS RAPID; Complete Time: 14:30 04/24 12:51 Order name: Flu; Complete Time: 14:41 04/24 12:51 Order name: UAM; Complete Time: 14:30 04/24 12:51 Order name: Lactate w/ 2H reflex if indic.; Complete Time: 14:30 04/24 12:51 Order name: XRAY Chest (1 view); Complete Time: 13:44 04/24 12:51 Order name: CT Head Brain wo Cont; Complete Time: 13:44 04/24 12:51 Order name: EKG; Complete Time: 12:52 04/24 12:51 Order name: Cardiac monitoring; Complete Time: 13:35 04/24 12:51 Order name: EKG - Nurse/Tech; Complete Time: 13:35 04/24 12:51 Order name: IV Saline Lock; Complete Time: 13:28 04/24 12:51 Order name: Labs collected and sent; Complete Time: 13:28 04/24 12:51 Order name: O2 Per Protocol; Complete Time: 12:52 04/24 12:51 Order name: O2 Sat Monitoring; Complete Time: 12:52 04/24 12:51 Order name: Cath: cath ua; Complete Time: 13:44 sp3 Administered Medications: No medications were administered Disposition Summary: 04/24/23 14:43 Discharge Ordered Notes: Location: Home sp3 Condition: Stable sp3 Diagnosis - Normal exam, resolved altered mental status sp3 Followup: sp3 - With: Private Physician - When: Upon discharge from the Emergency Department - Reason: Continuance of care Discharge Instructions: - Discharge Summary Sheet sp3 - Confusion sp3 Forms: - Medication Reconciliation Form sp3 - Thank You Letter sp3 - Antibiotic Education sp3 - Prescription Opioid Use sp3 - Patient Portal Instructions sp3 - Leadership Thank You Letter sp3 Signatures: Dispatcher [employer] EDAlvina Patiño MD MD sp3 Idania Santoyo RN RN kc6 Corrections: (The following items were deleted from the chart) 12:43 12:42 PMHx: stroke (Hypertension); kc6 kc6
[2023-04-24 18:55] VITALS: BP 149/78; TEMP 97.6; O2SAT 98
--- NOTE | 2023-04-25 17:25 | EKG ---
Test Date: 2023-04-24 Test Time: 13:38:20 Big Data Lead: CHARLEE MEASUREMENT RESULTS: Intervals: Rate: 83 KS: 106 QRSD: 146 QT: 418 QTc: 491 [place]: P: 66 KS: 106 QRS: -72 T: 24 INTERPRETIVE STATEMENTS: Sinus rhythm with short KS Right bundle branch block Left anterior fascicular block Bifascicular block Abnormal ECG Compared to ECG 03/04/2023 18:23:56 Left anterior fascicular block now present Bifascicular block now present Left-axis deviation no longer present Electronically Signed On 04-25-23 17:23:27 CUSTOMER COUNTER ASSOCIATE by Reggie Montaño
== END ==
LOC: ER 12:40
DX: R41.82 Altered mental status, unspecified (principal)
CPT/HCPCS: 36415; 51702; 70450; 71045; 80048; 80076; 81001; 83605; 83735; 83880; 84484; 85025; 85610; 87804; 87811; 93005; 99285